=== PATIENT | female | born 1955 ===

== ENCOUNTER 2018-05-16 15:04 | Inpatient (IN) | payer OTHER ==
[2018-05-16] MEDS ORDERED: Sodium Chloride 0.9% 1,000 ML IV ONE ×2 (15:21→16:19)
[2018-05-16] MEDS ORDERED: Gadodiamide 287 mg/ml 20 ml IV ONE (15:24)
--- NOTE | 2018-05-16 15:24 | C.PDOC ---
History Of Present Illness 62 year old female presents to the ED complaining of abdominal pain since 1100 this morning. Associated symptoms include nausea, vomiting and loose stool. Patient states prior to symptoms she ate chicken soup that was left outside from last night. Last bowel movement was today. Time Seen by Provider: 05/16/18 15:12 Chief Complaint (Nursing): Abdominal Pain History Per: Patient History/Exam Limitations: no limitations Onset/Duration Of Symptoms: Hrs Current Symptoms Are (Timing): Still Present Context: Food Location Of Pain/Discomfort: Diffuse Radiation Of Pain To:: None Associated Symptoms: Nausea, Vomiting, Diarrhea Last Bowel Movement: Today Past Medical History Reviewed: Historical Data, Nursing Documentation, Vital Signs Vital Signs: Last Vital Signs Temp 98.2 F 05/16/18 15:07 Pulse 61 05/16/18 15:07 Resp 21 05/16/18 15:07 BP 152/80 H 05/16/18 15:07 Pulse Ox 96 05/16/18 16:20 - Medical History PMH: HTN, Hyperlipidemia Surgical History: No Surg Hx Family History: States: No Known Family Hx - Social History Hx Alcohol Use: No Hx Substance Use: No Review Of Systems Gastrointestinal: Positive for: Nausea, Vomiting, Abdominal Pain, Diarrhea Physical Exam - Physical Exam Appears: Non-toxic Skin: Warm, Dry, No Rash, Other (swelling around nail bed of 5th finger of right hand, no induration, no fluctuance ) Head: Atraumatic Eye(s): bilateral: Normal Inspection Nose: Normal Oral Mucosa: Moist Neck: Normal ROM Chest: Symmetrical Cardiovascular: Rhythm Regular, Murmur Respiratory: Normal Breath Sounds, No Rales, No Rhonchi, No Wheezing Gastrointestinal/Abdominal: Bowel Sounds (active ), Tenderness (Diffused tenderness ), No Guarding, No Rebound Extremity: Normal ROM Neurological/Psych: Oriented x3, Normal Speech Gait: Steady ED Course And Treatment - Laboratory Results Result Diagrams: 05/16/18 15:50 05/16/18 15:50 O2 Sat by Pulse Oximetry: 96 (RA) Pulse Ox Interpretation: Normal Medical Decision Making Medical Decision Making: Orders: - Bloodwork - Pepcid 20mg IVP - Toradol 30mg IVP - Zofran 4mg IVP - Fluids - UA Progress: 1615 Labs reviewed and has leukocytosis. Lipase is elevated >1000. Will order IV CT A/P. Patient re-evaluated at bedside and states pain has improved. She denies any pain localized to epigastric or RUQ. Abdomen remains soft, negative [place] sign. Patient reevaluated and reports pain has returned, not as severe but has pain. CT report is still pending, radiology sent report to [id number] Contact hospitalist for obs admission of pancreatitis. CT results still pending. Spoke with DR Rustam Tabares who requests adding alcohol and UDS. Also to admit to incoming hospitalist Dr Llanos Disposition - Disposition Disposition: HOSPITALIZED Disposition Time: 18:22 Condition: STABLE - POA Present On Arrival: None - Clinical Impression Clinical Impression: Pancreatitis - PA / DATA ENTRY / Resident Statement MD/DO has reviewed & agrees with the documentation as recorded. - Scribe Statement The provider has reviewed the documentation as recorded by the Scribe Cathy Mccauley All medical record entries made by the Phyllisibe were at my direction and personally dictated by me. I have reviewed the chart and agree that the record accurately reflects my personal performance of the history, physical exam, medical decision making, and the department course for this patient. I have also personally directed, reviewed, and agree with the discharge instructions and disposition. Decision To Admit - Pt Status Changed To: Hospital Disposition Of: Observation - . Bed Request Type: Regular Admitting Physician: Jeff Llanos Patient Diagnosis: Pancreatitis
[2018-05-16] MEDS ORDERED: Sodium Chloride 0.9% 1,000 ML ONE (15:43)
[2018-05-16 16:04] LABS: BASO # 0.1 K/uL (0.0-0.2); BASO % 0.3 % (0.0-2.0); EOS % 0.2 % (0.0-4.0); HEMOGLOBIN 13.2 g/dL (11.0-16.0); LYMPH # 2.5 K/uL (1.0-4.3); LYMPH % 11.6 % (20.0-40.0); MEAN CELL VOLUME 75.3 fL (81.0-99.0); MEAN CORPUSCULAR HEMOGLOBIN 26.2 pg (27.0-31.0); MEAN CORPUSCULAR HGB CONC 34.7 g/dL (33.0-37.0); MEAN PLATELET VOLUME 8.5 fL (7.2-11.7); MONO # 0.7 K/uL (0.0-0.8); MONO % 3.3 % (0.0-10.0); NEUT # 18.4 K/uL (1.8-7.0); NEUT % 84.6 % (50.0-75.0); NRBC % 0.1 % (0.0-2.0); RBC 5.06 Mil/uL (3.80-5.20); RED CELL DISTRIBUTION WIDTH 15.7 % (11.5-14.5); WHITE BLOOD COUNT 21.8 K/uL (4.8-10.8)
[2018-05-16 16:13] LABS: ALB/GLOB RATIO 1.1 (1.0-2.1); ALBUMIN 4.1 g/dL (3.5-5.0); GFR NON-AFRICAN AMERICAN > 60; LIPASE 1739 U/L (23-300)
[2018-05-16 16:15] LABS: ALT/SGPT 455 U/L (9-52); AST/SGOT 188 U/L (14-36); BLOOD UREA NITROGEN 12 mg/dL (7-17)
[2018-05-16 16:51] LABS: URINE BACTERIA RARE (<OCC); URINE BILIRUBIN NEGATIVE (NEGATIVE); URINE BLOOD NEGATIVE (NEGATIVE); URINE CLARITY Clear (Clear); URINE GLUCOSE (UA) 3+ mg/dL (Normal); URINE LEUKOCYTE ESTERASE NEG Leu/uL (Negative); URINE PROTEIN NEGATIVE (NEGATIVE)
[2018-05-16 17:03] LABS: URINE COLOR YELLOW (YELLOW)
[2018-05-16] MEDS ORDERED: Iodixanol 320 MG/ML 100 ML BOTTLE IV ONE (17:20)
--- NOTE | 2018-05-16 19:19 | CP.PCM.HP ---
<Aung Vaughan - Last Filed: 05/16/18 21:26> History of Present Illness - History of Present Illness History of Present Illness: This patient is a 62 year old female with a PMHx of HTN, and diabetes who presents to the hospital with complaints of 10/10, sharp, postprandial abdominal pain without radiation that began at 11AM today. Patient describes the pain as "crushing" and points to her her lateral abdomen b/l when describing where the pain is. Patient has had this pain before in the past after eating with spontaneous resolution. She denies any fevers, chills, headache, lightheadedness, chest pain, shortness of breath, palpitations, or urinary symptoms. Patient did complain of nausea, and about 4-5 episodes of NBNB vomiting while at home. She also complained of 1 non-bloody loose bowel movement. ROS: As stated above PMHx: HTN, Diabetes PSHx: Fibroma/Ovarian removal (Over 20 years ago) Allergies: Penicllin (Dizziness) SocialHx: Denies Tobacco, alcohol, and illicit drug use Hos: Denies Fam Hx: Mother (HTN), Dad( Asthma/Bronchitis) Meds: Per NOV. PMD: Dr. Crowell. Present on Admission - Present on Admission Any Indicators Present on Admission: No Review of Systems - Review of Systems Review of Systems: As per HPI Past Patient History - Past Social History Smoking Status: Never Smoked - CARDIAC Hx Hypertension: Yes - ENDOCRINE/METABOLIC Hx Diabetes Mellitus Type 2: Yes - PSYCHIATRIC Hx Substance Use: No Meds Allergies/Adverse Reactions: Allergies Allergy/AdvReac Type Severity Reaction Status Date / Time No Known Allergies Allergy Verified 05/16/18 15:11 Physical Exam - Constitutional Appears: Well, Non-toxic, No Acute Distress - Head Exam Head Exam: ATRAUMATIC, NORMAL INSPECTION, NORMOCEPHALIC - Eye Exam Eye Exam: EOMI, Normal appearance, PERRL. absent: Scleral icterus - ENT Exam ENT Exam: Mucous Membranes Moist - Neck Exam Neck exam: Negative for: Lymphadenopathy - Respiratory Exam Respiratory Exam: Clear to Auscultation Bilateral, NORMAL BREATHING PATTERN. absent: Accessory Muscle Use, Rales, Rhonchi, Wheezes - Cardiovascular Exam Cardiovascular Exam: RRR, +S1, +S2. absent: JVD - GI/Abdominal Exam GI & Abdominal Exam: Normal Bowel Sounds, Soft, Tenderness (RUQ, Epigastric, LLQ /RLQ(Minor) ). absent: Firm, Guarding, Hernia, Rebound, Rigid Additional comments: Lockhart's Negative - Extremities Exam Extremities exam: Positive for: normal capillary refill. Negative for: pedal edema - Neurological Exam Neurological exam: Alert, Oriented x3 - Psychiatric Exam Psychiatric exam: Normal Affect, Normal Mood - Skin Skin Exam: Dry, Intact, Normal Color, Warm Results - Vital Signs Recent Vital Signs: Last Vital Signs Temp 99.9 F H 05/16/18 18:34 Pulse 75 05/16/18 18:34 Resp 18 05/16/18 18:34 BP 126/67 05/16/18 18:34 Pulse Ox 93 L 05/16/18 18:34 - Labs Result Diagrams: 05/16/18 15:50 05/16/18 15:50 Labs: Laboratory Results - last 24 hr 05/16/18 05/16/18 05/16/18 15:50 15:50 16:45 WBC 21.8 H RBC 5.06 Hgb 13.2 Hct 38.1 MCV 75.3 L MCH 26.2 L MCHC 34.7 RDW 15.7 H Plt Count 525 H MPV 8.5 Neut % (Auto) 84.6 H Lymph % (Auto) 11.6 L [place] % (Auto) 3.3 Eos % (Auto) 0.2 Baso % (Auto) 0.3 Neut # (Auto) 18.4 H Lymph # (Auto) 2.5 [place] # (Auto) 0.7 Eos # (Auto) 0.0 Baso # (Auto) 0.1 Sodium 137 Potassium 4.7 Chloride 96 L Carbon Dioxide 30 Anion Gap 16 BUN 12 Creatinine 0.6 L Est GFR ( Amer) > 60 Est GFR (Non-Af Amer) > 60 Random Glucose 355 H Calcium 10.0 Total Bilirubin 2.3 H AST 188 H ALT 455 H Alkaline Phosphatase 364 H Total Protein 7.9 Albumin 4.1 Globulin 3.9 Albumin/Globulin Ratio 1.1 Lipase 1739 H Urine Color Yellow Urine Clarity Clear Urine pH 6.0 Ur Specific [place] 1.027 Urine Protein Negative Urine Glucose (UA) 3+ H Urine Ketones 1+ H Urine Blood Negative Urine Nitrate Negative Urine Bilirubin Negative Urine Urobilinogen 4.0 H Ur Leukocyte Esterase Neg Urine WBC (Auto) 2 Urine RBC (Auto) 1 Urine Bacteria Rare Alcohol, Quantitative 05/16/18 18:36 WBC RBC Hgb Hct MCV MCH MCHC RDW Plt Count MPV Neut % (Auto) Lymph % (Auto) [place] % (Auto) Eos % (Auto) Baso % (Auto) Neut # (Auto) Lymph # (Auto) [place] # (Auto) Eos # (Auto) Baso # (Auto) Sodium Potassium Chloride Carbon Dioxide Anion Gap BUN Creatinine Est GFR ( Amer) Est GFR (Non-Af Amer) Random Glucose Calcium Total Bilirubin AST ALT Alkaline Phosphatase Total Protein Albumin Globulin Albumin/Globulin Ratio Lipase Urine Color Urine Clarity Urine pH Ur Specific [place] Urine Protein Urine Glucose (UA) Urine Ketones Urine Blood Urine Nitrate Urine Bilirubin Urine Urobilinogen Ur Leukocyte Esterase Urine WBC (Auto) Urine RBC (Auto) Urine Bacteria Alcohol, Quantitative < 10 Assessment & Plan - Assessment and Plan (Free Text) Assessment: 62 year old female with a PMHx of HTN, and diabetes who presents to the hospital with complaints of 10/10, sharp, postprandial abdominal pain without radiation. CT Scan on admission showed dilated common bile duct. Plan: 1. Choledocholithiasis CT Abd/Pelvis (Adm): Shows stone in the CBD. ER: Bloodwork, Pepcid, Toradol 30mg IVP, Zofran 4mg IVP, NS Bolus x 2, UA WBC/T.Panda/AST/ALT/Alk Phos/Lipase - Elevated. UA/Urine Tox - Negative Aztreonam 1GM Q8H Morphine 1mg Q4PRN Zofran PRN Protonix Daily NS @ 100mls/hr Tylenol PRN NPO Diet General Surgery Consulted (Dr. Marshall) GI Consulted (Dr. López) 2. Hx of HTN Cont. Home Meds Losartan 50mg PO Daily 3. Hx of Diabetes. Home Metformin (Held) Insulin Sliding Scale (Medium) ACHS Proph SCD's Protonix NPO Patient seen and discussed with Attending (Dr. Llanos) Aung Vaughan, PGY-2 <Jeff Llanos P - Last Filed: 05/17/18 07:14> Results - Vital Signs Recent Vital Signs: Last Vital Signs Temp 99.2 F 05/17/18 00:33 Pulse 79 05/17/18 00:33 Resp 20 05/17/18 00:33 BP 126/73 05/17/18 00:33 Pulse Ox 94 L 05/17/18 00:35 - Labs Result Diagrams: 05/16/18 15:50 05/16/18 15:50 Labs: Laboratory Results - last 24 hr 05/16/18 05/16/18 05/16/18 15:50 15:50 16:45 WBC 21.8 H RBC 5.06 Hgb 13.2 Hct 38.1 MCV 75.3 L MCH 26.2 L MCHC 34.7 RDW 15.7 H Plt Count 525 H MPV 8.5 Neut % (Auto) 84.6 H Lymph % (Auto) 11.6 L [place] % (Auto) 3.3 Eos % (Auto) 0.2 Baso % (Auto) 0.3 Neut # (Auto) 18.4 H Lymph # (Auto) 2.5 [place] # (Auto) 0.7 Eos # (Auto) 0.0 Baso # (Auto) 0.1 Sodium 137 Potassium 4.7 Chloride 96 L Carbon Dioxide 30 Anion Gap 16 BUN 12 Creatinine 0.6 L Est GFR ( Amer) > 60 Est GFR (Non-Af Amer) > 60 POC Glucose (mg/dL) Random Glucose 355 H Calcium 10.0 Total Bilirubin 2.3 H AST 188 H ALT 455 H Alkaline Phosphatase 364 H Total Protein 7.9 Albumin 4.1 Globulin 3.9 Albumin/Globulin Ratio 1.1 Lipase 1739 H Urine Color Yellow Urine Clarity Clear Urine pH 6.0 Ur Specific [place] 1.027 Urine Protein Negative Urine Glucose (UA) 3+ H Urine Ketones 1+ H Urine Blood Negative Urine Nitrate Negative Urine Bilirubin Negative Urine Urobilinogen 4.0 H Ur Leukocyte Esterase Neg Urine WBC (Auto) 2 Urine RBC (Auto) 1 Urine Bacteria Rare Urine Opiates Screen Urine Methadone Screen Ur Barbiturates Screen Ur Phencyclidine Scrn Ur Amphetamines Screen U Benzodiazepines Scrn U Oth Cocaine Metabols U Cannabinoids Screen Alcohol, Quantitative 05/16/18 05/16/18 05/16/18 18:36 20:42 21:13 WBC RBC Hgb Hct MCV MCH MCHC RDW Plt Count MPV Neut % (Auto) Lymph % (Auto) [place] % (Auto) Eos % (Auto) Baso % (Auto) Neut # (Auto) Lymph # (Auto) [place] # (Auto) Eos # (Auto) Baso # (Auto) Sodium Potassium Chloride Carbon Dioxide Anion Gap BUN Creatinine Est GFR ( Amer) Est GFR (Non-Af Amer) POC Glucose (mg/dL) 323 H Random Glucose Calcium Total Bilirubin AST ALT Alkaline Phosphatase Total Protein Albumin Globulin Albumin/Globulin Ratio Lipase Urine Color Urine Clarity Urine pH Ur Specific [place] Urine Protein Urine Glucose (UA) Urine Ketones Urine Blood Urine Nitrate Urine Bilirubin Urine Urobilinogen Ur Leukocyte Esterase Urine WBC (Auto) Urine RBC (Auto) Urine Bacteria Urine Opiates Screen Negative Urine Methadone Screen Negative Ur Barbiturates Screen Negative Ur Phencyclidine Scrn Negative Ur Amphetamines Screen Negative U Benzodiazepines Scrn Negative U Oth Cocaine Metabols Negative U Cannabinoids Screen Negative Alcohol, Quantitative < 10 05/17/18 02:14 WBC RBC Hgb Hct MCV MCH MCHC RDW Plt Count MPV Neut % (Auto) Lymph % (Auto) [place] % (Auto) Eos % (Auto) Baso % (Auto) Neut # (Auto) Lymph # (Auto) [place] # (Auto) Eos # (Auto) Baso # (Auto) Sodium Potassium Chloride Carbon Dioxide Anion Gap BUN Creatinine Est GFR ( Amer) Est GFR (Non-Af Amer) POC Glucose (mg/dL) 299 H Random Glucose Calcium Total Bilirubin AST ALT Alkaline Phosphatase Total Protein Albumin Globulin Albumin/Globulin Ratio Lipase Urine Color Urine Clarity Urine pH Ur Specific [place] Urine Protein Urine Glucose (UA) Urine Ketones Urine Blood Urine Nitrate Urine Bilirubin Urine Urobilinogen Ur Leukocyte Esterase Urine WBC (Auto) Urine RBC (Auto) Urine Bacteria Urine Opiates Screen Urine Methadone Screen Ur Barbiturates Screen Ur Phencyclidine Scrn Ur Amphetamines Screen U Benzodiazepines Scrn U Oth Cocaine Metabols U Cannabinoids Screen Alcohol, Quantitative Attending/Attestation - Attestation I have personally seen and examined this patient.: Yes I have fully participated in the care of the patient.: Yes I have reviewed all pertinent clinical information: Yes Notes (Text): Assessment * Gall stone pancreatitis, symptoms for 1 day, at time of exam the symptoms improved probably passed the stone * DM * Cholelithiasis, tranaminitis from above Plan * NPO * Azactam as patient is allergic to pcn * IVF * Hold metformin, insulin sliding scale * Serial USG to follow if calculus passed, along with monitor AST/ALT, lipase * Cholecystectomy once clinically obstructive symptoms resolved * Surgery consult * GI consult, as may need for ERCP if obstructive symptoms not resolved * See orders for detail.
[2018-05-16] MEDS ORDERED: Sodium Chloride 0.9% 1,000 ML IV SCH ×5 (19:30→21:42)
[2018-05-16] MEDS ORDERED: Aztreonam 1 GM in Sodium Chloride 0.9% 100 ML IVPB ONE (20:22)
[2018-05-16 21:23] LABS: BARBITURATES, UR NEGATIVE (NEGATIVE); BENZODIAZEPINES, UR NEGATIVE (NEGATIVE); OPIATES, UR NEGATIVE (NEGATIVE); PHENCYCLIDINE, UR NEGATIVE (NEGATIVE)
[2018-05-16] MEDS: (Novolin R) Insulin Human Regular 100 units/ml vial SC SCH (21:41)
--- NOTE | 2018-05-16 21:48 | CP.PCM.CON ---
History of Present Illness - History of Present Illness History of Present Illness: Gen Sx: Dr Marshall Re: Gallstone pancreatitis Pt is a 62F with a PMHx of HTN and DM. Pt presents w/ chief complaint of 10/10 , sharp RUQ pain. Pt states the pain started after eating this morning around 11AM. Pt states she has had this pain at least 4 times over the past two years, and is always associated with eating. It is also associated with nausea and pt has had several episodes of non-billious non-bloody emesis as well. Denies any f/c, sob or chest pain. PMHx: HTN, Diabetes PSHx: open unilateral oopherectomy and possibly myomectomy (pt unclear) Allergies: Penicllin (Dizziness) CT in ED shows distended CBD with intra-ductal choledocholithiasis and resultant dilation of both intra-hepatic and extra-hepatic ducts. Review of Systems - Review of Systems All systems: reviewed and no additional remarkable complaints except (as per hpi ) Past Patient History - Past Social History Smoking Status: Never Smoked - CARDIAC Hx Hypertension: Yes - ENDOCRINE/METABOLIC Hx Diabetes Mellitus Type 2: Yes - PSYCHIATRIC Hx Substance Use: No Meds Allergies/Adverse Reactions: Allergies Allergy/AdvReac Type Severity Reaction Status Date / Time No Known Allergies Allergy Verified 05/16/18 15:11 - Medications Medications: Current Medications Acetaminophen (Tylenol 325 Mg Supp) 325 mg IA Q6 PRN PRN Reason: Fever >100.4 F Aztreonam 1 gm/ Sodium (Chloride) 100 mls @ 100 mls/hr IVPB Q8H DAVID PRN Reason: Protocol Sodium Chloride (Sodium Chloride 0.9%) 1,000 mls @ 200 mls/hr IV .Q5H [facility] Insulin Human Regular (Novolin R) 0 unit SC ACHS DAVID PRN Reason: Protocol Last Admin: 05/16/18 21:41 Dose: 2 units Losartan Potassium (Cozaar) 50 mg PO DAILY [facility] Morphine Sulfate (Morphine) 1 mg IVP Q4H PRN PRN Reason: Pain, severe (8-10) Ondansetron HCl (Zofran Inj) 4 mg IVP Q6H PRN PRN Reason: Nausea/Vomiting Pantoprazole Sodium (Protonix Inj) 40 mg IVP DAILY [facility] Pneumococcal Polyvalent Vaccine (Pneumovax 23 Vaccine) 0.5 ml IM .ONCE ONE Stop: 05/18/18 10:01 Physical Exam - Constitutional Appears: Non-toxic, No Acute Distress - Head Exam Head Exam: NORMAL INSPECTION - Eye Exam Eye Exam: Normal appearance - ENT Exam ENT Exam: Mucous Membranes Dry - Respiratory Exam Respiratory Exam: absent: Respiratory Distress - Cardiovascular Exam Cardiovascular Exam: REGULAR RHYTHM. absent: Tachycardia - GI/Abdominal Exam GI & Abdominal Exam: Soft, Tenderness (epigastric and RUQ). absent: Distended, Firm, Guarding - Extremities Exam Extremities exam: Negative for: pedal edema - Neurological Exam Neurological exam: Alert, Oriented x3 - Psychiatric Exam Psychiatric exam: Normal Affect, Normal Mood Results - Vital Signs Recent Vital Signs: Last Vital Signs Temp 99.6 F 05/16/18 20:02 Pulse 75 05/16/18 18:34 Resp 18 05/16/18 18:34 BP 126/67 05/16/18 18:34 Pulse Ox 93 L 05/16/18 18:34 - Labs Result Diagrams: 05/16/18 15:50 05/16/18 15:50 Labs: Laboratory Results - last 24 hr 05/16/18 05/16/18 05/16/18 15:50 15:50 16:45 WBC 21.8 H RBC 5.06 Hgb 13.2 Hct 38.1 MCV 75.3 L MCH 26.2 L MCHC 34.7 RDW 15.7 H Plt Count 525 H MPV 8.5 Neut % (Auto) 84.6 H Lymph % (Auto) 11.6 L [place] % (Auto) 3.3 Eos % (Auto) 0.2 Baso % (Auto) 0.3 Neut # (Auto) 18.4 H Lymph # (Auto) 2.5 [place] # (Auto) 0.7 Eos # (Auto) 0.0 Baso # (Auto) 0.1 Sodium 137 Potassium 4.7 Chloride 96 L Carbon Dioxide 30 Anion Gap 16 BUN 12 Creatinine 0.6 L Est GFR ( Amer) > 60 Est GFR (Non-Af Amer) > 60 POC Glucose (mg/dL) Random Glucose 355 H Calcium 10.0 Total Bilirubin 2.3 H AST 188 H ALT 455 H Alkaline Phosphatase 364 H Total Protein 7.9 Albumin 4.1 Globulin 3.9 Albumin/Globulin Ratio 1.1 Lipase 1739 H Urine Color Yellow Urine Clarity Clear Urine pH 6.0 Ur Specific [place] 1.027 Urine Protein Negative Urine Glucose (UA) 3+ H Urine Ketones 1+ H Urine Blood Negative Urine Nitrate Negative Urine Bilirubin Negative Urine Urobilinogen 4.0 H Ur Leukocyte Esterase Neg Urine WBC (Auto) 2 Urine RBC (Auto) 1 Urine Bacteria Rare Urine Opiates Screen Urine Methadone Screen Ur Barbiturates Screen Ur Phencyclidine Scrn Ur Amphetamines Screen U Benzodiazepines Scrn U Oth Cocaine Metabols U Cannabinoids Screen Alcohol, Quantitative 05/16/18 05/16/18 05/16/18 18:36 20:42 21:13 WBC RBC Hgb Hct MCV MCH MCHC RDW Plt Count MPV Neut % (Auto) Lymph % (Auto) [place] % (Auto) Eos % (Auto) Baso % (Auto) Neut # (Auto) Lymph # (Auto) [place] # (Auto) Eos # (Auto) Baso # (Auto) Sodium Potassium Chloride Carbon Dioxide Anion Gap BUN Creatinine Est GFR ( Amer) Est GFR (Non-Af Amer) POC Glucose (mg/dL) 323 H Random Glucose Calcium Total Bilirubin AST ALT Alkaline Phosphatase Total Protein Albumin Globulin Albumin/Globulin Ratio Lipase Urine Color Urine Clarity Urine pH Ur Specific [place] Urine Protein Urine Glucose (UA) Urine Ketones Urine Blood Urine Nitrate Urine Bilirubin Urine Urobilinogen Ur Leukocyte Esterase Urine WBC (Auto) Urine RBC (Auto) Urine Bacteria Urine Opiates Screen Negative Urine Methadone Screen Negative Ur Barbiturates Screen Negative Ur Phencyclidine Scrn Negative Ur Amphetamines Screen Negative U Benzodiazepines Scrn Negative U Oth Cocaine Metabols Negative U Cannabinoids Screen Negative Alcohol, Quantitative < 10 Assessment & Plan - Assessment and Plan (Free Text) Assessment: 62F with gallstone pancreatitis Plan: aggressive IV fluid hydration GI consult for ERCP keep NPO until pain resolves highly recommend cholecystectomy prior to discharge will schedule once pancreatitis resolves d/w Dr Rolando Barbour, PGY4
[2018-05-17 07:38] LABS: BASO # 0.1 K/uL (0.0-0.2); BASO % 0.5 % (0.0-2.0); EOS % 0.3 % (0.0-4.0); HEMOGLOBIN 11.9 g/dL (11.0-16.0); LYMPH # 1.6 K/uL (1.0-4.3); MEAN CELL VOLUME 73.9 fL (81.0-99.0); MEAN CORPUSCULAR HEMOGLOBIN 26.6 pg (27.0-31.0); MEAN PLATELET VOLUME 8.6 fL (7.2-11.7); MONO # 0.6 K/uL (0.0-0.8); MONO % 4.6 % (0.0-10.0); NEUT # 10.3 K/uL (1.8-7.0); NEUT % 81.6 % (50.0-75.0); RBC 4.49 Mil/uL (3.80-5.20); RED CELL DISTRIBUTION WIDTH 15.1 % (11.5-14.5); WHITE BLOOD COUNT 12.7 K/uL (4.8-10.8)
[2018-05-17 07:40] LABS: INR 1.1; PROTHROMBIN TIME 12.2 SECONDS (9.7-12.2)
[2018-05-17 08:21] LABS: ALB/GLOB RATIO 1.2 (1.0-2.1); ALBUMIN 3.7 g/dL (3.5-5.0); ALT/SGPT 423 U/L (9-52); AMYLASE 275 U/L (30-110); AST/SGOT 187 U/L (14-36); BLOOD UREA NITROGEN 8 mg/dL (7-17); CALCIUM 9.3 mg/dl (8.6-10.4); GFR NON-AFRICAN AMERICAN > 60; LIPASE 2392 U/L (23-300)
[2018-05-17] MEDS: (Novolin R) Insulin Human Regular 100 units/ml vial SC SCH ×4 (08:30→21:24)
[2018-05-17] MEDS: Sodium Chloride 0.9% 1,000 ML IV SCH ×3 (09:00→16:27)
--- NOTE | 2018-05-17 09:33 | CP.PCM.PN ---
<Maddie Llanes - Last Filed: 05/17/18 16:22> Subjective - Date & Time of Evaluation Date of Evaluation: 05/17/18 Time of Evaluation: 09:33 - Subjective Subjective: Patient was seen and examined with family at bedside today. She is in no acute distress. She reports that her only current discomfort is a twisting pain rated 2/10 in her epigastrium. Otherwise, she denies nausea, vomiting, chest pain, dizziness, palpitations, headache, shortness of breath, fever, or chills. She notes her last episode of nonbloody nonbilious vomiting was at 1 am and she last ate yesterday morning. She notes her blood sugars are usually just slightly above normal though she is uncertain of the values. She last took her home medications yesterday morning. She is back from her ERCP where she got a stent placed. Is for MRCP later this PM. Objective - Vital Signs/Intake and Output Vital Signs (last 24 hours): Temp Pulse Resp BP Pulse Ox 99.2 F 79 20 126/73 97 05/17/18 00:33 05/17/18 00:33 05/17/18 00:33 05/17/18 00:33 05/17/18 04:35 Intake and Output: 05/17/18 05/17/18 06:59 18:59 Intake Total 1000 Balance 1000 - Medications Medications: Current Medications Acetaminophen (Tylenol 325 Mg Supp) 325 mg SC Q6 PRN PRN Reason: Fever >100.4 F Aztreonam 1 gm/ Sodium (Chloride) 100 mls @ 100 mls/hr IVPB Q8H DAVID PRN Reason: Protocol Sodium Chloride (Sodium Chloride 0.9%) 1,000 mls @ 125 mls/hr IV .Q8H [facility] Last Admin: 05/17/18 09:00 Dose: Not Given Insulin Human Regular (Novolin R) 0 unit SC ACHS DAVID PRN Reason: Protocol Last Admin: 05/17/18 08:30 Dose: Not Given Losartan Potassium (Cozaar) 50 mg PO DAILY DAVID Morphine Sulfate (Morphine) 1 mg IVP Q4H PRN PRN Reason: Pain, severe (8-10) Ondansetron HCl (Zofran Inj) 4 mg IVP Q6H PRN PRN Reason: Nausea/Vomiting Pantoprazole Sodium (Protonix Inj) 40 mg IVP DAILY DAVID Pneumococcal Polyvalent Vaccine (Pneumovax 23 Vaccine) 0.5 ml IM .ONCE ONE Stop: 05/18/18 10:01 - Labs Labs: 05/17/18 07:26 05/17/18 07:26 PT 12.2 SECONDS (9.7-12.2) 05/17/18 07:26 INR 1.1 05/17/18 07:26 APTT 35 SECONDS (21-34) H 05/17/18 07:26 - Constitutional Appears: Non-toxic, No Acute Distress - Head Exam Head Exam: ATRAUMATIC, NORMOCEPHALIC - Eye Exam Eye Exam: EOMI, Normal appearance. absent: Conjunctival injection - ENT Exam ENT Exam: Mucous Membranes Moist - Neck Exam Neck Exam: Full ROM - Respiratory Exam Respiratory Exam: Clear to Ausculation Bilateral. absent: Rales, Rhonchi, Wheezes - Cardiovascular Exam Cardiovascular Exam: RRR, +S1, +S2. absent: Gallop, Rubs, Murmur - GI/Abdominal Exam GI & Abdominal Exam: Soft, Normal Bowel Sounds. absent: Distended, Rigid, Pulsatile Mass, Rebound Additional comments: mild LUQ tenderness to deep palpation, moderate epigastric tenderness to deep palpation, severe RUQ tenderness to shallow and deep palpation positive Lockhart's sign, negative McBurney's point - Extremities Exam Additional comments: Conteh test negative, no LE edema, peripheral pulses palpable bilaterally ( radial, DP, PT) peripheral access R arm - Back Exam Back Exam: absent: CVA tenderness (L), CVA tenderness (R) - Neurological Exam Neurological Exam: Alert, Awake, CN II-XII Intact, Oriented x3 - Psychiatric Exam Psychiatric exam: Normal Affect, Normal Mood - Skin Skin Exam: Intact, Normal Color Additional comments: mild edema and erythema proximal to the lateral nail border of the right first digit Assessment and Plan - Assessment and Plan (Free Text) Assessment: 62 year old female with a PMHx of HTN and DM admitted for choledocholithiasis and pancreatitis s/p ERCP with stent. Plan: Choledocholithiasis - CT abdomen/pelvis (05/16/2018) - Cholelithiasis with a contracted distorted gallbladder. Slightly thickened indurated gallbladder wall with some infiltration in the adjacent mesenteries suggesting acute cholecystitis. There is choledocholithiasis with dilatation of the CBD and intrahepatic biliary ductal dilatation - CXR (05/17/2018) - Poor inspiration with low lung volumes, crowded bronchovascular markings and minor bibasilar atelectasis - Abdominal Ultrasound (05/17/2018) - Mild hepatomegaly. Diffuse increased echogenicity in the liver may reflect hepatic steatosis however parenchymal infectious/inflammatory etiologies cannot be excluded. Cholelithiasis, mild diffuse dilation of the common bile duct without evidence for choledocholithiasis. - ERCP (05/17/18) - biliary stent placed. full report pending - EKG (05/17/2018): ordered - Labs reviewed: - Lipase - 1739 --> 2372 - AST - 188 --> 187 - ALT - 455 --> 423 - T Bili - 2.3 --> 3.9 - WBC - 21.8 --> 12.7 - UA/Urine Tox - Negative - Patient is NPO for MRCP later this PM - Surgery will decide on cholecystectomy w/wo intraoperative cholangiogram pending GI recs - Pain controlled with Morphine 4 mg q4h PRN - Nausea well controlled with Zofran 4 mg IVP q4h PRN, Reglan 5mg IVP q6h prn - Benadryl 25mg IVP daily prn for itching - Tylenol 650 mg rectally prn ordered for F temp > 100.4 - IV NS at 125 mls/hr - Leukocytosis treated with Aztreonam 1 gm IVPB qd and Flagyl 500 mg IVPB q8h - Surgery consult placed (Dr. Marshall) - help appreciated - GI consult placed to Dr. López (Dr. Kirk pimentel) - help appreciated - f/u AFP, CA 19-9, CEA, A1c, lipid panel, coags Pancreatitis, acute - likely secondary to cholelithiasis - lipase OA 1739 - Patient is NPO for bowel rest - Cont NS@125 - Zofran and Reglan prn - Morphine prn Hx of HTN - Home ASA 81mg po daily held d/t NPO status - Home Losartan 50 mg po daily held d/t NPO status - Monitor BP Hx of DM - Blood sugar: 355 --> 280 - Accucheck q6h - Insulin sliding scale - moderate ordered - Metformin held d/t NPO status - Atorvastatin 20 mg po daily held d/t NPO status Prophylaxis - SCDs - Protonix 40 mg IV qd - CI chemical VTE d/w Dr. Remy Llanes PGY-1 <Jennifer Alberto V - Last Filed: 05/17/18 18:32> Objective - Vital Signs/Intake and Output Vital Signs (last 24 hours): Temp Pulse Resp BP Pulse Ox 100 F H 94 H 20 147/78 94 L 05/17/18 18:06 05/17/18 13:10 05/17/18 16:01 05/17/18 13:10 05/17/18 13:10 Intake and Output: 05/17/18 05/17/18 06:59 18:59 Intake Total 1999 Balance 1999 - Medications Medications: Current Medications Acetaminophen (Tylenol 325 Mg Supp) 325 mg SC Q6 PRN PRN Reason: Fever >100.4 F Last Admin: 05/17/18 18:06 Dose: 325 mg Aztreonam 1 gm/ Sodium (Chloride) 100 mls @ 100 mls/hr IVPB Q8H [facility]ID PRN Reason: Protocol Last Admin: 05/17/18 10:19 Dose: Not Given Sodium Chloride (Sodium Chloride 0.9%) 1,000 mls @ 125 mls/hr IV .Q8H [facility] Last Admin: 05/17/18 16:27 Dose: Not Given Metronidazole (Flagyl) 500 mg in 100 mls @ 100 mls/hr IVPB Q8H [facility]VAID PRN Reason: Protocol Last Admin: 05/17/18 14:59 Dose: Not Given Insulin Human Regular (Novolin R) 0 unit SC ACHS DAVID PRN Reason: Protocol Last Admin: 05/17/18 18:13 Dose: Not Given Losartan Potassium (Cozaar) 50 mg PO DAILY [facility] Last Admin: 05/17/18 10:19 Dose: Not Given Metoclopramide HCl (Reglan) 5 mg IVP Q6H DAVID Morphine Sulfate (Morphine) 1 mg IVP Q4H PRN PRN Reason: Pain, severe (8-10) Ondansetron HCl (Zofran Inj) 4 mg IVP Q6H PRN PRN Reason: Nausea/Vomiting Pantoprazole Sodium (Protonix Inj) 40 mg IVP DAILY [facility] Last Admin: 05/17/18 10:20 Dose: Not Given Zinc Acetate/Diphenhydramine (Benadryl 1% Zinc Acetate -0.1%) 1 cre TOP DAILY PRN PRN Reason: Itching / Pruritus - Labs Labs: 05/17/18 07:26 05/17/18 07:26 PT 12.2 SECONDS (9.7-12.2) 05/17/18 07:26 INR 1.1 05/17/18 07:26 APTT 35 SECONDS (21-34) H 05/17/18 07:26 Attending/Attestation - Attestation I have personally seen and examined this patient.: Yes I have fully participated in the care of the patient.: Yes I have reviewed all pertinent clinical information, including history, physical exam and plan: Yes Notes (Text): Patient seen, examined, and case discussed with day-time resident. Please note clarification: Dr López was on called 05/16/18, I believe being covered by Dr. Turcios. Dr. Frost is covering Dr. Turcios until Thursday/ given the holidays. I have clarified this with Dr. Frost, who will speak Dr. López to avoid further confusion. Patient underwent ERCP today noted for dilated biliary tract, likely secondary to gallstones, with one stent placed. per discussion with dr. frost, unable to visualize the cystic duct and there was concern if he went further for perforation; he does recommended for surgery for cholecystectomy and intraoperative cholangiogram. patient to be evaluated by surgery team. patient ordered for MRCP which is being completed later this afternoon. I spoke with the patient this afternoon accompanied by son, daughter in law, and . Daughter in law assisting in translation in regards to gallstones causing pancreatitis and obstruction and that patient will need further evaluation by surgery team. Patient does report pruritus; I have placed for topical benadryl cream. We have also ordered for baseline EKG and portable chest xray as well for preop. Assessment/Plan 1) Choledocholithiasis Assessment/Plan * GI (Dr. Turcios covering Dr. López who was solar energy installation manager 05/16/18) and Dr. Frost ( covering Dr. Turcios given holiday) * General surgery (Dr. Marshall) on case * Patient underwent ERCP today with stent, recommended for surgery given gallstones, cbd dilation, unable to visualize cyst duct * CT abdomen/pelvis (05/16/2018) - Cholelithiasis with a contracted distorted gallbladder. Slightly thickened indurated gallbladder wall with some infiltration in the adjacent mesenteries suggesting acute cholecystitis. There is choledocholithiasis with dilatation of the CBD and intrahepatic biliary ductal dilatation * CXR (05/17/2018) - Poor inspiration with low lung volumes, crowded bronchovascular markings and minor bibasilar atelectasis * Abdominal Ultrasound (05/17/2018) - Mild hepatomegaly. Diffuse increased echogenicity in the liver may reflect hepatic steatosis however parenchymal infectious/inflammatory etiologies cannot be excluded. Cholelithiasis, mild diffuse dilation of the common bile duct without evidence for choledocholithiasis. * ERCP (05/17/18) - biliary stent placed. full report pending * EKG (05/17/2018): ordered * Elevated bilirubin, and transaminitis * Patient is NPO for MRCP later this PM * Pain PRN: Morphine 4 mg q4h PRN * Nausea PRN: well controlled with Zofran 4 mg IVP q4h PRN, Reglan 5mg IVP q6h prn * Tylenol 650 mg rectally prn ordered for F temp > 100.4 * IV NS at 125 mls/hr * IV abx:Aztreonam 1 gm IVPB qd and Flagyl 500 mg IVPB q8h 2) Pancreatitis, Gallstone Assessment/Plan * likely secondary to cholelithiasis * lipase OA 1739 * Patient is NPO for bowel rest * Cont NS@125cc/hr * GI and general surgery on board 3) Hx of HTN Assessment/Plan * Home ASA 81mg po daily held d/t NPO status * Home Losartan 50 mg po daily held d/t NPO status * Monitor BP 4) Hx of DM Assessment/Plan * check a1c, lipid panel in AM * Accucheck q6h * Insulin sliding scale - moderate ordered * Metformin held d/t NPO status * Atorvastatin 20 mg po daily held d/t NPO status * hypoglycemic protocol 5) Prophylaxis * SCDs * Protonix 40 mg IV qd * CI chemical VTE Disposition: pending evaluation by surgery team. patient underwent ERCP today. Completed MRCP post ERCP. pending baseline ekg and chest xray for preadmission testing. changed to inpatient status given acute pancreatitis and choledocholithasis. surgery and anesthesia to discuss risks and benefits for procedure prior to OR.
[2018-05-17] MEDS: Aztreonam 1 GM in Sodium Chloride 0.9% 100 ML IVPB SCH ×2 (10:19→18:26)
--- NOTE | 2018-05-17 10:24 | US ---
Date of service: 05/17/2018 HISTORY: Stone in CBD COMPARISON: CT abdomen and pelvis performed earlier the same day. TECHNIQUE: Grayscale imaging was performed. FINDINGS: LIVER: Measures 16.9 cm in length. There is diffuse increased echogenicity of the liver parenchyma. No mass. No intrahepatic bile duct dilatation. GALLBLADDER: There are multiple gallstones. No wall thickening or pericholecystic fluid. The sonographic Lockhart's sign is negative. COMMON BILE DUCT: Measures 9 mm. Mild diffuse dilatation without sonographic evidence for choledocholithiasis. PANCREAS: Normal in size and echotexture. No mass. No ductal dilatation. RIGHT KIDNEY: Measures 10.6 cm in length. Normal echogenicity. No calculus, mass, or hydronephrosis. AORTA: No aneurysmal dilatation. IVC: Unremarkable. OTHER FINDINGS: None . IMPRESSION: Mild hepatomegaly. Diffuse increased echogenicity in the liver may reflect hepatic steatosis however parenchymal infectious/ inflammatory etiologies cannot be entirely excluded. Clinical and laboratory correlation is advised. . Cholelithiasis. Mild diffuse dilatation of the common bile duct without evidence for choledocholithiasis.
--- NOTE | 2018-05-17 10:25 | RAD ---
Date of service: 05/17/2018 HISTORY: preop,sat 94 on nasal cannula COMPARISON: No prior. FINDINGS: LUNGS: Poor inspiration with low lung volumes, crowded bronchovascular markings and minor bibasilar atelectasis PLEURA: No significant pleural effusion identified, no pneumothorax apparent. CARDIOVASCULAR: Heart size upper limits of normal/ borderline enlarged OSSEOUS STRUCTURES: No significant abnormalities. VISUALIZED UPPER ABDOMEN: Normal. OTHER FINDINGS: None. IMPRESSION: Poor inspiration with low lung volumes, crowded bronchovascular markings and minor bibasilar atelectasis
[2018-05-17] MEDS ORDERED: Glucagon Recombinant 1 mg Inj ONE (11:23)
[2018-05-17] MEDS ORDERED: Lactated Ringer's 1,000 ML IV ONE ×2 (11:30)
--- NOTE | 2018-05-17 11:38 | CT ---
Date of service: 05/16/2018 PROCEDURE: CT Abdomen and Pelvis with contrast HISTORY: abd pain and vomiting COMPARISON: None. TECHNIQUE: Contrast dose: Radiation dose: Total exam DLP = mGy-cm. This CT exam was performed using one or more of the following dose reduction techniques: Automated exposure control, adjustment of the mA and/or kV according to patient size, and/or use of iterative reconstruction technique. FINDINGS: LOWER THORAX: Heart size normal. No significant pericardial effusion. Tiny hiatal hernia. Mild passive/dependent type atelectasis both posterior lower lung powers. LIVER: Liver is normal in size measuring just over 16 cm in CC dimension. Mild diffuse fatty hepatic infiltration. There is mild intrahepatic biliary ductal dilatation. . GALLBLADDER AND BILE DUCTS: Gallbladder appears distorted and contracted with intraluminal calculi. There appears to be gallbladder wall thickening and/or induration with small amount pericholecystic infiltration. Dilatation of the common bile duct with choledocholithiasis. Concomitant the cholecystitis suspected. PANCREAS: Unremarkable. No gross lesion or ductal dilatation. SPLEEN: Unremarkable. ADRENALS: Unremarkable. No mass. KIDNEYS AND URETERS: Unremarkable. No hydronephrosis. No solid mass. VASCULATURE: Unremarkable. No aortic aneurysm. BOWEL: Evaluation of the bowel is somewhat limited due to the lack of oral contrast material. The stomach is partially distended with food debris liquid and air. Visualized loops of small bowel exhibit normal contour and caliber. No evidence of acute mechanical small bowel obstruction. Moderate amount of stool seen within cecum and at ascending colon suggesting mild fecal retention/ constipation. No definitive evidence of mural wall thickening. APPENDIX: Appendix is not seen with certainty on this study and there is a small radiopaque density near the inferior aspect of the wall of the cecum. Rule out prior appendicectomy PERITONEUM: Unremarkable. No free fluid. No free air. Small fat containing umbilical hernia. LYMPH NODES: Unremarkable. No enlarged lymph nodes. BLADDER: There is a PICC line urinary bladder wall which may in part be due to incomplete distention however on correlation with the urinalysis on recommended to exclude cystitis. REPRODUCTIVE: Hysterectomy BONES: No acute fracture. OTHER FINDINGS: None. IMPRESSION: Cholelithiasis with a contracted distorted gallbladder. . Slightly thickened indurated gallbladder wall with some infiltration in the adjacent mesenteries suggesting acute cholecystitis. Clinical correlation recommended. Enhancing There is is choledocholithiasis with dilatation of the common bile duct and intrahepatic biliary ductal dilatation. Fatty hepatic infiltration.
[2018-05-17] MEDS ORDERED: Midazolam 2 MG/2 ML VIAL ONE ×2 (11:43→12:03)
[2018-05-17] MEDS ORDERED: Propofol 10 mg/ml Inj (20 ML) ONE ×3 (11:43→12:21)
--- NOTE | 2018-05-17 12:44 | CP.PCM.PN ---
Subjective - Date & Time of Evaluation Date of Evaluation: 05/17/18 Time of Evaluation: 07:15 - Subjective Subjective: PGY-1 general surgery note for Dr Marshall Patient is seen and examined at bedside. Patient says her abdominal pain is much better than yesterday. Patient denies fever, chills, nausea, vomiting. Patient has not had a bowel movement. Objective - Vital Signs/Intake and Output Vital Signs (last 24 hours): Temp Pulse Resp BP Pulse Ox 99.2 F 79 20 126/73 97 05/17/18 00:33 05/17/18 00:33 05/17/18 00:33 05/17/18 00:33 05/17/18 04:35 Intake and Output: 05/17/18 05/17/18 06:59 18:59 Intake Total 1000 Balance 1000 - Medications Medications: Current Medications Acetaminophen (Tylenol 325 Mg Supp) 325 mg MA Q6 PRN PRN Reason: Fever >100.4 F Aztreonam 1 gm/ Sodium (Chloride) 100 mls @ 100 mls/hr IVPB Q8H DAVID PRN Reason: Protocol Last Admin: 05/17/18 10:19 Dose: Not Given Sodium Chloride (Sodium Chloride 0.9%) 1,000 mls @ 125 mls/hr IV .Q8H [facility] Last Admin: 05/17/18 09:00 Dose: Not Given Insulin Human Regular (Novolin R) 0 unit SC ACHS DAVID PRN Reason: Protocol Last Admin: 05/17/18 12:05 Dose: Not Given Losartan Potassium (Cozaar) 50 mg PO DAILY [facility] Last Admin: 05/17/18 10:19 Dose: Not Given Morphine Sulfate (Morphine) 1 mg IVP Q4H PRN PRN Reason: Pain, severe (8-10) Ondansetron HCl (Zofran Inj) 4 mg IVP Q6H PRN PRN Reason: Nausea/Vomiting Pantoprazole Sodium (Protonix Inj) 40 mg IVP DAILY [facility] Last Admin: 05/17/18 10:20 Dose: Not Given Pneumococcal Polyvalent Vaccine (Pneumovax 23 Vaccine) 0.5 ml IM .ONCE ONE Stop: 05/18/18 10:01 - Labs Labs: 05/17/18 07:26 05/17/18 07:26 PT 12.2 SECONDS (9.7-12.2) 05/17/18 07:26 INR 1.1 05/17/18 07:26 APTT 35 SECONDS (21-34) H 05/17/18 07:26 - Constitutional Appears: Non-toxic, No Acute Distress - Head Exam Head Exam: ATRAUMATIC, NORMAL INSPECTION, NORMOCEPHALIC - Eye Exam Eye Exam: EOMI, Normal appearance - ENT Exam ENT Exam: Mucous Membranes Moist, Normal Exam - Neck Exam Neck Exam: Full ROM, Normal Inspection - Respiratory Exam Respiratory Exam: NORMAL BREATHING PATTERN. absent: Accessory Muscle Use, Respiratory Distress - Cardiovascular Exam Cardiovascular Exam: REGULAR RHYTHM, +S1, +S2 - GI/Abdominal Exam GI & Abdominal Exam: Soft, Tenderness. absent: Distended, Guarding, Rigid Additional comments: diffuse tenderness in abdomen - Extremities Exam Extremities Exam: Full ROM, Normal Inspection - Back Exam Back Exam: NORMAL INSPECTION - Neurological Exam Neurological Exam: Alert, Awake, Oriented x3 - Psychiatric Exam Psychiatric exam: Normal Affect, Normal Mood - Skin Skin Exam: Intact, Normal Color, Warm Assessment and Plan - Assessment and Plan (Free Text) Assessment: 62 yo Female with pmhx of htn and diabetes, with gallstone pancreatitis and choledocholithiasis Plan: - Patient to stay NPO - MRCP - dilated common bile duct measuring appox 8 mm in diameter, Tiny filling defect within the mid CBD measures approx 5 mm, possibly calculus. Mild intrahepatic biliary ductal dilatation. - request for medical clearance before surgery - plan for cholecystectomy and common bile duct exploration on thursday at 12: 30pm - Continue abx and pain management as indicated Plan discussed with Dr Rolando Mayberry, PGY-1
[2018-05-17] MEDS: metroNIDAZOLE IV 500 mg/100 ml 500 MG/100 ML BAG IVPB SCH ×2 (14:59→23:00)
[2018-05-17] MEDS ORDERED: DiphenhydrAMINE 50 mg/ml Inj IVP PRN (16:20)
--- NOTE | 2018-05-17 16:57 | MRI ---
Date of service: 05/17/18 MRI abdomen without/with IV contrast MRCP Indication: Common bile duct stones Technique: Multiplanar, multi sequence magnetic resonance images of the abdomen were obtained without and with the administration of intravenous gadolinium using a multi phase abdomen protocol. Rotating maximum intensity projection images of the biliary system were generated. A total of 1006 images submitted for review Comparison: Right upper quadrant ultrasound performed 05/17/18, CT abdomen and pelvis with IV contrast performed 05/16/18 Findings: Streak and motion artifact degrades several sequences. Patient difficulty with breath hold. Probable mild hepatic steatosis. Decompressed gallbladder containing gallstones. Mild intrahepatic biliary ductal dilatation. Dilated common bile duct measures approximately 8 mm in diameter. Question abrupt distal taper. Tiny filling defect within the mid CBD measuring approximately 5 mm, possibly calculus. The pancreatic duct appears within normal limits of caliber. The spleen, pancreas, adrenal glands, and kidneys appear unremarkable. No enlarged abdominal lymph nodes are appreciated. Limited views of the inferior thorax appear unremarkable. Impression: Limited study. The gallbladder appears compressed containing gallstones. Dilated common bile duct measuring approximately 8 mm in diameter. Question abrupt distal taper ; correlate clinically for possibility of primary or secondary stricture. Tiny filling defect within the mid CBD measures approximately 5 mm, possibly calculus. Mild intrahepatic biliary ductal dilatation. Please note limitations of the study due to patient difficulty with breath hold and motion artifact. Probable mild hepatic steatosis.
[2018-05-17] MEDS ORDERED: Diphenhydramine 1% Cream (1 oz) TOP PRN (18:18)
[2018-05-17] MEDS ORDERED: Dextrose 50% SYRINGE Inj (50 ml) IV PRN (20:12)
[2018-05-17] MEDS ORDERED: Glucagon Recombinant 1 mg Inj IM PRN (20:12)
[2018-05-17] MEDS ORDERED: Dextrose 50% SYRINGE Inj (50 ml) IVP PRN (20:12)
[2018-05-17] MEDS ORDERED: DiphenhydrAMINE 50 mg/ml Inj IVP SCH (22:00)
[2018-05-18] MEDS: Aztreonam 1 GM in Sodium Chloride 0.9% 100 ML IVPB SCH ×3 (01:48→18:03)
[2018-05-18] MEDS: (Novolin R) Insulin Human Regular 100 units/ml vial SC SCH ×4 (01:53→18:03)
[2018-05-18] MEDS: Sodium Chloride 0.9% 1,000 ML IV SCH ×5 (01:54→22:29)
[2018-05-18] MEDS ORDERED: (Novolin R) Insulin Human Regular 100 units/ml vial SC SCH (06:00)
[2018-05-18] MEDS: metroNIDAZOLE IV 500 mg/100 ml 500 MG/100 ML BAG IVPB SCH ×3 (06:07→22:26)
[2018-05-18 07:39] LABS: BASO # 0.1 K/uL (0.0-0.2); BASO % 0.5 % (0.0-2.0); EOS # 0.1 K/uL (0.0-0.7); EOS % 1.3 % (0.0-4.0); HEMOGLOBIN 11.8 g/dL (11.0-16.0); LYMPH # 2.3 K/uL (1.0-4.3); LYMPH % 21.7 % (20.0-40.0); MEAN CORPUSCULAR HEMOGLOBIN 26.2 pg (27.0-31.0); MEAN CORPUSCULAR HGB CONC 34.9 g/dL (33.0-37.0); MEAN PLATELET VOLUME 8.7 fL (7.2-11.7); MONO # 0.7 K/uL (0.0-0.8); MONO % 6.7 % (0.0-10.0); NEUT # 7.3 K/uL (1.8-7.0); NEUT % 69.8 % (50.0-75.0); NRBC % 0.1 % (0.0-2.0); RBC 4.5 Mil/uL (3.80-5.20); RED CELL DISTRIBUTION WIDTH 15.4 % (11.5-14.5); WHITE BLOOD COUNT 10.5 K/uL (4.8-10.8)
[2018-05-18 07:40] LABS: ALBUMIN 3.5 g/dL (3.5-5.0); ALT/SGPT 327 U/L (9-52); AST/SGOT 130 U/L (14-36); BLOOD UREA NITROGEN 8 mg/dL (7-17); CALCIUM 9.4 mg/dl (8.6-10.4); GFR NON-AFRICAN AMERICAN > 60; HDL CHOLESTEROL 20 mg/dL (30-70)
[2018-05-18 07:50] LABS: LDL CHOLESTEROL 92 mg/dL (0-129)
--- NOTE | 2018-05-18 07:51 | CP.PCM.PN ---
<Maddie Llanes Y - Last Filed: 05/18/18 14:48> Subjective - Date & Time of Evaluation Date of Evaluation: 05/18/18 Time of Evaluation: 07:51 - Subjective Subjective: PGY-1 Medicine Progress Note for Dr. Alberto Patient seen and examined at bedside today. Patient is in no acute distress. She notes her abdominal discomfort has markedly improved; she rates it at 2/10 only when she applies pressure to her epigastrium, but otherwise has no pain. She has been passing gas throughout the day, but notes her last soft, nonbloody bowel movement was 3 days ago. She denies fevers, chills, shortness of breath, chest pain, palpitations, headache, dizziness, nausea, vomiting, or numbness/ tingling in her extremities. Objective - Vital Signs/Intake and Output Vital Signs (last 24 hours): Temp Pulse Resp BP Pulse Ox 99.2 F 80 20 133/73 94 L 05/18/18 00:00 05/18/18 00:00 05/18/18 00:00 05/18/18 00:00 05/18/18 00:00 Intake and Output: 05/18/18 05/18/18 06:59 18:59 Intake Total 1000 Balance 1000 - Medications Medications: Current Medications Acetaminophen (Tylenol 325 Mg Supp) 325 mg OH Q6 PRN PRN Reason: Fever >100.4 F Last Admin: 05/17/18 18:06 Dose: 325 mg Dextrose (Dextrose 50% Inj) 50 ml IVP ONCE PRN PRN Reason: Hypoglycemia Dextrose (Dextrose 50% Inj) 0 ml IV STAT PRN; Protocol PRN Reason: Hypoglycemia Protocol Dextrose (Glutose 15) 0 gm PO ONCE PRN; Protocol PRN Reason: Hypoglycemia Protocol Glucagon (Glucagen Diagnostic Kit) 0 mg IM STAT PRN; Protocol PRN Reason: Hypoglycemia Protocol Aztreonam 1 gm/ Sodium (Chloride) 100 mls @ 100 mls/hr IVPB Q8H [facility] PRN Reason: Protocol Last Admin: 05/18/18 01:48 Dose: 100 mls/hr Sodium Chloride (Sodium Chloride 0.9%) 1,000 mls @ 125 mls/hr IV .Q8H [facility] Last Admin: 05/18/18 01:54 Dose: Not Given Metronidazole (Flagyl) 500 mg in 100 mls @ 100 mls/hr IVPB Q8H [facility] PRN Reason: Protocol Last Admin: 05/18/18 06:07 Dose: 100 mls/hr Dextrose (Dextrose 5% In Water 1000 Ml) 1,000 mls @ 0 mls/hr IV .Q0M PRN; Protocol; Per Protocol PRN Reason: Hypoglycemia Protocol Insulin Human Regular (Novolin R) 0 unit SC Q6H [facility] PRN Reason: Protocol Last Admin: 05/18/18 06:08 Dose: Not Given Losartan Potassium (Cozaar) 50 mg PO DAILY [facility] Last Admin: 05/17/18 10:19 Dose: Not Given Metoclopramide HCl (Reglan) 5 mg IVP Q6H [facility] Last Admin: 05/18/18 06:06 Dose: 5 mg Morphine Sulfate (Morphine) 1 mg IVP Q4H PRN PRN Reason: Pain, severe (8-10) Ondansetron HCl (Zofran Inj) 4 mg IVP Q6H PRN PRN Reason: Nausea/Vomiting Pantoprazole Sodium (Protonix Inj) 40 mg IVP DAILY [facility] Last Admin: 05/17/18 10:20 Dose: Not Given Zinc Acetate/Diphenhydramine (Benadryl 1% Zinc Acetate -0.1%) 1 cre TOP DAILY PRN PRN Reason: Itching / Pruritus - Labs Labs: 05/18/18 07:17 05/18/18 07:17 PT 12.2 SECONDS (9.7-12.2) 05/17/18 07:26 INR 1.1 05/17/18 07:26 APTT 35 SECONDS (21-34) H 05/17/18 07:26 - Constitutional Appears: Well, Non-toxic, No Acute Distress - Head Exam Head Exam: ATRAUMATIC, NORMAL INSPECTION, NORMOCEPHALIC - Eye Exam Eye Exam: EOMI. absent: Conjunctival injection, Scleral icterus - Neck Exam Neck Exam: Full ROM - Respiratory Exam Respiratory Exam: Clear to Ausculation Bilateral. absent: Rales, Rhonchi, Wheezes - Cardiovascular Exam Cardiovascular Exam: RRR, +S1, +S2. absent: Gallop, Rubs, Murmur - GI/Abdominal Exam GI & Abdominal Exam: Soft, Tenderness, Normal Bowel Sounds. absent: Distended Additional comments: normotympanic, no tenderness on palpation to LUQ, mild tenderness to deep palpation in the epigastrium and RUQ, positive Lockhart's sign, McBurney's point negative - Extremities Exam Extremities Exam: Full ROM. absent: Pedal Edema Additional comments: radial, DP, PT pulses palpable IV access in L arm - Back Exam Back Exam: absent: CVA tenderness (L), CVA tenderness (R) - Neurological Exam Neurological Exam: Alert, Awake, CN II-XII Intact, Normal Gait, Oriented x3 - Psychiatric Exam Psychiatric exam: Normal Affect, Normal Mood - Skin Skin Exam: Dry, Intact, Warm Additional comments: 1 cm x 1 cm area of edema and erythema to the right first digit lateral to the nail border Assessment and Plan - Assessment and Plan (Free Text) Assessment: 62 year old female with a PMHx of HTN and DM admitted for choledocholithiasis and pancreatitis s/p ERCP with stent and MCRP. Scheduled for CBD exploration possible cholecystectomy tomorrow, 05/19/2018. Plan: 1) Choledocholithiasis - CT abdomen/pelvis (05/16/2018) - Cholelithiasis with a contracted distorted gallbladder. Slightly thickened indurated gallbladder wall with some infiltration in the adjacent mesenteries suggesting acute cholecystitis. There is choledocholithiasis with dilatation of the CBD and intrahepatic biliary ductal dilatation - CXR (05/17/2018) - Poor inspiration with low lung volumes, crowded bronchovascular markings and minor bibasilar atelectasis - Abdominal Ultrasound (05/17/2018) - Mild hepatomegaly. Diffuse increased echogenicity in the liver may reflect hepatic steatosis however parenchymal infectious/inflammatory etiologies cannot be excluded. Cholelithiasis, mild diffuse dilation of the common bile duct without evidence for choledocholithiasis. - ERCP (05/17/18) - 1 ml omnipaque biliary stent placed - EKG (05/17/2018) - Normal Sinus Rhythm at 78, normal axis deviation, normal R wave progression, no acute ST Twave changes - MRCP (05/17/2018) - dilated common bile duct measuring approximately 8 mm in diameter. Tiny filling defect within the mid CBD measuring approximately 5 mm; possibly calculus. Mild intrahepatic biliary duct dilation. - PA and Lateral CXR (05/18/18) - no active disease - Labs reviewed: - Lipase - 1739 --> 2372 - Amylase - 275 - AST - 188 --> 187 --> 130 - ALT - 455 --> 423 --> 327 - T Bili - 2.3 --> 3.9 - WBC - 21.8 --> 12.7 --> 10.5 - Alk Phos - 364 --> 333 --> 338 - UA/Urine Tox - Negative - AFP - 3.3 (WNL), CA 19-9 - 159 (elevated), CEA - 1.8 (WNL) - PT - 12.2 --> 12.9, INR - 1.1 --> 1.1, PTT - 35 --> 36 - A1C - 8.8 (elevated) sugars have been well controlled this admission on ISS moderate - TG - 153 (elevated), Total Chol - 148 (WNL), LDL - 92 (WNL), HDL - 20 (low) - Surgery consulted (Dr. Marshall) - help appreciated - GI consult placed to Dr. López (Dr. Kirk pimentel) - help appreciated - Surgery will do a CBD exploration with possible cholecystectomy on 05/19/2018 - Patient will remain NPO for surgery tomorrow - Patient's HTN and DM is optimized; BP today 133/73; Blood sugar improved from 355 OA to 191 today - EKG and CXR reviewed: patient is medically optimized and cleared for surgery tomorrow. - Pain controlled with Morphine 4 mg q4h PRN - Nausea well controlled with Zofran 4 mg IVP q4h PRN, Reglan 5mg IVP q6h prn - Benadryl 25mg IVP daily prn for itching - Tylenol 650 mg rectally prn ordered for F temp > 100.4 - IV NS at 125 mls/hr - Leukocytosis treated with Aztreonam 1 gm IVPB qd and Flagyl 500 mg IVPB q8h 2) Pancreatitis, acute - likely secondary to cholelithiasis - lipase OA 1739 - Patient is NPO for bowel rest - Cont NS@125 - Zofran and Reglan prn - Morphine prn 3) Constipation - Dulcolax 10mg OH once ordered 4) Hx of HTN - Home ASA 81mg po daily held d/t NPO status - Home Losartan 50 mg po daily held d/t NPO status - Monitor BP 5) Hx of DM - Blood sugar: 355 --> 280 --> 191 - Accucheck q6h - Insulin sliding scale - moderate ordered - Metformin held d/t NPO status - Atorvastatin 20 mg po daily held d/t NPO status 6) Hyperlipidemia - Lipid panel - TG - 153 (elevated) - Total Chol - 148 (WNL) - LDL - 92 (WNL) - HDL - 20 (low) - ASCVD Risk - 15.8%; at time of discharge patient will be started on high dose statin d/w Dr. Remy Llanes PGY-1 <Jennifer Alberto V - Last Filed: 05/18/18 20:27> Objective - Vital Signs/Intake and Output Vital Signs (last 24 hours): Temp Pulse Resp BP Pulse Ox 100.0 F H 72 20 176/71 H 93 L 05/18/18 15:05 05/18/18 15:05 05/18/18 15:05 05/18/18 15:05 05/18/18 15:05 Intake and Output: 05/18/18 05/18/18 06:59 18:59 Intake Total 1000 Balance 1000 - Medications Medications: Current Medications Acetaminophen (Tylenol 650 Mg Supp) 650 mg OH Q6 PRN PRN Reason: Fever >100.4 F Dextrose (Dextrose 50% Inj) 50 ml IVP ONCE PRN PRN Reason: Hypoglycemia Dextrose (Dextrose 50% Inj) 0 ml IV STAT PRN; Protocol PRN Reason: Hypoglycemia Protocol Dextrose (Glutose 15) 0 gm PO ONCE PRN; Protocol PRN Reason: Hypoglycemia Protocol Glucagon (Glucagen Diagnostic Kit) 0 mg IM STAT PRN; Protocol PRN Reason: Hypoglycemia Protocol Aztreonam 1 gm/ Sodium (Chloride) 100 mls @ 100 mls/hr IVPB Q8H [facility]ID PRN Reason: Protocol Last Admin: 05/18/18 10:00 Dose: 100 mls/hr Sodium Chloride (Sodium Chloride 0.9%) 1,000 mls @ 125 mls/hr IV .Q8H DAVID Last Admin: 05/18/18 16:52 Dose: Not Given Metronidazole (Flagyl) 500 mg in 100 mls @ 100 mls/hr IVPB Q8H [facility] PRN Reason: Protocol Last Admin: 05/18/18 14:03 Dose: 100 mls/hr Dextrose (Dextrose 5% In Water 1000 Ml) 1,000 mls @ 0 mls/hr IV .Q0M PRN; Protocol; Per Protocol PRN Reason: Hypoglycemia Protocol Insulin Human Regular (Novolin R) 0 unit SC Q6H [facility] PRN Reason: Protocol Last Admin: 05/18/18 13:22 Dose: Not Given Losartan Potassium (Cozaar) 50 mg PO DAILY [facility] Last Admin: 05/17/18 10:19 Dose: Not Given Metoclopramide HCl (Reglan) 5 mg IVP Q6H [facility] Last Admin: 05/18/18 14:03 Dose: 5 mg Morphine Sulfate (Morphine) 1 mg IVP Q4H PRN PRN Reason: Pain, severe (8-10) Ondansetron HCl (Zofran Inj) 4 mg IVP Q6H PRN PRN Reason: Nausea/Vomiting Pantoprazole Sodium (Protonix Inj) 40 mg IVP DAILY [facility] Last Admin: 05/18/18 09:59 Dose: 40 mg Zinc Acetate/Diphenhydramine (Benadryl 1% Zinc Acetate -0.1%) 1 cre TOP DAILY PRN PRN Reason: Itching / Pruritus - Labs Labs: 05/18/18 07:17 05/18/18 07:17 PT 12.9 SECONDS (9.7-12.2) H 05/18/18 07:17 INR 1.2 05/18/18 07:17 APTT 36 SECONDS (21-34) H 05/18/18 07:17 Attending/Attestation - Attestation I have personally seen and examined this patient.: Yes I have fully participated in the care of the patient.: Yes I have reviewed all pertinent clinical information, including history, physical exam and plan: Yes Notes (Text): Patient seen, examined, and case discussed with day-time resident. Patient reports abdominal pain over the right upper and epigastric pain about 2- 3/10 on scale. She denies nausea, denies vomitting. She reports she and her family present at bedside and spoken with the surgery team prior to our arrival and understands the risks and benefits for procedure tomorrow. EKG: NSR, Chest xray: no active disease. Patient is medium risk individual given age, hypertension, and diabetes and medically optimized for noncardiac surgery. Surgery and anesthesia to discuss risk and benefits of procedure prior to OR. preoperative/intraoperative/ postoperative management per surgery Assessment/Plan 1) Choledocholithiasis Cholelithiasis Assessment/Plan * GI (Dr. Turcios covering Dr. López who was personnel clerks supervisor 05/16/18) and Dr. Bradley ( covering Dr. Turcios given holiday) * General surgery (Dr. Marshall) on case * going for surgery with exploration of the CBD 05/19/18 * preoperative/intraoperative/postoperative per surgery * Patient underwent ERCP with stent, recommended for surgery given gallstones, cbd dilation, unable to visualize cyst duct * CT abdomen/pelvis (05/16/2018) - Cholelithiasis with a contracted distorted gallbladder. Slightly thickened indurated gallbladder wall with some infiltration in the adjacent mesenteries suggesting acute cholecystitis. There is choledocholithiasis with dilatation of the CBD and intrahepatic biliary ductal dilatation * CXR (05/17/2018) - Poor inspiration with low lung volumes, crowded bronchovascular markings and minor bibasilar atelectasis * Abdominal Ultrasound (05/17/2018) - Mild hepatomegaly. Diffuse increased echogenicity in the liver may reflect hepatic steatosis however parenchymal infectious/inflammatory etiologies cannot be excluded. Cholelithiasis, mild diffuse dilation of the common bile duct without evidence for choledocholithiasis. * ERCP (05/17/18) - biliary stent placed. full report pending * MRCP (05/17/18): gallbladder appears compressed containing gallstones. Dilated common bile duct measuring approximately 8mm in diameter. Abrupt distal taper. tiny filling defect within the mid CBD measures ~5mm. Mild intrahepatic biliary fuctal dilatation. * EKG (05/17/2018): ordered * Elevated bilirubin, and transaminitis * Pain PRN: Morphine 4 mg q4h PRN * Nausea PRN: well controlled with Zofran 4 mg IVP q4h PRN, Reglan 5mg IVP q6h prn * Tylenol 650 mg rectally prn ordered for F temp > 100.4 * IV NS at 125 mls/hr * IV abx:Aztreonam 1 gm IVPB qd and Flagyl 500 mg IVPB q8h 2) Pancreatitis, Gallstone Assessment/Plan * likely secondary to cholelithiasis * lipase OA 1739 * Patient is NPO for bowel rest * Cont NS@125cc/hr * GI and general surgery on board 3) Hx of HTN Assessment/Plan * Home ASA 81mg po daily held d/t NPO status * Home Losartan 50 mg po daily held d/t NPO status * Monitor BP 4) Hx of DM Assessment/Plan * a1c: 8.8 * Lipid panel: T, chol: 148, LDL: 92, HDL: 20 * Accucheck q6h * Insulin sliding scale - moderate ordered * Metformin held d/t NPO status * Atorvastatin 20 mg po daily held d/t NPO status * hypoglycemic protocol 5) Transaminitis Assessment/Plan * monitor * downtrending * Going for OR for gallbladder stones and CBD stone * elevated bilirubin 6) Prophylaxis * SCDs * Protonix 40 mg IV qd * CI chemical VTE Disposition: Going to OR tomorrow with surgery. Patient is medically optimized. Surgery and anesthesia discuss risk and benefits of procedure prior to OR respectively. preoperative/intraoperative/postoperative management per surgery.
[2018-05-18 08:02] LABS: INR 1.2; PROTHROMBIN TIME 12.9 SECONDS (9.7-12.2)
--- NOTE | 2018-05-18 09:00 | CP.PCM.PN ---
Subjective - Date & Time of Evaluation Date of Evaluation: 05/18/18 Time of Evaluation: 06:40 - Subjective Subjective: PGY-1 general surgery progress note for Dr Marshall Patient is seen and examined at bedside. Patient reports no acute events overnight. Patient admits to some stomach pain. Patient denies fever, chills, nausea or vomiting. Patient is currently NPO and will be going for CBD exploration and cholecystectomy Objective - Vital Signs/Intake and Output Vital Signs (last 24 hours): Temp Pulse Resp BP Pulse Ox 98.5 F 68 20 155/75 H 96 05/18/18 08:19 05/18/18 08:19 05/18/18 08:19 05/18/18 08:19 05/18/18 08:19 Intake and Output: 05/18/18 05/18/18 06:59 18:59 Intake Total 1000 Balance 1000 - Medications Medications: Current Medications Acetaminophen (Tylenol 325 Mg Supp) 325 mg [place] Q6 PRN PRN Reason: Fever >100.4 F Last Admin: 05/17/18 18:06 Dose: 325 mg Dextrose (Dextrose 50% Inj) 50 ml IVP ONCE PRN PRN Reason: Hypoglycemia Dextrose (Dextrose 50% Inj) 0 ml IV STAT PRN; Protocol PRN Reason: Hypoglycemia Protocol Dextrose (Glutose 15) 0 gm PO ONCE PRN; Protocol PRN Reason: Hypoglycemia Protocol Glucagon (Glucagen Diagnostic Kit) 0 mg IM STAT PRN; Protocol PRN Reason: Hypoglycemia Protocol Aztreonam 1 gm/ Sodium (Chloride) 100 mls @ 100 mls/hr IVPB Q8H [facility] PRN Reason: Protocol Last Admin: 05/18/18 01:48 Dose: 100 mls/hr Sodium Chloride (Sodium Chloride 0.9%) 1,000 mls @ 125 mls/hr IV .Q8H [facility] Last Admin: 05/18/18 08:34 Dose: Not Given Metronidazole (Flagyl) 500 mg in 100 mls @ 100 mls/hr IVPB Q8H [facility] PRN Reason: Protocol Last Admin: 05/18/18 06:07 Dose: 100 mls/hr Dextrose (Dextrose 5% In Water 1000 Ml) 1,000 mls @ 0 mls/hr IV .Q0M PRN; Protocol; Per Protocol PRN Reason: Hypoglycemia Protocol Insulin Human Regular (Novolin R) 0 unit SC Q6H [facility] PRN Reason: Protocol Last Admin: 05/18/18 06:08 Dose: Not Given Losartan Potassium (Cozaar) 50 mg PO DAILY [facility] Last Admin: 05/17/18 10:19 Dose: Not Given Metoclopramide HCl (Reglan) 5 mg IVP Q6H [facility] Last Admin: 05/18/18 06:06 Dose: 5 mg Morphine Sulfate (Morphine) 1 mg IVP Q4H PRN PRN Reason: Pain, severe (8-10) Ondansetron HCl (Zofran Inj) 4 mg IVP Q6H PRN PRN Reason: Nausea/Vomiting Pantoprazole Sodium (Protonix Inj) 40 mg IVP DAILY [facility] Last Admin: 05/17/18 10:20 Dose: Not Given Zinc Acetate/Diphenhydramine (Benadryl 1% Zinc Acetate -0.1%) 1 cre TOP DAILY PRN PRN Reason: Itching / Pruritus - Labs Labs: 05/18/18 07:17 05/18/18 07:17 PT 12.9 SECONDS (9.7-12.2) H 05/18/18 07:17 INR 1.2 05/18/18 07:17 APTT 36 SECONDS (21-34) H 05/18/18 07:17 - Constitutional Appears: Non-toxic, No Acute Distress - Head Exam Head Exam: ATRAUMATIC, NORMAL INSPECTION, NORMOCEPHALIC - Eye Exam Eye Exam: EOMI, Normal appearance - ENT Exam ENT Exam: Mucous Membranes Moist, Normal Exam - Neck Exam Neck Exam: Full ROM - Respiratory Exam Respiratory Exam: NORMAL BREATHING PATTERN. absent: Accessory Muscle Use, Respiratory Distress - GI/Abdominal Exam GI & Abdominal Exam: Soft Additional comments: mild diffuse tenderness - Extremities Exam Extremities Exam: Full ROM - Back Exam Back Exam: NORMAL INSPECTION - Neurological Exam Neurological Exam: Alert, Awake, Oriented x3 - Psychiatric Exam Psychiatric exam: Normal Affect, Normal Mood - Skin Skin Exam: Normal Color, Warm Assessment and Plan - Assessment and Plan (Free Text) Assessment: 62 yo Female with pmhx of htn and diabetes, with gallstone pancreatitis and choledocholithiasis Plan: Continue NPO plan for CBD exploration and cholecystectoy tomorrow continue pain management and abx as indicated Plan discussed with Rolando Mayberry, PGY-1
--- NOTE | 2018-05-18 09:58 | RAD ---
Date of service: 05/18/2018 HISTORY: preadmission COMPARISON: Comparison chest dated 05/17/2018 FINDINGS: LUNGS: Poor inspiration with low lung volumes, crowded bronchovascular markings and mild bibasilar atelectasis. PLEURA: No significant pleural effusion identified, no pneumothorax apparent. CARDIOVASCULAR: Heart appears borderline/mildly enlarged. OSSEOUS STRUCTURES: No significant abnormalities. VISUALIZED UPPER ABDOMEN: Normal. OTHER FINDINGS: None. IMPRESSION: Poor inspiration with low lung volumes, crowded bronchovascular markings and mild bibasilar atelectasis.
[2018-05-18] MEDS ORDERED: Pneumococcal 23-Valent Vaccine IM ONE (10:00)
[2018-05-18 12:41] LABS: LIPASE 279 U/L (23-300)
--- NOTE | 2018-05-18 13:06 | RAD ---
PROCEDURE: HISTORY: As Above COMPARISON: None TECHNIQUE: Total fluoroscopic time utilized during the procedure: 191.2 seconds. Total dose 60.12 mGy FINDINGS: Submitted images from the current procedure: 8 Please refer to the physician's notes performing the procedure. IMPRESSION: Less than 1 hour fluoroscopic time utilized during performance of the procedure
--- NOTE | 2018-05-18 13:17 | RAD ---
Date of service: 05/18/2018 HISTORY: surgery clearance, epigastric pain COMPARISON: No prior. TECHNIQUE: Chest PA and lateral FINDINGS: LUNGS: No active pulmonary disease. PLEURA: No significant pleural effusion identified. No pneumothorax apparent. CARDIOVASCULAR: Normal. OSSEOUS STRUCTURES: No significant abnormalities. VISUALIZED UPPER ABDOMEN: Normal. OTHER FINDINGS: None. IMPRESSION: No active disease.
--- NOTE | 2018-05-18 15:46 | PN ---
DATE: 05/18/2018 LOCATION: 360, bed B. SUBJECTIVE: This is a 62-year-old female seen and examined in rounds without reported significant clinical changes, but less abdominal pain. No chest pain, palpitation, chills or fever. No nausea or vomiting. The entire chart is reviewed including but not limited to the most recent lab and radiology study results, current and the previous medication list, current and the previous medical events, and today's lab showed white blood cells of 10.5 with low hematocrit 33.8. Blood glucose level 185 with total bilirubin 4.9, increased with AST 130, ALT 327 with alkaline phosphatase triglyceride of 153 with elevated CA 19-9 to 159, but normal CEA and alpha fetoprotein, lipase and amylase level today, results still pending. MRCP report is seen. PHYSICAL EXAMINATION: GENERAL: A 62-year-old female. VITAL SIGNS: Afebrile with pulse of 66, respiratory rate 20 to 22, blood pressure 150/72. HEENT: Showed pale, dry oral mucous membrane. Bilateral icteric sclerae. LUNGS: Few scattered crepitation. Decreased air entry at bases. HEART: Positive S1 and S2 with increased rate. ABDOMEN: Soft with mild generalized tenderness. There is no mass or organomegaly. No rebound tenderness or guarding. EXTREMITIES: Without edema, clubbing, or cyanosis. NEUROLOGIC: No reported new neurological deficits, sensory or motor. IMPRESSION: 1. Status post endoscopic retrograde cholangiopancreatography with biliary stent insertion. 2. Jaundice, most likely obstructive due to common bile duct stones. 3. Cholelithiasis by radiology study results with abnormal liver function test. 4. Poorly-controlled diabetes mellitus. 5. Known history of hyperlipidemia and hypertension. SUGGESTIONS: 1. Continue current management. 2. The patient is for OR tomorrow as scheduled for potential cholelithiasis and common bile duct exploration. We will follow up closely with you. Melvin Ferris MD
[2018-05-19] MEDS: Sodium Chloride 0.9% 1,000 ML IV SCH ×4 (00:20→22:51)
[2018-05-19] MEDS: (Novolin R) Insulin Human Regular 100 units/ml vial SC SCH ×4 (00:58→17:50)
[2018-05-19] MEDS: Aztreonam 1 GM in Sodium Chloride 0.9% 100 ML IVPB SCH ×3 (02:18→18:55)
[2018-05-19] MEDS: metroNIDAZOLE IV 500 mg/100 ml 500 MG/100 ML BAG IVPB SCH ×3 (06:12→22:45)
[2018-05-19 07:01] LABS: BASO # 0.1 K/uL (0.0-0.2); BASO % 0.5 % (0.0-2.0); EOS # 0.1 K/uL (0.0-0.7); EOS % 1.2 % (0.0-4.0); MEAN CELL VOLUME 74.8 fL (81.0-99.0); MEAN CORPUSCULAR HEMOGLOBIN 26.2 pg (27.0-31.0); MEAN PLATELET VOLUME 8.4 fL (7.2-11.7); MONO # 0.9 K/uL (0.0-0.8); MONO % 7.4 % (0.0-10.0); NEUT # 8.7 K/uL (1.8-7.0); NEUT % 73.9 % (50.0-75.0); NRBC % 0.1 % (0.0-2.0); RBC 4.58 Mil/uL (3.80-5.20); RED CELL DISTRIBUTION WIDTH 15.5 % (11.5-14.5); WHITE BLOOD COUNT 11.8 K/uL (4.8-10.8)
--- NOTE | 2018-05-19 07:18 | CP.PCM.PN ---
<LlanesPaulinaMaddie Y - Last Filed: 05/19/18 16:26> Subjective - Date & Time of Evaluation Date of Evaluation: 05/19/18 Time of Evaluation: 07:00 - Subjective Subjective: PGY-1 Medicine Progress Note for Dr. Alberto Patient seen and examined at bedside today. Patient is in no acute distress. She denies abdominal pain unless she applies significant pressure to the right upper and epigastric regions of her abdomen, at which point she rates that pain at 2/10. She states she did have a small normal bowel movement yesterday for the first time in 3 days, after being given Dulcolax. She denies fevers, chills , chest pain, palpitations, headache, dizziness, nausea, vomiting, changes in vision or ringing in her ears, urinary frequency or urgency, dysuria or diarrhea. She has not taken anything by mouth in 4 days. Objective - Vital Signs/Intake and Output Vital Signs (last 24 hours): Temp Pulse Resp BP Pulse Ox 99.1 F 75 20 161/77 H 94 L 05/19/18 00:00 05/19/18 00:00 05/19/18 00:00 05/19/18 00:00 05/19/18 00:00 Intake and Output: 05/19/18 05/19/18 06:59 18:59 Intake Total 950 1000 Balance 950 1000 - Medications Medications: Current Medications Acetaminophen (Tylenol 650 Mg Supp) 650 mg ID Q6 PRN PRN Reason: Fever >100.4 F Dextrose (Dextrose 50% Inj) 50 ml IVP ONCE PRN PRN Reason: Hypoglycemia Dextrose (Dextrose 50% Inj) 0 ml IV STAT PRN; Protocol PRN Reason: Hypoglycemia Protocol Dextrose (Glutose 15) 0 gm PO ONCE PRN; Protocol PRN Reason: Hypoglycemia Protocol Glucagon (Glucagen Diagnostic Kit) 0 mg IM STAT PRN; Protocol PRN Reason: Hypoglycemia Protocol Aztreonam 1 gm/ Sodium (Chloride) 100 mls @ 100 mls/hr IVPB Q8H [facility] PRN Reason: Protocol Last Admin: 05/19/18 02:18 Dose: 100 mls/hr Sodium Chloride (Sodium Chloride 0.9%) 1,000 mls @ 125 mls/hr IV .Q8H [facility] Last Admin: 05/19/18 00:20 Dose: 125 mls/hr Metronidazole (Flagyl) 500 mg in 100 mls @ 100 mls/hr IVPB Q8H [facility] PRN Reason: Protocol Last Admin: 05/19/18 06:12 Dose: 100 mls/hr Dextrose (Dextrose 5% In Water 1000 Ml) 1,000 mls @ 0 mls/hr IV .Q0M PRN; Protocol; Per Protocol PRN Reason: Hypoglycemia Protocol Insulin Human Regular (Novolin R) 0 unit SC Q6H [facility] PRN Reason: Protocol Last Admin: 05/19/18 00:58 Dose: Not Given Losartan Potassium (Cozaar) 50 mg PO DAILY [facility] Last Admin: 05/17/18 10:19 Dose: Not Given Metoclopramide HCl (Reglan) 5 mg IVP Q6H [facility] Last Admin: 05/19/18 06:14 Dose: 5 mg Morphine Sulfate (Morphine) 1 mg IVP Q4H PRN PRN Reason: Pain, severe (8-10) Ondansetron HCl (Zofran Inj) 4 mg IVP Q6H PRN PRN Reason: Nausea/Vomiting Pantoprazole Sodium (Protonix Inj) 40 mg IVP DAILY [facility] Last Admin: 05/18/18 09:59 Dose: 40 mg Zinc Acetate/Diphenhydramine (Benadryl 1% Zinc Acetate -0.1%) 1 cre TOP DAILY PRN PRN Reason: Itching / Pruritus - Labs Labs: 05/19/18 06:55 05/18/18 07:17 PT 12.9 SECONDS (9.7-12.2) H 05/18/18 07:17 INR 1.2 05/18/18 07:17 APTT 36 SECONDS (21-34) H 05/18/18 07:17 - Constitutional Appears: Well, Non-toxic, No Acute Distress - Head Exam Head Exam: ATRAUMATIC, NORMAL INSPECTION, NORMOCEPHALIC - Eye Exam Eye Exam: EOMI, Normal appearance. absent: Conjunctival injection - ENT Exam ENT Exam: Mucous Membranes Moist, Normal Exam - Neck Exam Neck Exam: Full ROM, Normal Inspection - Respiratory Exam Respiratory Exam: Clear to Ausculation Bilateral, NORMAL BREATHING PATTERN. absent: Rales, Rhonchi, Wheezes - Cardiovascular Exam Cardiovascular Exam: RRR, +S1, +S2. absent: Gallop, JVD, Rubs, Murmur - GI/Abdominal Exam GI & Abdominal Exam: Soft, Normal Bowel Sounds. absent: Distended, Guarding, Pulsatile Mass Additional comments: Mild RUQ and epigastric tenderness to deep palpation, Positive Lockhart's sign, Negative McBurney's point, no LUQ tenderness - Extremities Exam Extremities Exam: Full ROM, Normal Capillary Refill, Normal Inspection Additional comments: DP and PT, radial, pulses palpable bilaterally - Back Exam Back Exam: absent: CVA tenderness (L), CVA tenderness (R) - Neurological Exam Neurological Exam: Alert, Awake, Oriented x3 - Psychiatric Exam Psychiatric exam: Normal Affect, Normal Mood - Skin Skin Exam: Dry, Intact, Normal Color, Warm Additional comments: 1 cm x 1 cm area of edema and erythema to the right first digit lateral to the nail border Assessment and Plan - Assessment and Plan (Free Text) Assessment: 62 year old female with a PMHx of HTN and DM admitted for choledocholithiasis and pancreatitis s/p ERCP with stent. Scheduled for surgery today, 05/19/2018, for CBD exploration possible cholecystectomy. Plan: 1) Choledocholithiasis - CT abdomen/pelvis (05/16/2018) - Cholelithiasis with a contracted distorted gallbladder. Slightly thickened indurated gallbladder wall with some infiltration in the adjacent mesenteries suggesting acute cholecystitis. There is choledocholithiasis with dilatation of the CBD and intrahepatic biliary ductal dilatation - CXR (05/17/2018) - Poor inspiration with low lung volumes, crowded bronchovascular markings and minor bibasilar atelectasis - Abdominal Ultrasound (05/17/2018) - Mild hepatomegaly. Diffuse increased echogenicity in the liver may reflect hepatic steatosis however parenchymal infectious/inflammatory etiologies cannot be excluded. Cholelithiasis, mild diffuse dilation of the common bile duct without evidence for choledocholithiasis. - ERCP (05/17/18) - 1 ml omnipaque biliary stent placed - EKG (05/17/2018) - Normal Sinus Rhythm at 78, normal axis deviation, normal R wave progression, no acute ST Twave changes - MRCP (05/17/2018) - dilated common bile duct measuring approximately 8 mm in diameter. Tiny filling defect within the mid CBD measuring approximately 5 mm; possibly calculus. Mild intrahepatic biliary duct dilation. - PA and Lateral CXR (05/18/18) - no active disease - Labs reviewed: - Lipase - 1739 (OA) --> 2372 - Amylase - 275 (OA) - AST - 188 --> 187 --> 130 --> 74 - ALT - 455 --> 423 --> 327 --> 241 - T Bili - 2.3 --> 3.9 --> 2.5 - WBC - 21.8 --> 12.7 --> 10.5 --> 11.8 - Alk Phos - 364 --> 333 --> 338 --> 350 - UA/Urine Tox - Negative - AFP - 3.3 (WNL), CA 19-9 - 159 (elevated), CEA - 1.8 (WNL) - PT - 12.2 --> 12.9, INR - 1.1 --> 1.1, PTT - 35 --> 36 - A1C - 8.8 (elevated) sugars have been well controlled this admission on ISS moderate - TG - 153 (elevated), Total Chol - 148 (WNL), LDL - 92 (WNL), HDL - 20 (low) - Surgery consulted (Dr. Marshall) - help appreciated - GI consult placed to Dr. López (Dr. Kirk pimentel) - help appreciated - Surgery will do a CBD exploration with possible cholecystectomy on 05/19/2018 - Patient NPO for surgery - Patient's HTN and DM is optimized - EKG and CXR reviewed: patient is medically optimized and cleared for surgery - Pain controlled with Morphine 4 mg q4h PRN - Nausea well controlled with Zofran 4 mg IVP q4h PRN, Reglan 5mg IVP q6h prn - Benadryl 25mg IVP daily prn for itching - Tylenol 650 mg rectally prn ordered for F temp > 100.4 - IV NS at 125 mls/hr - Leukocytosis treated with Aztreonam 1 gm IVPB qd and Flagyl 500 mg IVPB q8h 2) Pancreatitis, acute - likely secondary to cholelithiasis - lipase OA 1739 - Patient is NPO for bowel rest - Cont NS@125 - Zofran and Reglan prn - Morphine prn 3) Constipation - Dulcolax 10mg ID once ordered 4) Hx of HTN - Home ASA 81mg po daily held d/t NPO status - Home Losartan 50 mg po daily held d/t NPO status - Monitor BP 5) Hx of DM - Blood sugar: 355 --> 280 --> 191 --> 159 - Accucheck q6h - Insulin sliding scale - moderate ordered - Metformin held d/t NPO status - Atorvastatin 20 mg po daily held d/t NPO status 6) Hyperlipidemia - Lipid panel - TG - 153 (elevated) - Total Chol - 148 (WNL) - LDL - 92 (WNL) - HDL - 20 (low) - ASCVD Risk - 15.8%; at time of discharge patient will be started on high dose statin 7) Prophylaxis * SCDs * Protonix 40 mg IV qd * CI chemical VTE d/w Dr. Remy Llanes PGY-1 <Jennifer Alberto V - Last Filed: 05/20/18 07:13> Objective - Vital Signs/Intake and Output Vital Signs (last 24 hours): Temp Pulse Resp BP Pulse Ox 98.9 F 86 20 151/75 H 94 L 05/20/18 00:00 05/20/18 00:00 05/20/18 00:00 05/20/18 00:00 05/20/18 00:00 Intake and Output: 05/20/18 05/20/18 06:59 18:59 Intake Total 650 Output Total 100 Balance 550 - Medications Medications: Current Medications Acetaminophen (Tylenol 650 Mg Supp) 650 mg ID Q6 PRN PRN Reason: Fever >100.4 F Dextrose (Dextrose 50% Inj) 50 ml IVP ONCE PRN PRN Reason: Hypoglycemia Dextrose (Dextrose 50% Inj) 0 ml IV STAT PRN; Protocol PRN Reason: Hypoglycemia Protocol Dextrose (Glutose 15) 0 gm PO ONCE PRN; Protocol PRN Reason: Hypoglycemia Protocol Enoxaparin Sodium (Lovenox) 40 mg SC DAILY [facility]ID Glucagon (Glucagen Diagnostic Kit) 0 mg IM STAT PRN; Protocol PRN Reason: Hypoglycemia Protocol Hydromorphone HCl (Dilaudid) 0.5 mg IVP Q3H PRN PRN Reason: Pain, moderate (4-7) Aztreonam 1 gm/ Sodium (Chloride) 100 mls @ 100 mls/hr IVPB Q8H [facility] PRN Reason: Protocol Last Admin: 05/20/18 01:58 Dose: 100 mls/hr Metronidazole (Flagyl) 500 mg in 100 mls @ 100 mls/hr IVPB Q8H [facility] PRN Reason: Protocol Last Admin: 05/20/18 07:06 Dose: 100 mls/hr Dextrose (Dextrose 5% In Water 1000 Ml) 1,000 mls @ 0 mls/hr IV .Q0M PRN; Protocol; Per Protocol PRN Reason: Hypoglycemia Protocol Sodium Chloride (Sodium Chloride 0.9%) 1,000 mls @ 150 mls/hr IV .Q6H40M [facility] Last Admin: 05/20/18 05:28 Dose: Not Given Insulin Human Regular (Novolin R) 0 unit SC Q6H [facility] PRN Reason: Protocol Last Admin: 05/20/18 06:40 Dose: 4 units Losartan Potassium (Cozaar) 50 mg PO DAILY [facility] Last Admin: 05/17/18 10:19 Dose: Not Given Ondansetron HCl (Zofran Inj) 4 mg IVP Q6H PRN PRN Reason: Nausea/Vomiting Zinc Acetate/Diphenhydramine (Benadryl 1% Zinc Acetate -0.1%) 1 cre TOP DAILY PRN PRN Reason: Itching / Pruritus - Labs Labs: 05/19/18 19:23 05/19/18 19:23 PT 12.9 SECONDS (9.7-12.2) H 05/18/18 07:17 INR 1.2 05/18/18 07:17 APTT 36 SECONDS (21-34) H 05/18/18 07:17 Attending/Attestation - Attestation I have personally seen and examined this patient.: Yes I have fully participated in the care of the patient.: Yes I have reviewed all pertinent clinical information, including history, physical exam and plan: Yes Notes (Text): This is a late computer entry for 05/19/2018. Patient seen, examined, case discussed with medical device sales representative. Patient seen in the morning with family present at bedside. Patient reports abdominal pain is improved. Patient to undergo a cholecystectomy with intraoperative CBD exploration. In surgical course will determine how many further days within the hospital. Discussed with surgical scrub technician Km after procedure to monitor for pancreatitis post procedure. We will continue to monitor. EKG: NSR, Chest xray: no active disease. Patient is medium risk individual given age, hypertension, and diabetes and medically optimized for noncardiac surgery. Surgery and anesthesia to discuss risk and benefits of procedure prior to OR. preoperative/intraoperative/ postoperative management per surgery. Please note as clarification to avoid confusion. Dr. Turcios assumed GI on case has DR. Bradley was covering. Assessment/Plan 1) Choledocholithiasis Cholelithiasis Assessment/Plan * GI (Dr. Turcios covering Dr. López who was fabrication inspector 05/16/18) and Dr. Bradley ( covering Dr. Turcios given holiday) * General surgery (Dr. Marshall) on case * going for surgery with exploration of the CBD 05/19/18 * preoperative/intraoperative/postoperative per surgery * Patient underwent ERCP with stent, recommended for surgery given gallstones, cbd dilation, unable to visualize cyst duct * CT abdomen/pelvis (05/16/2018) - Cholelithiasis with a contracted distorted gallbladder. Slightly thickened indurated gallbladder wall with some infiltration in the adjacent mesenteries suggesting acute cholecystitis. There is choledocholithiasis with dilatation of the CBD and intrahepatic biliary ductal dilatation * CXR (05/17/2018) - Poor inspiration with low lung volumes, crowded bronchovascular markings and minor bibasilar atelectasis * Abdominal Ultrasound (05/17/2018) - Mild hepatomegaly. Diffuse increased echogenicity in the liver may reflect hepatic steatosis however parenchymal infectious/inflammatory etiologies cannot be excluded. Cholelithiasis, mild diffuse dilation of the common bile duct without evidence for choledocholithiasis. * ERCP (05/17/18) - biliary stent placed. full report pending * MRCP (05/17/18): gallbladder appears compressed containing gallstones. Dilated common bile duct measuring approximately 8mm in diameter. Abrupt distal taper. tiny filling defect within the mid CBD measures ~5mm. Mild intrahepatic biliary fuctal dilatation. * EKG (05/17/2018): ordered * Elevated bilirubin, and transaminitis * Pain PRN: Morphine 4 mg q4h PRN * Nausea PRN: well controlled with Zofran 4 mg IVP q4h PRN, Reglan 5mg IVP q6h prn * Tylenol 650 mg rectally prn ordered for F temp > 100.4 * IV NS at 125 mls/hr * IV abx:Aztreonam 1 gm IVPB qd and Flagyl 500 mg IVPB q8h 2) Pancreatitis, Gallstone Assessment/Plan * likely secondary to cholelithiasis * lipase OA 1739 * Patient is NPO for bowel rest * Cont NS@125cc/hr * GI and general surgery on board 3) Hx of HTN Assessment/Plan * Home ASA 81mg po daily held d/t NPO status * Home Losartan 50 mg po daily held d/t NPO status * Monitor BP 4) Hx of DM Assessment/Plan * a1c: 8.8 * Lipid panel: T, chol: 148, LDL: 92, HDL: 20 * Accucheck q6h * Insulin sliding scale - moderate ordered * Metformin held d/t NPO status * Atorvastatin 20 mg po daily held d/t NPO status * hypoglycemic protocol 5) Transaminitis Assessment/Plan * monitor * downtrending * Going for OR for gallbladder stones and CBD stone * elevated bilirubin 6) Prophylaxis * SCDs * Protonix 40 mg IV qd * CI chemical VTE Disposition: Going to OR today with surgery. Patient is medically optimized. Surgery and anesthesia discuss risk and benefits of procedure prior to OR respectively. preoperative/intraoperative/postoperative management per surgery.
[2018-05-19 07:34] LABS: ALB/GLOB RATIO 1.1 (1.0-2.1); ALBUMIN 3.6 g/dL (3.5-5.0)
[2018-05-19 07:46] LABS: ALT/SGPT 241 U/L (9-52); AST/SGOT 74 U/L (14-36); BLOOD UREA NITROGEN 8 mg/dL (7-17); CALCIUM 9.6 mg/dl (8.6-10.4); GFR NON-AFRICAN AMERICAN > 60
--- NOTE | 2018-05-19 11:43 | CP.PCM.PN ---
Subjective - Date & Time of Evaluation Date of Evaluation: 05/19/18 Time of Evaluation: 11:41 - Subjective Subjective: Dr Bradley's coverage appreciated f/u gallstone pancreatitis with CBD stone, stented by Dr Bradley Denies pain For Marcos today Objective - Vital Signs/Intake and Output Vital Signs (last 24 hours): Temp Pulse Resp BP Pulse Ox 98.8 F 73 20 160/78 H 96 05/19/18 08:31 05/19/18 08:31 05/19/18 08:31 05/19/18 08:31 05/19/18 08:31 Intake and Output: 05/19/18 05/19/18 06:59 18:59 Intake Total 950 1000 Balance 950 1000 - Medications Medications: Current Medications Acetaminophen (Tylenol 650 Mg Supp) 650 mg [place] Q6 PRN PRN Reason: Fever >100.4 F Dextrose (Dextrose 50% Inj) 50 ml IVP ONCE PRN PRN Reason: Hypoglycemia Dextrose (Dextrose 50% Inj) 0 ml IV STAT PRN; Protocol PRN Reason: Hypoglycemia Protocol Dextrose (Glutose 15) 0 gm PO ONCE PRN; Protocol PRN Reason: Hypoglycemia Protocol Glucagon (Glucagen Diagnostic Kit) 0 mg IM STAT PRN; Protocol PRN Reason: Hypoglycemia Protocol Aztreonam 1 gm/ Sodium (Chloride) 100 mls @ 100 mls/hr IVPB Q8H [facility] PRN Reason: Protocol Last Admin: 05/19/18 09:44 Dose: 100 mls/hr Sodium Chloride (Sodium Chloride 0.9%) 1,000 mls @ 125 mls/hr IV .Q8H [facility] Last Admin: 05/19/18 08:21 Dose: Not Given Metronidazole (Flagyl) 500 mg in 100 mls @ 100 mls/hr IVPB Q8H [facility] PRN Reason: Protocol Last Admin: 05/19/18 06:12 Dose: 100 mls/hr Dextrose (Dextrose 5% In Water 1000 Ml) 1,000 mls @ 0 mls/hr IV .Q0M PRN; Protocol; Per Protocol PRN Reason: Hypoglycemia Protocol Insulin Human Regular (Novolin R) 0 unit SC Q6H [facility]ID PRN Reason: Protocol Last Admin: 05/19/18 07:37 Dose: Not Given Losartan Potassium (Cozaar) 50 mg PO DAILY [facility] Last Admin: 09/10/18 10:19 Dose: Not Given Metoclopramide HCl (Reglan) 5 mg IVP Q6H [facility] Last Admin: 05/19/18 06:14 Dose: 5 mg Morphine Sulfate (Morphine) 1 mg IVP Q4H PRN PRN Reason: Pain, severe (8-10) Ondansetron HCl (Zofran Inj) 4 mg IVP Q6H PRN PRN Reason: Nausea/Vomiting Pantoprazole Sodium (Protonix Inj) 40 mg IVP DAILY [facility] Last Admin: 05/19/18 09:35 Dose: 40 mg Zinc Acetate/Diphenhydramine (Benadryl 1% Zinc Acetate -0.1%) 1 cre TOP DAILY PRN PRN Reason: Itching / Pruritus - Labs Labs: 05/19/18 06:55 05/19/18 06:55 PT 12.9 SECONDS (9.7-12.2) H 05/18/18 07:17 INR 1.2 05/18/18 07:17 APTT 36 SECONDS (21-34) H 05/18/18 07:17 - Constitutional Appears: Well, No Acute Distress - Head Exam Head Exam: NORMOCEPHALIC - Eye Exam Eye Exam: absent: Scleral icterus - Respiratory Exam Respiratory Exam: NORMAL BREATHING PATTERN - Cardiovascular Exam Cardiovascular Exam: REGULAR RHYTHM - GI/Abdominal Exam GI & Abdominal Exam: Soft. absent: Distended, Tenderness Assessment and Plan (1) Pancreatitis Assessment & Plan: gallstone pancreatitis with CBD stone, stented via ERCP. Clinically improving Agree with plans for Lap Marcos Status: Acute
[2018-05-19] MEDS ORDERED: Iohexol 240 (50 ml) ONE ×2 (12:55→15:17)
[2018-05-19] MEDS ORDERED: Propofol 10 mg/ml Inj (20 ML) ONE (13:01)
[2018-05-19] MEDS ORDERED: Midazolam 2 MG/2 ML VIAL ONE (14:06)
[2018-05-19] MEDS ORDERED: Glucagon Recombinant 1 mg Inj ONE (14:39)
--- NOTE | 2018-05-19 16:06 | PCM.SURG1 ---
Surgeon's Initial Post Op Note - Surgeon's Notes Surgeon: Dr Marshall Pulp And Paper Tester: Km PGY4, Rafal PGY3, Javier MS3 Type of Anesthesia: General Endo Pre-Operative Diagnosis: choledocholithiasis, gallstone pancreatitis Operative Findings: chronically inflammed gallbladder. 2 large impacted stones in distal CBD Post-Operative Diagnosis: as above Operation Performed: Lysis of adhesions. cholecystectomy. intra-operative cholangiogram. exploration of common bile duct Specimen/Specimens Removed: gallbladder, stones Estimated Blood Loss: EBL {In ML}: 200 Blood Products Given: N/A Drains Used: Florentin (19F) Post-Op Condition: Good Date of Surgery/Procedure: 05/19/18 Time of Surgery/Procedure: 16:06
[2018-05-19] MEDS ORDERED: Lactated Ringer's 1,000 ML IV SCH (16:30)
[2018-05-19] MEDS ORDERED: HYDROmorphone 0.5 mg/0.5 ml ISec ONE (16:37)
[2018-05-19] MEDS: HYDROmorphone 0.5 mg/0.5 ml ISec IVP PRN ×3 (16:37→17:19)
--- NOTE | 2018-05-19 17:00 | RAD ---
Date of service: 05/19/2018 PROCEDURE: Fluoroscopy up to 1 hr. HISTORY: CBD STONES COMPARISON: None TECHNIQUE: Standard protocol for this study/examination. FINDINGS: Total fluoroscopic time (continuous mode) utilized during the procedure 63.8 (seconds). Dose report: DLP 1724 (mGy/ m2): IMPRESSION: Less than 1 hr fluoroscopic assistance provided during performance of the procedure.
[2018-05-19 19:28] LABS: HEMOGLOBIN 11.8 g/dL (11.0-16.0); MEAN CELL VOLUME 74.9 fL (81.0-99.0); MEAN CORPUSCULAR HGB CONC 34.7 g/dL (33.0-37.0); RBC 4.52 Mil/uL (3.80-5.20); RED CELL DISTRIBUTION WIDTH 15.6 % (11.5-14.5); WHITE BLOOD COUNT 18.2 K/uL (4.8-10.8)
[2018-05-19 19:47] LABS: ALB/GLOB RATIO 1.1 (1.0-2.1); ALBUMIN 3.4 g/dL (3.5-5.0); ALT/SGPT 242 U/L (9-52); AMYLASE 138 U/L (30-110); AST/SGOT 132 U/L (14-36); BLOOD UREA NITROGEN 8 mg/dL (7-17); CALCIUM 8.9 mg/dl (8.6-10.4); GFR NON-AFRICAN AMERICAN > 60; LIPASE 718 U/L (23-300)
[2018-05-20 01:36] VITALS: RESP 20
[2018-05-20] MEDS: Aztreonam 1 GM in Sodium Chloride 0.9% 100 ML IVPB SCH ×3 (01:58→18:36)
[2018-05-20] MEDS: Sodium Chloride 0.9% 1,000 ML IV SCH ×4 (05:28→18:18)
[2018-05-20] MEDS: (Novolin R) Insulin Human Regular 100 units/ml vial SC SCH ×4 (06:40→18:36)
[2018-05-20] MEDS: metroNIDAZOLE IV 500 mg/100 ml 500 MG/100 ML BAG IVPB SCH ×3 (07:06→22:23)
[2018-05-20] MEDS ORDERED: HYDROmorphone 0.5 mg/0.5 ml ISec IVP PRN (07:06)
[2018-05-20 07:16] LABS: BASO % 0.1 % (0.0-2.0); LYMPH # 1.2 K/uL (1.0-4.3); LYMPH % 7.2 % (20.0-40.0); MEAN CELL VOLUME 76.1 fL (81.0-99.0); MEAN CORPUSCULAR HEMOGLOBIN 25.7 pg (27.0-31.0); MEAN CORPUSCULAR HGB CONC 33.8 g/dL (33.0-37.0); MEAN PLATELET VOLUME 8.5 fL (7.2-11.7); MONO # 0.9 K/uL (0.0-0.8); MONO % 5.7 % (0.0-10.0); NEUT # 13.9 K/uL (1.8-7.0); PLATELET COUNT 661 K/uL (130-400); RBC 4.67 Mil/uL (3.80-5.20); RED CELL DISTRIBUTION WIDTH 15.8 % (11.5-14.5)
[2018-05-20 07:54] LABS: ALBUMIN 3.2 g/dL (3.5-5.0); ALT/SGPT 196 U/L (9-52); AST/SGOT 74 U/L (14-36); BLOOD UREA NITROGEN 6 mg/dL (7-17); CALCIUM 8.9 mg/dl (8.6-10.4); GFR NON-AFRICAN AMERICAN > 60
--- NOTE | 2018-05-20 07:57 | CP.PCM.PN ---
<Robin Casey - Last Filed: 05/20/18 13:45> Subjective - Date & Time of Evaluation Date of Evaluation: 05/20/18 Time of Evaluation: 07:30 - Subjective Subjective: PGY-1 Medicine Progress Note for Dr. Alberto Patient seen and examined at bedside today with family present. Patient notes that she has no pain in her abdomen, but rather a discomfort in her RUQ, over the surgical site, that is exacerbated with sitting up. She notes she has been getting up to urinate throughout the night and has been passing gas, but has not had a BM since her procedure yesterday afternoon. She denies fevers, chills , chest pain, palpitations, dizziness, headaches, back pain, or shortness of breath. She does note mild discomfort over her surgical site with deep inspiration, but despite this, she has been using her incentive spirometer. Objective - Vital Signs/Intake and Output Vital Signs (last 24 hours): Temp Pulse Resp BP Pulse Ox 98.9 F 86 20 151/75 H 94 L 05/20/18 00:00 05/20/18 00:00 05/20/18 00:00 05/20/18 00:00 05/20/18 00:00 Intake and Output: 05/20/18 05/20/18 06:59 18:59 Intake Total 1850 Output Total 260 Balance 1590 - Medications Medications: Current Medications Acetaminophen (Tylenol 650 Mg Supp) 650 mg MD Q6 PRN PRN Reason: Fever >100.4 F Dextrose (Dextrose 50% Inj) 50 ml IVP ONCE PRN PRN Reason: Hypoglycemia Dextrose (Dextrose 50% Inj) 0 ml IV STAT PRN; Protocol PRN Reason: Hypoglycemia Protocol Dextrose (Glutose 15) 0 gm PO ONCE PRN; Protocol PRN Reason: Hypoglycemia Protocol Enoxaparin Sodium (Lovenox) 40 mg SC DAILY [facility] Glucagon (Glucagen Diagnostic Kit) 0 mg IM STAT PRN; Protocol PRN Reason: Hypoglycemia Protocol Hydromorphone HCl (Dilaudid) 0.5 mg IVP Q3H PRN PRN Reason: Pain, moderate (4-7) Aztreonam 1 gm/ Sodium (Chloride) 100 mls @ 100 mls/hr IVPB Q8H [facility] PRN Reason: Protocol Last Admin: 05/20/18 01:58 Dose: 100 mls/hr Metronidazole (Flagyl) 500 mg in 100 mls @ 100 mls/hr IVPB Q8H [facility] PRN Reason: Protocol Last Admin: 05/20/18 07:06 Dose: 100 mls/hr Dextrose (Dextrose 5% In Water 1000 Ml) 1,000 mls @ 0 mls/hr IV .Q0M PRN; Protocol; Per Protocol PRN Reason: Hypoglycemia Protocol Sodium Chloride (Sodium Chloride 0.9%) 1,000 mls @ 150 mls/hr IV .Q6H40M [facility] Last Admin: 05/20/18 05:28 Dose: Not Given Insulin Human Regular (Novolin R) 0 unit SC Q6H [facility] PRN Reason: Protocol Last Admin: 05/20/18 06:40 Dose: 4 units Losartan Potassium (Cozaar) 50 mg PO DAILY [facility] Last Admin: 05/17/18 10:19 Dose: Not Given Ondansetron HCl (Zofran Inj) 4 mg IVP Q6H PRN PRN Reason: Nausea/Vomiting Zinc Acetate/Diphenhydramine (Benadryl 1% Zinc Acetate -0.1%) 1 cre TOP DAILY PRN PRN Reason: Itching / Pruritus - Labs Labs: 05/20/18 06:43 05/20/18 06:43 PT 12.9 SECONDS (9.7-12.2) H 05/18/18 07:17 INR 1.2 05/18/18 07:17 APTT 36 SECONDS (21-34) H 05/18/18 07:17 - Constitutional Appears: Non-toxic, No Acute Distress - Head Exam Head Exam: ATRAUMATIC, NORMAL INSPECTION, NORMOCEPHALIC - Eye Exam Eye Exam: EOMI, Normal appearance - ENT Exam ENT Exam: Mucous Membranes Moist - Respiratory Exam Respiratory Exam: Clear to Ausculation Bilateral, NORMAL BREATHING PATTERN. absent: Rales, Rhonchi, Wheezes - GI/Abdominal Exam GI & Abdominal Exam: Soft, Normal Bowel Sounds. absent: Firm, Guarding, Rigid Additional comments: RUQ dressing CDI with drain in place, draining clear dark red/brown fluid, Mild tenderness to RUQ, epigastrium and LUQ, no rigidity, no guarding, normoactive bowel sounds - Extremities Exam Extremities Exam: Full ROM, Normal Inspection. absent: Calf Tenderness, Pedal Edema, Tenderness - Neurological Exam Neurological Exam: Alert, Awake, Oriented x3 - Psychiatric Exam Psychiatric exam: Normal Affect, Normal Mood - Skin Skin Exam: Dry, Intact, Normal Color, Warm Additional comments: 1x1 cm area of erythema to the right first digit lateral to the nail border - chronic Assessment and Plan - Assessment and Plan (Free Text) Assessment: Assessment and Plan: 62 year old female with PMHx of HTN and DM admitted for choledocholithiasis and and pancreatitis, who is POD #1 s/p cholecystectomy 1) Choledocholithiasis Imaging: - CT abdomen/pelvis (05/16/2018) - Cholelithiasis with a contracted distorted gallbladder. Slightly thickened indurated gallbladder wall with some infiltration in the adjacent mesenteries suggesting acute cholecystitis. There is choledocholithiasis with dilatation of the CBD and intrahepatic biliary ductal dilatation - CXR (05/17/2018) - Poor inspiration with low lung volumes, crowded bronchovascular markings and minor bibasilar atelectasis - Abdominal Ultrasound (05/17/2018) - Mild hepatomegaly. Diffuse increased echogenicity in the liver may reflect hepatic steatosis however parenchymal infectious/inflammatory etiologies cannot be excluded. Cholelithiasis, mild diffuse dilation of the common bile duct without evidence for choledocholithiasis. - ERCP (05/17/18) - 1 ml omnipaque biliary stent placed - EKG (05/17/2018) - Normal Sinus Rhythm at 78, normal axis deviation, normal R wave progression, no acute STT changes - MRCP (05/17/2018) - dilated common bile duct measuring approximately 8 mm in diameter. Tiny filling defect within the mid CBD measuring approximately 5 mm; possibly calculus. Mild intrahepatic biliary duct dilation. - PA and Lateral CXR (05/18/2018) - No active disease Labs: - Labs reviewed: - Lipase - 1739 (OA) --> 2372 --> 279 --> 718 - Amylase - 275 (OA) --> 138 - AST - 188 --> 187 --> 130 --> 74 --> 74 - ALT - 455 --> 423 --> 327 --> 241 --> 196 - T Bili - 2.3 --> 3.9 --> 2.5 --> 2.3 - WBC - 21.8 --> 12.7 --> 10.5 --> 11.8 --> 16 - Alk Phos - 364 --> 333 --> 338 --> 350 --> 273 - UA/Urine Tox - Negative - AFP - 3.3 (WNL), CA 19-9 - 159 (elevated), CEA - 1.8 (WNL) - PT - 12.2 --> 12.9, INR - 1.1 --> 1.1, PTT - 35 --> 36 - A1c - 8.1 (elevated) - sugars have been well controlled this admission on ISS moderate - TG - 153 (elevated), Total Chol - 148 (WNL), LDL - 92 (WNL), HDL - 20 (low) Consults: - Surgery consulted (Dr. Marshall) - help appreciated - GI consult placed to Dr. López (Dr. Kirk pimentel) - help appreciated - Patient is NPO for CBD exploration, and possible cholecystectomy on 05/19/2018 - Surgery performed cholecystectomy on 05/19/2018 with lysis of adhesions, intraoperative cholangiogram and drain placement - Patient should remain NPO - has drained 300 ccs of fluid since surgery - Encourage use of incentive spirometer - Encourage OOB ambulation Meds: - Pain controlled with Dilaudid 0.5 mg IVP q3h PRN - Nausea well controlled with Zofran 4 mg IVP q4h PRN - Benadryl 25mg IVP daily prn for itching - Tylenol 650 mg rectally PRN ordered for F temp > 100.4 - IV NS at 150 mls/hr q6h - Leukocytosis treated with Aztreonam 1 gm IVPB qd and Flagyl 500 mg IVPB q8h 2) Pancreatitis, acute - likely secondary to choledocholithiasis - lipase OA 1739 --> 2372 --> 279 --> 718 - Patient is NPO for bowel rest - Continue NS at 150 ml/hr - Zofran 4 mg IVP q4h PRN - Dilaudid 0.5 mg Q3 prn 3) Transaminitis - Likely 2/2 Choledocholithiasis - AST - 188 --> 187 --> 130 --> 74 --> 74 - ALT - 455 --> 423 --> 327 --> 241 --> 196 - T Bili - 2.3 --> 3.9 --> 2.5 --> 2.3 - Currently downtrending, will continue to monitor 3) Hyperlipidemia - Lipid panel - TG - 153 (elevated) - Total Chol - 148 (WNL) - LDL - 92 (WNL) - HDL - 20 (low) - ASCVD Risk - 15.8%; will consider high dose statin on discharge pending LFT trend 4) Hx of HTN - Home ASA 81mg po daily held d/t NPO status/surgery, will continue 48hrs post procedure, pending NPO status - Home Losartan 50 mg po daily held d/t NPO status - Monitor BP 5) Hx of DM - Blood sugar: 355 --> 280 --> 191 --> 159 --> 285 - Accucheck q6h - Insulin sliding scale - moderate ordered - Metformin held d/t NPO status/ elevated LFTs - Atorvastatin 20 mg po daily held d/t NPO status/ elevated LFTs 6) Constipation - Resolved - Dulcolax 10mg once 7) Prophylaxis - SCDs and Lovenox 40 mg sc daily - Protonix 40 mg IV qd d/w Dr. Remy Casey PGY-1 <Jennifer Alberto V - Last Filed: 05/23/18 15:28> Objective - Vital Signs/Intake and Output Vital Signs (last 24 hours): Temp Pulse Resp BP Pulse Ox 98.8 F 78 20 155/79 H 96 05/23/18 00:00 05/23/18 00:00 05/23/18 00:00 05/23/18 00:00 05/23/18 00:00 Intake and Output: 05/23/18 05/23/18 06:59 18:59 Intake Total 1250 1080 Output Total 0 0 Balance 1250 1080 - Medications Medications: Current Medications Acetaminophen (Tylenol 650 Mg Supp) 650 mg MD Q6 PRN PRN Reason: Fever >100.4 F Dextrose (Dextrose 50% Inj) 50 ml IVP ONCE PRN PRN Reason: Hypoglycemia Dextrose (Dextrose 50% Inj) 0 ml IV STAT PRN; Protocol PRN Reason: Hypoglycemia Protocol Dextrose (Glutose 15) 0 gm PO ONCE PRN; Protocol PRN Reason: Hypoglycemia Protocol Enoxaparin Sodium (Lovenox) 40 mg SC DAILY [facility] Last Admin: 09/16/18 09:37 Dose: 40 mg Glucagon (Glucagen Diagnostic Kit) 0 mg IM STAT PRN; Protocol PRN Reason: Hypoglycemia Protocol Metronidazole (Flagyl) 500 mg in 100 mls @ 100 mls/hr IVPB Q8H [facility] PRN Reason: Protocol Last Admin: 05/23/18 14:12 Dose: 100 mls/hr Dextrose (Dextrose 5% In Water 1000 Ml) 1,000 mls @ 0 mls/hr IV .Q0M PRN; Protocol; Per Protocol PRN Reason: Hypoglycemia Protocol Aztreonam 2 gm/ Sodium (Chloride) 100 mls @ 200 mls/hr IVPB Q8H [facility] PRN Reason: Protocol Last Admin: 05/23/18 11:38 Dose: 200 mls/hr Vancomycin/Sodium Chloride (Vancomycin 1 Gm/Ns 200 Ml) 1 gm in 200 mls @ 133 mls/hr IVPB Q12H [facility] PRN Reason: Protocol Stop: 05/26/18 20:01 Last Admin: 05/23/18 11:14 Dose: 133 mls/hr Sodium Chloride (Sodium Chloride 0.9%) 1,000 mls @ 60 mls/hr IV .[id number] [facility] Last Admin: 05/23/18 11:39 Dose: 60 mls/hr Insulin Aspart (Novolog) 3 unit SC AC [facility] Last Admin: 05/23/18 11:45 Dose: 3 unit Insulin Aspart (Novolog) 0 unit SC ACHS [facility] PRN Reason: Protocol Last Admin: 05/23/18 11:46 Dose: 6 unit Insulin Glargine (Lantus) 5 unit SC HS [facility] Losartan Potassium (Cozaar) 50 mg PO DAILY [facility] Last Admin: 05/23/18 09:36 Dose: 50 mg Ondansetron HCl (Zofran Inj) 4 mg IVP Q6H PRN PRN Reason: Nausea/Vomiting Oxycodone/Acetaminophen (Percocet 5/325 Mg Tab) 1 tab PO Q4H PRN PRN Reason: Pain, moderate (4-7) Stop: 05/26/18 09:54 Pantoprazole Sodium (Protonix Inj) 40 mg IVP DAILY [facility] Last Admin: 05/23/18 09:36 Dose: 40 mg Saccharomyces Boulardii (Florastor) 250 mg PO Q12 [facility] Last Admin: 09/16/18 09:36 Dose: 250 mg Senna/Docusate Sodium (Senokot S 50 Mg-8.6 Mg) 1 tab PO BID [facility] Last Admin: 05/23/18 11:57 Dose: 1 tab Zinc Acetate/Diphenhydramine (Benadryl 1% Zinc Acetate -0.1%) 1 cre TOP DAILY PRN PRN Reason: Itching / Pruritus - Labs Labs: 05/23/18 09:02 05/23/18 09:02 PT 12.9 SECONDS (9.7-12.2) H 05/18/18 07:17 INR 1.2 05/18/18 07:17 APTT 36 SECONDS (21-34) H 05/18/18 07:17 Attending/Attestation - Attestation I have personally seen and examined this patient.: Yes I have fully participated in the care of the patient.: Yes I have reviewed all pertinent clinical information, including history, physical exam and plan: Yes Notes (Text): This is a late computer entry for 05/20/2018. Patient seen, examined, case discussed with medical manager. Patient seen in the morning with family present at bedside. Patient is postoperative day 1 of lysis of adhesions, cholecystectomy, intraoperative cholangiogram explosion of common bile duct. Patient is currently nothing by mouth. Patient does have an elevated white count we'll continue to monitor since she just had surgery yesterday. We have emphasized with patient to use her incentive spirometry postoperative. Patient is still IV antibiotic to cover. We will continue to monitor. Assessment/Plan 1) Choledocholithiasis Cholelithiasis Assessment/Plan * GI (Dr. Turcios covering Dr. 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 Bradley ( covering Dr. Turcios given holiday) * General surgery (Dr. Marshall) on case * going for surgery with exploration of the CBD 05/19/18 * preoperative/intraoperative/postoperative per surgery * 05/19/18: lysis of adhesions, cholecystectomy, intraoperative cholangiogram explosion of common bile duct * Patient underwent ERCP with stent, recommended for surgery given gallstones, cbd dilation, unable to visualize cyst duct * CT abdomen/pelvis (05/16/2018) - Cholelithiasis with a contracted distorted gallbladder. Slightly thickened indurated gallbladder wall with some infiltration in the adjacent mesenteries suggesting acute cholecystitis. There is choledocholithiasis with dilatation of the CBD and intrahepatic biliary ductal dilatation * CXR (05/17/2018) - Poor inspiration with low lung volumes, crowded bronchovascular markings and minor bibasilar atelectasis * Abdominal Ultrasound (05/17/2018) - Mild hepatomegaly. Diffuse increased echogenicity in the liver may reflect hepatic steatosis however parenchymal infectious/inflammatory etiologies cannot be excluded. Cholelithiasis, mild diffuse dilation of the common bile duct without evidence for choledocholithiasis. * ERCP (05/17/18) - biliary stent placed. full report pending * MRCP (05/17/18): gallbladder appears compressed containing gallstones. Dilated common bile duct measuring approximately 8mm in diameter. Abrupt distal taper. tiny filling defect within the mid CBD measures ~5mm. Mild intrahepatic biliary fuctal dilatation. * EKG (05/17/2018): NSR * Elevated bilirubin, and transaminitis * Pain PRN: Morphine 4 mg q4h PRN * Nausea PRN: well controlled with Zofran 4 mg IVP q4h PRN, Reglan 5mg IVP q6h prn * Tylenol 650 mg rectally prn ordered for F temp > 100.4 * IV NS at 125 mls/hr * IV abx:Aztreonam 1 gm IVPB qd and Flagyl 500 mg IVPB q8h 2) Pancreatitis, Gallstone Assessment/Plan * likely secondary to cholelithiasis * lipase OA 1739 * Patient is NPO for bowel rest * GI and general surgery on board * patient is on IV fluid 3) Hx of HTN Assessment/Plan * Home ASA 81mg po daily held d/t NPO status * Home Losartan 50 mg po daily held d/t NPO status * Monitor BP 4) Hx of DM Assessment/Plan * a1c: 8.8 * Lipid panel: T, chol: 148, LDL: 92, HDL: 20 * Accucheck q6h * Insulin sliding scale - moderate ordered * Metformin held d/t NPO status * Atorvastatin 20 mg po daily held d/t NPO status * hypoglycemic protocol 5) Transaminitis Assessment/Plan * monitor * downtrending * Going for OR for gallbladder stones and CBD stone * elevated bilirubin 6) Prophylaxis * SCDs * Protonix 40 mg IV qd * CI chemical VTE Disposition: Patient is postoperative day 1 of lysis of adhesions, cholecystectomy, intraoperative cholangiogram explosion of common bile duct. postoperative management per surgery. He will continue to monito LFTs, bilirubin.
--- NOTE | 2018-05-20 08:54 | CP.PCM.PN ---
Subjective - Date & Time of Evaluation Date of Evaluation: 05/20/18 Time of Evaluation: 06:00 - Subjective Subjective: Patient seen and examined this morning. No acute events over night. Patient denies nausea/vomiting. Pain well controlled with analgesic regimen. 300cc of bilious output into CECY drain since surgery. Objective - Vital Signs/Intake and Output Vital Signs (last 24 hours): Temp Pulse Resp BP Pulse Ox 98.6 F 93 H 20 145/74 94 L 05/20/18 08:19 05/20/18 08:19 05/20/18 08:19 05/20/18 08:19 05/20/18 08:19 Intake and Output: 05/20/18 05/20/18 06:59 18:59 Intake Total 1850 Output Total 260 Balance 1590 - Medications Medications: Current Medications Acetaminophen (Tylenol 650 Mg Supp) 650 mg SC Q6 PRN PRN Reason: Fever >100.4 F Dextrose (Dextrose 50% Inj) 50 ml IVP ONCE PRN PRN Reason: Hypoglycemia Dextrose (Dextrose 50% Inj) 0 ml IV STAT PRN; Protocol PRN Reason: Hypoglycemia Protocol Dextrose (Glutose 15) 0 gm PO ONCE PRN; Protocol PRN Reason: Hypoglycemia Protocol Enoxaparin Sodium (Lovenox) 40 mg SC DAILY [facility] Glucagon (Glucagen Diagnostic Kit) 0 mg IM STAT PRN; Protocol PRN Reason: Hypoglycemia Protocol Hydromorphone HCl (Dilaudid) 0.5 mg IVP Q3H PRN PRN Reason: Pain, moderate (4-7) Aztreonam 1 gm/ Sodium (Chloride) 100 mls @ 100 mls/hr IVPB Q8H [facility] PRN Reason: Protocol Last Admin: 05/20/18 01:58 Dose: 100 mls/hr Metronidazole (Flagyl) 500 mg in 100 mls @ 100 mls/hr IVPB Q8H [facility] PRN Reason: Protocol Last Admin: 05/20/18 07:06 Dose: 100 mls/hr Dextrose (Dextrose 5% In Water 1000 Ml) 1,000 mls @ 0 mls/hr IV .Q0M PRN; Protocol; Per Protocol PRN Reason: Hypoglycemia Protocol Sodium Chloride (Sodium Chloride 0.9%) 1,000 mls @ 150 mls/hr IV .Q6H40M [facility] Last Admin: 05/20/18 05:28 Dose: Not Given Insulin Human Regular (Novolin R) 0 unit SC Q6H [facility] PRN Reason: Protocol Last Admin: 05/20/18 06:40 Dose: 4 units Losartan Potassium (Cozaar) 50 mg PO DAILY [facility] Last Admin: 05/17/18 10:19 Dose: Not Given Ondansetron HCl (Zofran Inj) 4 mg IVP Q6H PRN PRN Reason: Nausea/Vomiting Zinc Acetate/Diphenhydramine (Benadryl 1% Zinc Acetate -0.1%) 1 cre TOP DAILY PRN PRN Reason: Itching / Pruritus - Labs Labs: 05/20/18 06:43 05/20/18 06:43 PT 12.9 SECONDS (9.7-12.2) H 05/18/18 07:17 INR 1.2 05/18/18 07:17 APTT 36 SECONDS (21-34) H 05/18/18 07:17 - Constitutional Appears: No Acute Distress - Head Exam Head Exam: NORMOCEPHALIC - Respiratory Exam Respiratory Exam: NORMAL BREATHING PATTERN - Cardiovascular Exam Cardiovascular Exam: +S1, +S2 - GI/Abdominal Exam GI & Abdominal Exam: Soft, Tenderness. absent: Distended, Firm, Guarding, Rebound - Neurological Exam Neurological Exam: Alert, Awake, Oriented x3 - Psychiatric Exam Psychiatric exam: Normal Mood - Skin Skin Exam: Dry, Intact, Warm Assessment and Plan - Assessment and Plan (Free Text) Assessment: 62F with choledocholithiasis and gallstone pancreatitis s/p CBD exploration POD1 Plan: Remain NPO Strict I&O's IVF C/w ABx C/w analgesics C/w anti-emetics Trend LFT's Encourage incentive spirometer use OOB to chair Encourage Ambulation PT DVT ppx D/w Dr. Rolando Cruz PGY3
[2018-05-20] MEDS ORDERED: Pantoprazole 40 mg EC Tab PO SCH (10:00)
[2018-05-20 10:36] LABS: BANDS 7 % (0-2); LYMPHOCYTE 10 % (20-40); MONOCYTE 7 % (0-10); NEUTROPHIL 75 % (50-75); PLATELET ESTIMATE INCREASED (NORMAL); REACTIVE LYMPHOCYTES 1 % (0-0); TOTAL CELLS COUNTED 100
[2018-05-20 10:37] LABS: ANISOCYTOSIS SLIGHT; TARGET CELLS SLIGHT
[2018-05-20] MEDS: Enoxaparin 40 mg Syringe SC SCH (11:19)
--- NOTE | 2018-05-20 13:59 | CP.PCM.PN ---
Subjective - Date & Time of Evaluation Date of Evaluation: 05/20/18 Time of Evaluation: 13:57 - Subjective Subjective: f/u pancreattiis s/p ERCP and AMMY Family is present HAs sl abdom pain Denies RB, fever, dimas;suresh, CP, soB, SZ, cough, hematuria, hemoptysis Objective - Vital Signs/Intake and Output Vital Signs (last 24 hours): Temp Pulse Resp BP Pulse Ox 98.6 F 93 H 20 145/74 94 L 05/20/18 08:19 05/20/18 08:19 05/20/18 08:19 05/20/18 08:19 05/20/18 08:19 Intake and Output: 05/20/18 05/20/18 06:59 18:59 Intake Total 1850 Output Total 260 Balance 1590 - Medications Medications: Current Medications Acetaminophen (Tylenol 650 Mg Supp) 650 mg [place] Q6 PRN PRN Reason: Fever >100.4 F Dextrose (Dextrose 50% Inj) 50 ml IVP ONCE PRN PRN Reason: Hypoglycemia Dextrose (Dextrose 50% Inj) 0 ml IV STAT PRN; Protocol PRN Reason: Hypoglycemia Protocol Dextrose (Glutose 15) 0 gm PO ONCE PRN; Protocol PRN Reason: Hypoglycemia Protocol Enoxaparin Sodium (Lovenox) 40 mg SC DAILY [facility] Last Admin: 05/20/18 11:19 Dose: 40 mg Glucagon (Glucagen Diagnostic Kit) 0 mg IM STAT PRN; Protocol PRN Reason: Hypoglycemia Protocol Hydromorphone HCl (Dilaudid) 0.5 mg IVP Q3H PRN PRN Reason: Pain, moderate (4-7) Aztreonam 1 gm/ Sodium (Chloride) 100 mls @ 100 mls/hr IVPB Q8H [facility] PRN Reason: Protocol Last Admin: 05/20/18 11:18 Dose: 100 mls/hr Metronidazole (Flagyl) 500 mg in 100 mls @ 100 mls/hr IVPB Q8H [facility] PRN Reason: Protocol Last Admin: 05/20/18 07:06 Dose: 100 mls/hr Dextrose (Dextrose 5% In Water 1000 Ml) 1,000 mls @ 0 mls/hr IV .Q0M PRN; Protocol; Per Protocol PRN Reason: Hypoglycemia Protocol Sodium Chloride (Sodium Chloride 0.9%) 1,000 mls @ 150 mls/hr IV .Q6H40M [facility] Last Admin: 05/20/18 09:06 Dose: 150 mls/hr Insulin Human Regular (Novolin R) 0 unit SC Q6H [facility] PRN Reason: Protocol Last Admin: 05/20/18 11:55 Dose: Not Given Losartan Potassium (Cozaar) 50 mg PO DAILY [facility] Last Admin: 05/20/18 11:15 Dose: Not Given Ondansetron HCl (Zofran Inj) 4 mg IVP Q6H PRN PRN Reason: Nausea/Vomiting Pantoprazole Sodium (Protonix Inj) 40 mg IVP DAILY [facility] Last Admin: 05/20/18 11:55 Dose: 40 mg Saccharomyces Boulardii (Florastor) 250 mg PO Q12 [facility] Zinc Acetate/Diphenhydramine (Benadryl 1% Zinc Acetate -0.1%) 1 cre TOP DAILY PRN PRN Reason: Itching / Pruritus - Labs Labs: 05/20/18 06:43 05/20/18 06:43 PT 12.9 SECONDS (9.7-12.2) H 05/18/18 07:17 INR 1.2 05/18/18 07:17 APTT 36 SECONDS (21-34) H 05/18/18 07:17 - Constitutional Appears: Non-toxic - Respiratory Exam Respiratory Exam: Clear to Ausculation Bilateral - Cardiovascular Exam Cardiovascular Exam: RRR - GI/Abdominal Exam GI & Abdominal Exam: Soft, Tenderness, Normal Bowel Sounds. absent: Guarding, Rigid - Extremities Exam Extremities Exam: absent: Calf Tenderness - Neurological Exam Neurological Exam: Alert, Awake Assessment and Plan (1) Pancreatitis Assessment & Plan: s/p ERCP and AMMY. LFTs are improving. WBC- 16 Rec- check labs. Status: Acute
[2018-05-20] MEDS: Saccharomyces Boulardi 250 mg Cap PO SCH (21:38)
[2018-05-21] MEDS: (Novolin R) Insulin Human Regular 100 units/ml vial SC SCH ×4 (00:24→18:21)
[2018-05-21] MEDS: Sodium Chloride 0.9% 1,000 ML IV SCH ×3 (01:28→10:06)
[2018-05-21] MEDS: Aztreonam 1 GM in Sodium Chloride 0.9% 100 ML IVPB SCH ×3 (02:03→18:20)
[2018-05-21] MEDS: metroNIDAZOLE IV 500 mg/100 ml 500 MG/100 ML BAG IVPB SCH ×3 (06:52→22:13)
--- NOTE | 2018-05-21 07:26 | CP.PCM.PN ---
<Maddie Llanes - Last Filed: 05/21/18 19:01> Subjective - Date & Time of Evaluation Date of Evaluation: 05/21/18 Time of Evaluation: 07:10 - Subjective Subjective: PGY-1 Medicine Progress Note for Dr. Alberto Patient seen and examined at bedside today with family present in no acute distress. Patient is s/p cholecystectomy POD #2. She notes her abdominal pain in the RUQ over her surgical site is present only with application of pressure. She also states that overnight she had onset of a cough productive of clear phlegm, noted onset of subjective fever and diaphoresis, and has been feeling dizzy, specifically with movement of her head. She has been able to walk with assistance from her family and has been urinating comfortably. She has been passing gas but has not had a BM since the procedure. Otherwise, she denies chest pain, palpitations, nausea, vomiting, diarrhea, constipation, shortness of breath, pain with deep inspiration, or hearing/vision changes. Objective - Vital Signs/Intake and Output Vital Signs (last 24 hours): Temp Pulse Resp BP Pulse Ox 99.2 F 95 H 20 150/75 96 05/21/18 00:00 05/21/18 00:00 05/21/18 00:00 05/21/18 00:00 05/21/18 00:00 Intake and Output: 05/21/18 05/21/18 06:59 18:59 Intake Total 2400 Output Total 270 Balance 2130 - Medications Medications: Current Medications Acetaminophen (Tylenol 650 Mg Supp) [address] Q6 PRN PRN Reason: Fever >100.4 F Dextrose (Dextrose 50% Inj) 50 ml IVP ONCE PRN PRN Reason: Hypoglycemia Dextrose (Dextrose 50% Inj) 0 ml IV STAT PRN; Protocol PRN Reason: Hypoglycemia Protocol Dextrose (Glutose 15) 0 gm PO ONCE PRN; Protocol PRN Reason: Hypoglycemia Protocol Enoxaparin Sodium (Lovenox) 40 mg SC DAILY [facility] Last Admin: 05/20/18 11:19 Dose: 40 mg Glucagon (Glucagen Diagnostic Kit) 0 mg IM STAT PRN; Protocol PRN Reason: Hypoglycemia Protocol Hydromorphone HCl (Dilaudid) 0.5 mg IVP Q3H PRN PRN Reason: Pain, moderate (4-7) Last Admin: 05/20/18 18:35 Dose: 0.5 mg Aztreonam 1 gm/ Sodium (Chloride) 100 mls @ 100 mls/hr IVPB Q8H [facility] PRN Reason: Protocol Last Admin: 05/21/18 02:03 Dose: 100 mls/hr Metronidazole (Flagyl) 500 mg in 100 mls @ 100 mls/hr IVPB Q8H [facility] PRN Reason: Protocol Last Admin: 05/21/18 06:52 Dose: 100 mls/hr Dextrose (Dextrose 5% In Water 1000 Ml) 1,000 mls @ 0 mls/hr IV .Q0M PRN; Protocol; Per Protocol PRN Reason: Hypoglycemia Protocol Sodium Chloride (Sodium Chloride 0.9%) 1,000 mls @ 150 mls/hr IV .Q6H40M [facility] Last Admin: 05/21/18 06:46 Dose: 150 mls/hr Insulin Human Regular (Novolin R) 0 unit SC Q6H [facility] PRN Reason: Protocol Last Admin: 05/21/18 06:03 Dose: Not Given Losartan Potassium (Cozaar) 50 mg PO DAILY [facility] Last Admin: 05/20/18 11:15 Dose: Not Given Ondansetron HCl (Zofran Inj) 4 mg IVP Q6H PRN PRN Reason: Nausea/Vomiting Pantoprazole Sodium (Protonix Inj) 40 mg IVP DAILY [facility] Last Admin: 05/20/18 11:55 Dose: 40 mg Saccharomyces Boulardii (Florastor) 250 mg PO Q12 [facility] Last Admin: 05/20/18 21:38 Dose: 250 mg Zinc Acetate/Diphenhydramine (Benadryl 1% Zinc Acetate -0.1%) 1 cre TOP DAILY PRN PRN Reason: Itching / Pruritus - Labs Labs: 05/20/18 06:43 05/20/18 06:43 PT 12.9 SECONDS (9.7-12.2) H 05/18/18 07:17 INR 1.2 05/18/18 07:17 APTT 36 SECONDS (21-34) H 05/18/18 07:17 - Constitutional Appears: Non-toxic, No Acute Distress - Head Exam Head Exam: ATRAUMATIC, NORMAL INSPECTION, NORMOCEPHALIC - Eye Exam Eye Exam: EOMI, Normal appearance, PERRL. absent: Conjunctival injection, Scleral icterus Pupil Exam: NORMAL ACCOMODATION, PERRL - ENT Exam ENT Exam: Mucous Membranes Dry, Normal External Ear Exam Additional comments: Jaundice noted to the posterior pharynx and inferior to the tongue - Neck Exam Neck Exam: Full ROM, Normal Inspection. absent: Tenderness - Respiratory Exam Respiratory Exam: Clear to Ausculation Bilateral, NORMAL BREATHING PATTERN. absent: Chest Wall Tenderness, Rales, Rhonchi, Wheezes, Respiratory Distress - Cardiovascular Exam Cardiovascular Exam: REGULAR RHYTHM, +S1, +S2. absent: Gallop, Murmur - GI/Abdominal Exam GI & Abdominal Exam: Soft, Normal Bowel Sounds. absent: Distended, Firm, Guarding Additional comments: Mild tenderness to the RUQ and epigastrium, No tenderness over the LUQ, surgical dressings CDI overlying RUQ surgical site, Florentin drain in place draining dark nonturbulent bilious fluid - Extremities Exam Extremities Exam: Full ROM, Normal Capillary Refill, Normal Inspection. absent : Pedal Edema, Tenderness Additional comments: IV flushing well - Back Exam Back Exam: NORMAL INSPECTION. absent: CVA tenderness (L), CVA tenderness (R) - Neurological Exam Neurological Exam: Alert, Awake, Oriented x3 - Skin Skin Exam: Diaphoretic, Intact, Warm Additional comments: 1x1cm healing area of erythema to the right first digit proximal to the lateral nail border Assessment and Plan - Assessment and Plan (Free Text) Assessment: 62 year old female with PMHx of HTN and DM admitted for choledocholithiasis and and pancreatitis, who is POD #2 s/p cholecystectomy Plan: 1) Choledocholithiasis Imaging: - CT abdomen/pelvis (05/16/2018) - Cholelithiasis with a contracted distorted gallbladder. Slightly thickened indurated gallbladder wall with some infiltration in the adjacent mesenteries suggesting acute cholecystitis. There is choledocholithiasis with dilatation of the CBD and intrahepatic biliary ductal dilatation - CXR (05/17/2018) - Poor inspiration with low lung volumes, crowded bronchovascular markings and minor bibasilar atelectasis - Abdominal Ultrasound (05/17/2018) - Mild hepatomegaly. Diffuse increased echogenicity in the liver may reflect hepatic steatosis however parenchymal infectious/inflammatory etiologies cannot be excluded. Cholelithiasis, mild diffuse dilation of the common bile duct without evidence for choledocholithiasis. - ERCP (05/17/18) - 1 ml omnipaque biliary stent placed - EKG (05/17/2018) - Normal Sinus Rhythm at 78, normal axis deviation, normal R wave progression, no acute STT changes - MRCP (05/17/2018) - dilated common bile duct measuring approximately 8 mm in diameter. Tiny filling defect within the mid CBD measuring approximately 5 mm; possibly calculus. Mild intrahepatic biliary duct dilation. - PA and Lateral CXR (05/18/2018) - No active disease Labs: - Labs reviewed: - Lipase - 1739 (OA) --> 2372 --> 279 --> 718 --> 98 - Amylase - 275 (OA) --> 138 - AST - 188 --> 187 --> 130 --> 74 --> 74 --> 25 - ALT - 455 --> 423 --> 327 --> 241 --> 196 --> 119 - T Bili - 2.3 --> 3.9 --> 2.5 --> 2.3 --> 1.9 - WBC - 21.8 --> 12.7 --> 10.5 --> 11.8 --> 16 --> 19 - Alk Phos - 364 --> 333 --> 338 --> 350 --> 273 --> 219 - UA/Urine Tox - Negative - AFP - 3.3 (WNL), CA 19-9 - 159 (elevated), CEA - 1.8 (WNL) - PT - 12.2 --> 12.9, INR - 1.1 --> 1.1, PTT - 35 --> 36 - A1c - 8.1 (elevated) - sugars have been well controlled this admission on ISS moderate - TG - 153 (elevated), Total Chol - 148 (WNL), LDL - 92 (WNL), HDL - 20 (low) Consults: - Surgery consulted (Dr. Marshall) - help appreciated - GI consult placed to Dr. López (Dr. Kirk pimentel) - help appreciated - Surgery performed cholecystectomy on 05/19/2018 with lysis of adhesions, intraoperative cholangiogram and drain placement - Patient should remain NPO - has drained >175 in the last 24 hrs - Encourage use of incentive spirometer - Encourage OOB ambulation - ID consulted (Dr. Rios) - help appreciated - vancomycin added - f/u vanc trough ordered 05/23 Meds: - Pain controlled with Dilaudid 0.5 mg IVP q3h PRN - Nausea well controlled with Zofran 4 mg IVP q4h PRN - Benadryl 25mg IVP daily prn for itching - Tylenol 650 mg rectally PRN ordered for F temp > 100.4 - IV NS at 150 mls/hr q6h - Leukocytosis treated with Aztreonam 1 gm IVPB qd and Flagyl 500 mg IVPB q8h 2) Pancreatitis, acute - likely secondary to choledocholithiasis - lipase OA 1739 --> 2372 --> 279 --> 718 --> 98 - Patient is NPO for bowel rest - Continue NS at 150 ml/hr - Zofran 4 mg IVP q4h PRN - Dilaudid 0.5 mg Q3 prn 3) Transaminitis - Likely 2/2 Choledocholithiasis - AST - 188 --> 187 --> 130 --> 74 --> 74 --> 25 - ALT - 455 --> 423 --> 327 --> 241 --> 196 --> 119 - T Bili - 2.3 --> 3.9 --> 2.5 --> 2.3 --> 1.9 - Currently downtrending, will continue to monitor 4) Leukocytosis - WBC - 21.8 --> 12.7 --> 10.5 --> 11.8 --> 16 --> 19 - Currently treated with Aztreonam 1 gm IVPB qd and Flagyl 500 mg IVPB q8h - Consult placed to Dr. Rios - UA, Urine cultures and blood cultures ordered 5) Electrolyte Imbalance - Hypokalemia and Hypophosphatemia - Phos - 2.1; K - 3.5 - Mg - 1.7 WNL - Repleted with Potassium Phosphate 20 mmol IVPB - Continue to monitor 6) Hyperlipidemia - Lipid panel - TG - 153 (elevated) - Total Chol - 148 (WNL) - LDL - 92 (WNL) - HDL - 20 (low) - ASCVD Risk - 15.8%; will consider high dose statin on discharge pending LFT trend 7) Hx of HTN - Home ASA 81mg po daily held d/t NPO status/surgery, will continue 48hrs post procedure, pending NPO status - Home Losartan 50 mg po daily held d/t NPO status - Monitor BP 8) Hx of DM - Blood sugar: 355 --> 280 --> 191 --> 159 --> 285 --> 232 - Accucheck q6h - Insulin sliding scale - moderate ordered - Metformin held d/t NPO status/ elevated LFTs - Atorvastatin 20 mg po daily held d/t NPO status/ elevated LFTs 9) Constipation - Resolved - Dulcolax 10mg once 10) Prophylaxis - SCDs and Lovenox 40 mg sc daily - Protonix 40 mg IV qd d/w Dr. Remy Llanes PGY-1 <Jennifer Alberto V - Last Filed: 05/23/18 15:40> Objective - Vital Signs/Intake and Output Vital Signs (last 24 hours): Temp Pulse Resp BP Pulse Ox 98.8 F 78 20 155/79 H 96 05/23/18 00:00 05/23/18 00:00 05/23/18 00:00 05/23/18 00:00 05/23/18 00:00 Intake and Output: 05/23/18 05/23/18 06:59 18:59 Intake Total 1250 1080 Output Total 0 0 Balance 1250 1080 - Medications Medications: Current Medications Acetaminophen (Tylenol 650 Mg Supp) [address] Q6 PRN PRN Reason: Fever >100.4 F Dextrose (Dextrose 50% Inj) 50 ml IVP ONCE PRN PRN Reason: Hypoglycemia Dextrose (Dextrose 50% Inj) 0 ml IV STAT PRN; Protocol PRN Reason: Hypoglycemia Protocol Dextrose (Glutose 15) 0 gm PO ONCE PRN; Protocol PRN Reason: Hypoglycemia Protocol Enoxaparin Sodium (Lovenox) 40 mg SC DAILY [facility]ID Last Admin: 05/23/18 09:37 Dose: 40 mg Glucagon (Glucagen Diagnostic Kit) 0 mg IM STAT PRN; Protocol PRN Reason: Hypoglycemia Protocol Metronidazole (Flagyl) 500 mg in 100 mls @ 100 mls/hr IVPB Q8H [facility] PRN Reason: Protocol Last Admin: 05/23/18 14:12 Dose: 100 mls/hr Dextrose (Dextrose 5% In Water 1000 Ml) 1,000 mls @ 0 mls/hr IV .Q0M PRN; Protocol; Per Protocol PRN Reason: Hypoglycemia Protocol Aztreonam 2 gm/ Sodium (Chloride) 100 mls @ 200 mls/hr IVPB Q8H [facility] PRN Reason: Protocol Last Admin: 05/23/18 11:38 Dose: 200 mls/hr Vancomycin/Sodium Chloride (Vancomycin 1 Gm/Ns 200 Ml) 1 gm in 200 mls @ 133 mls/hr IVPB Q12H [facility] PRN Reason: Protocol Stop: 05/26/18 20:01 Last Admin: 05/23/18 11:14 Dose: 133 mls/hr Sodium Chloride (Sodium Chloride 0.9%) 1,000 mls @ 60 mls/hr IV .[id number] [facility] Last Admin: 05/23/18 11:39 Dose: 60 mls/hr Insulin Aspart (Novolog) 3 unit SC AC [facility] Last Admin: 05/23/18 11:45 Dose: 3 unit Insulin Aspart (Novolog) 0 unit SC ACHS [facility] PRN Reason: Protocol Last Admin: 05/23/18 11:46 Dose: 6 unit Insulin Glargine (Lantus) 5 unit SC HS [facility] Losartan Potassium (Cozaar) 50 mg PO DAILY [facility] Last Admin: 05/23/18 09:36 Dose: 50 mg Ondansetron HCl (Zofran Inj) 4 mg IVP Q6H PRN PRN Reason: Nausea/Vomiting Oxycodone/Acetaminophen (Percocet 5/325 Mg Tab) 1 tab PO Q4H PRN PRN Reason: Pain, moderate (4-7) Stop: 05/26/18 09:54 Pantoprazole Sodium (Protonix Inj) 40 mg IVP DAILY [facility] Last Admin: 05/23/18 09:36 Dose: 40 mg Saccharomyces Boulardii (Florastor) 250 mg PO Q12 [facility] Last Admin: 05/23/18 09:36 Dose: 250 mg Senna/Docusate Sodium (Senokot S 50 Mg-8.6 Mg) 1 tab PO BID [facility] Last Admin: 05/23/18 11:57 Dose: 1 tab Zinc Acetate/Diphenhydramine (Benadryl 1% Zinc Acetate -0.1%) 1 cre TOP DAILY PRN PRN Reason: Itching / Pruritus - Labs Labs: 05/23/18 09:02 09/16/18 09:02 PT 12.9 SECONDS (9.7-12.2) H 05/18/18 07:17 INR 1.2 05/18/18 07:17 APTT 36 SECONDS (21-34) H 05/18/18 07:17 Attending/Attestation - Attestation I have personally seen and examined this patient.: Yes I have fully participated in the care of the patient.: Yes I have reviewed all pertinent clinical information, including history, physical exam and plan: Yes Notes (Text): This is a late computer entry for 05/21/2018. Patient seen, examined, case discussed with veterinary medical officer. Patient reports improvement in abdominal pain except for at the incision site and noted CECY has some bilious fluid, which is less compared to yesterday. However patient's white count continues to uptrend. I have recultured patient including blood cultures, UA and urine culture and consult ID. Patient has been on Aztreonam and Flagyl since before surgery. She is also pending allergic which limits options. Patient to remain nothing by mouth per surgery we'll continue to follow. Assessment/Plan 1) Leukocytosis Assessment/Plan * patient is postoperative day 2: lysis of adhesions, cholecystectomy, intraoperative cholangiogram explosion of common bile duct * order for blood cultures, UA, urine culture * Infectious disease consult * Patient is currently on IV antibiotic * Patient has been encourage incentive spirometer 2) Choledocholithiasis Cholelithiasis Assessment/Plan * GI (Dr. Turcios covering Dr. López who was psychologist personnel 05/16/18) and Dr. Bradley ( covering Dr. Turcios given holiday) * General surgery (Dr. Marshall) on case * going for surgery with exploration of the CBD 05/19/18 * preoperative/intraoperative/postoperative per surgery * 05/19/18: lysis of adhesions, cholecystectomy, intraoperative cholangiogram explosion of common bile duct * Patient underwent ERCP with stent, recommended for surgery given gallstones, cbd dilation, unable to visualize cyst duct * CT abdomen/pelvis (05/16/2018) - Cholelithiasis with a contracted distorted gallbladder. Slightly thickened indurated gallbladder wall with some infiltration in the adjacent mesenteries suggesting acute cholecystitis. There is choledocholithiasis with dilatation of the CBD and intrahepatic biliary ductal dilatation * CXR (05/17/2018) - Poor inspiration with low lung volumes, crowded bronchovascular markings and minor bibasilar atelectasis * Abdominal Ultrasound (05/17/2018) - Mild hepatomegaly. Diffuse increased echogenicity in the liver may reflect hepatic steatosis however parenchymal infectious/inflammatory etiologies cannot be excluded. Cholelithiasis, mild diffuse dilation of the common bile duct without evidence for choledocholithiasis. * ERCP (05/17/18) - biliary stent placed. full report pending * MRCP (05/17/18): gallbladder appears compressed containing gallstones. Dilated common bile duct measuring approximately 8mm in diameter. Abrupt distal taper. tiny filling defect within the mid CBD measures ~5mm. Mild intrahepatic biliary fuctal dilatation. * EKG (05/17/2018): NSR * Elevated bilirubin, and transaminitis * Pain PRN: Morphine 4 mg q4h PRN * Nausea PRN: well controlled with Zofran 4 mg IVP q4h PRN, Reglan 5mg IVP q6h prn * Tylenol 650 mg rectally prn ordered for F temp > 100.4 * IV abx:Aztreonam 1 gm IVPB q8H and Flagyl 500 mg IVPB q8h 3) Pancreatitis, Gallstone Assessment/Plan * likely secondary to cholelithiasis * lipase OA 1739 * Patient is NPO for bowel rest * GI and general surgery on board * patient is on IV fluid 4) Hx of HTN Assessment/Plan * Home ASA 81mg po daily held d/t NPO status * Home Losartan 50 mg po daily held d/t NPO status * Monitor BP 5) Hx of DM Assessment/Plan * a1c: 8.8 * Lipid panel: T, chol: 148, LDL: 92, HDL: 20 * Accucheck q6h * Insulin sliding scale - moderate ordered * Metformin held d/t NPO status * Atorvastatin 20 mg po daily held d/t NPO status * hypoglycemic protocol 6) Transaminitis Assessment/Plan * monitor 7) Prophylaxis * SCDs * Protonix 40 mg IV qd * surgery has resumed chemical anticoagulation post surgery * On IV fluids Disposition: Patient is postoperative day 2 of lysis of adhesions, cholecystectomy, intraoperative cholangiogram explosion of common bile duct. postoperative management per surgery. He will continue to monitor LFTs, bilirubin. patient had a rise in white count. Recultured and obtain ID consult.
--- NOTE | 2018-05-21 08:16 | CP.PCM.PN ---
Subjective - Date & Time of Evaluation Date of Evaluation: 05/21/18 Time of Evaluation: 08:05 - Subjective Subjective: F/u abdom pain. Sl cough Family present Denies fever, chills, SZ, CP, RB, melena, MCKEON Objective - Vital Signs/Intake and Output Vital Signs (last 24 hours): Temp Pulse Resp BP Pulse Ox 99.2 F 95 H 20 150/75 96 05/21/18 00:00 05/21/18 00:00 05/21/18 00:00 05/21/18 00:00 05/21/18 00:00 Intake and Output: 05/21/18 05/21/18 06:59 18:59 Intake Total 2400 Output Total 270 Balance 2130 - Medications Medications: Current Medications Acetaminophen (Tylenol 650 Mg Supp) 650 mg [place] Q6 PRN PRN Reason: Fever >100.4 F Dextrose (Dextrose 50% Inj) 50 ml IVP ONCE PRN PRN Reason: Hypoglycemia Dextrose (Dextrose 50% Inj) 0 ml IV STAT PRN; Protocol PRN Reason: Hypoglycemia Protocol Dextrose (Glutose 15) 0 gm PO ONCE PRN; Protocol PRN Reason: Hypoglycemia Protocol Enoxaparin Sodium (Lovenox) 40 mg SC DAILY [facility] Last Admin: 05/20/18 11:19 Dose: 40 mg Glucagon (Glucagen Diagnostic Kit) 0 mg IM STAT PRN; Protocol PRN Reason: Hypoglycemia Protocol Hydromorphone HCl (Dilaudid) 0.5 mg IVP Q3H PRN PRN Reason: Pain, moderate (4-7) Last Admin: 05/20/18 18:35 Dose: 0.5 mg Aztreonam 1 gm/ Sodium (Chloride) 100 mls @ 100 mls/hr IVPB Q8H [facility] PRN Reason: Protocol Last Admin: 05/21/18 02:03 Dose: 100 mls/hr Metronidazole (Flagyl) 500 mg in 100 mls @ 100 mls/hr IVPB Q8H [facility] PRN Reason: Protocol Last Admin: 05/21/18 06:52 Dose: 100 mls/hr Dextrose (Dextrose 5% In Water 1000 Ml) 1,000 mls @ 0 mls/hr IV .Q0M PRN; Protocol; Per Protocol PRN Reason: Hypoglycemia Protocol Sodium Chloride (Sodium Chloride 0.9%) 1,000 mls @ 150 mls/hr IV .Q6H40M [facility] Last Admin: 05/21/18 06:46 Dose: 150 mls/hr Insulin Human Regular (Novolin R) 0 unit SC Q6H [facility] PRN Reason: Protocol Last Admin: 05/21/18 06:03 Dose: Not Given Losartan Potassium (Cozaar) 50 mg PO DAILY [facility] Last Admin: 05/20/18 11:15 Dose: Not Given Ondansetron HCl (Zofran Inj) 4 mg IVP Q6H PRN PRN Reason: Nausea/Vomiting Pantoprazole Sodium (Protonix Inj) 40 mg IVP DAILY [facility] Last Admin: 05/20/18 11:55 Dose: 40 mg Saccharomyces Boulardii (Florastor) 250 mg PO Q12 [facility] Last Admin: 05/20/18 21:38 Dose: 250 mg Zinc Acetate/Diphenhydramine (Benadryl 1% Zinc Acetate -0.1%) 1 cre TOP DAILY PRN PRN Reason: Itching / Pruritus - Labs Labs: 05/20/18 06:43 05/20/18 06:43 PT 12.9 SECONDS (9.7-12.2) H 05/18/18 07:17 INR 1.2 05/18/18 07:17 APTT 36 SECONDS (21-34) H 05/18/18 07:17 - Constitutional Appears: Well - Respiratory Exam Respiratory Exam: Clear to Ausculation Bilateral - Cardiovascular Exam Cardiovascular Exam: RRR - GI/Abdominal Exam GI & Abdominal Exam: Soft, Tenderness, Normal Bowel Sounds. absent: Guarding, Mass, Rebound - Neurological Exam Neurological Exam: Alert, Oriented x3 Assessment and Plan (1) Pancreatitis Assessment & Plan: s/p ERCP and stent s/p GB surgery/exploration. REc- f/u CBC, LFTs Status: Acute
[2018-05-21 08:43] LABS: BASO # 0.1 K/uL (0.0-0.2); BASO % 0.6 % (0.0-2.0); EOS # 0.1 K/uL (0.0-0.7); EOS % 0.3 % (0.0-4.0); LYMPH # 1.6 K/uL (1.0-4.3); LYMPH % 8.6 % (20.0-40.0); MEAN CELL VOLUME 74.6 fL (81.0-99.0); MEAN CORPUSCULAR HEMOGLOBIN 25.7 pg (27.0-31.0); MEAN CORPUSCULAR HGB CONC 34.4 g/dL (33.0-37.0); MEAN PLATELET VOLUME 8.5 fL (7.2-11.7); MONO # 1.1 K/uL (0.0-0.8); MONO % 5.7 % (0.0-10.0); NEUT # 16.2 K/uL (1.8-7.0); NEUT % 84.8 % (50.0-75.0); NRBC % 0.1 % (0.0-2.0); PLATELET COUNT 625 K/uL (130-400); RED CELL DISTRIBUTION WIDTH 15.6 % (11.5-14.5); WHITE BLOOD COUNT 19.1 K/uL (4.8-10.8)
[2018-05-21 09:24] LABS: ALBUMIN 3.2 g/dL (3.5-5.0); ALT/SGPT 119 U/L (9-52); AST/SGOT 25 U/L (14-36); BLOOD UREA NITROGEN 5 mg/dL (7-17); CALCIUM 9.2 mg/dl (8.6-10.4); GFR NON-AFRICAN AMERICAN > 60; LIPASE 98 U/L (23-300)
--- NOTE | 2018-05-21 09:27 | CP.PCM.PN ---
Subjective - Date & Time of Evaluation Date of Evaluation: 05/21/18 Time of Evaluation: 09:24 - Subjective Subjective: Surgery Pt seen and examined. No acute events. Denies fever, nausea, vomiting. Pain controlled. Drain in place. Objective - Vital Signs/Intake and Output Vital Signs (last 24 hours): Temp Pulse Resp BP Pulse Ox 99.1 F 95 H 20 154/67 H 97 05/21/18 08:54 05/21/18 08:54 05/21/18 08:54 05/21/18 08:54 05/21/18 08:54 Intake and Output: 05/21/18 05/21/18 06:59 18:59 Intake Total 2400 Output Total 270 Balance 2130 - Medications Medications: Current Medications Acetaminophen (Tylenol 650 Mg Supp) 650 mg [place] Q6 PRN PRN Reason: Fever >100.4 F Dextrose (Dextrose 50% Inj) 50 ml IVP ONCE PRN PRN Reason: Hypoglycemia Dextrose (Dextrose 50% Inj) 0 ml IV STAT PRN; Protocol PRN Reason: Hypoglycemia Protocol Dextrose (Glutose 15) 0 gm PO ONCE PRN; Protocol PRN Reason: Hypoglycemia Protocol Enoxaparin Sodium (Lovenox) 40 mg SC DAILY [facility] Last Admin: 05/20/18 11:19 Dose: 40 mg Glucagon (Glucagen Diagnostic Kit) 0 mg IM STAT PRN; Protocol PRN Reason: Hypoglycemia Protocol Hydromorphone HCl (Dilaudid) 0.5 mg IVP Q3H PRN PRN Reason: Pain, moderate (4-7) Last Admin: 05/20/18 18:35 Dose: 0.5 mg Aztreonam 1 gm/ Sodium (Chloride) 100 mls @ 100 mls/hr IVPB Q8H [facility] PRN Reason: Protocol Last Admin: 05/21/18 02:03 Dose: 100 mls/hr Metronidazole (Flagyl) 500 mg in 100 mls @ 100 mls/hr IVPB Q8H [facility] PRN Reason: Protocol Last Admin: 05/21/18 06:52 Dose: 100 mls/hr Dextrose (Dextrose 5% In Water 1000 Ml) 1,000 mls @ 0 mls/hr IV .Q0M PRN; Protocol; Per Protocol PRN Reason: Hypoglycemia Protocol Dextrose/Sodium Chloride (Dextrose 5%/0.45% Ns 1000 Ml) 1,000 mls @ 150 mls/hr IV .Q6H40M [facility] Insulin Human Regular (Novolin R) 0 unit SC Q6H [facility] PRN Reason: Protocol Last Admin: 05/21/18 06:03 Dose: Not Given Losartan Potassium (Cozaar) 50 mg PO DAILY [facility] Last Admin: 05/20/18 11:15 Dose: Not Given Ondansetron HCl (Zofran Inj) 4 mg IVP Q6H PRN PRN Reason: Nausea/Vomiting Pantoprazole Sodium (Protonix Inj) 40 mg IVP DAILY [facility] Last Admin: 05/20/18 11:55 Dose: 40 mg Saccharomyces Boulardii (Florastor) 250 mg PO Q12 [facility] Last Admin: 05/20/18 21:38 Dose: 250 mg Zinc Acetate/Diphenhydramine (Benadryl 1% Zinc Acetate -0.1%) 1 cre TOP DAILY PRN PRN Reason: Itching / Pruritus - Labs Labs: 05/21/18 08:34 05/20/18 06:43 PT 12.9 SECONDS (9.7-12.2) H 05/18/18 07:17 INR 1.2 05/18/18 07:17 APTT 36 SECONDS (21-34) H 05/18/18 07:17 - Constitutional Appears: No Acute Distress - Head Exam Head Exam: ATRAUMATIC, NORMAL INSPECTION, NORMOCEPHALIC - Eye Exam Eye Exam: EOMI, Normal appearance, PERRL. absent: Scleral icterus Pupil Exam: NORMAL ACCOMODATION, PERRL - ENT Exam ENT Exam: Mucous Membranes Moist - Neck Exam Neck Exam: Full ROM, Normal Inspection. absent: Lymphadenopathy - Respiratory Exam Respiratory Exam: NORMAL BREATHING PATTERN - Cardiovascular Exam Cardiovascular Exam: REGULAR RHYTHM, +S1, +S2. absent: Murmur - GI/Abdominal Exam GI & Abdominal Exam: Soft, Tenderness. absent: Distended, Firm, Rigid Additional comments: Dressing C/D/I. drain biliuos output 270/24hrs. - Extremities Exam Extremities Exam: Full ROM, Normal Capillary Refill, Normal Inspection. absent : Joint Swelling, Pedal Edema - Back Exam Back Exam: NORMAL INSPECTION - Neurological Exam Neurological Exam: Alert, Awake, CN II-XII Intact, Normal Gait, Oriented x3 - Psychiatric Exam Psychiatric exam: Normal Affect, Normal Mood - Skin Skin Exam: Dry, Intact, Normal Color, Warm Assessment and Plan - Assessment and Plan (Free Text) Assessment: 62F with choledocholithiasis and gallstone pancreatitis s/p CBD exploration POD2 Drain 270cc/24hrs bilious Plan: Remain NPO Strict I&O's IVF C/w ABx C/w analgesics C/w anti-emetics Trend LFT's Encourage incentive spirometer use OOB to chair Encourage Ambulation PT DVT ppx D/w Dr. Marshall
[2018-05-21 09:31] LABS: ANISOCYTOSIS SLIGHT; BANDS 1 % (0-2); EOSINOPHIL 2 % (0-4); HYPOCHROMIC SLIGHT; LYMPHOCYTE 12 % (20-40); MONOCYTE 2 % (0-10); NEUTROPHIL 83 % (50-75); PLATELET ESTIMATE INCREASED (NORMAL); POIKILOCYTOSIS SLIGHT; TOTAL CELLS COUNTED 100
[2018-05-21 09:32] LABS: LARGE PLATELETS PRESENT; TARGET CELLS SLIGHT
[2018-05-21] MEDS: Enoxaparin 40 mg Syringe SC SCH (09:55)
[2018-05-21] MEDS: Dextrose 5%/0.45% NS 1,000 ML IV SCH ×3 (09:56→22:49)
[2018-05-21] MEDS: Saccharomyces Boulardi 250 mg Cap PO SCH ×2 (10:05→22:14)
[2018-05-21] MEDS ORDERED: Potassium Phosphate 30 MMOLE in Sodium Chloride 0.9% 250 ML IVPB ONE (10:30)
[2018-05-21] MEDS ORDERED: Aztreonam 2 GM in Sodium Chloride 0.9% 100 ML IVPB SCH (18:45)
--- NOTE | 2018-05-21 18:46 | CP.PCM.CON ---
History of Present Illness - History of Present Illness History of Present Illness: 62F presented w/ chief complaint of sharp RUQ pain. CT showed distended CBD with intra-ductal choledocholithiasis and resultant dilation of both intra- hepatic and extra-hepatic ducts. Underwent cholecystectomy Post op having leukocytosis On azactam and flagyl ? allergy to Penicillin PMHx: HTN, Diabetes PSHx: open unilateral oopherectomy and possibly myomectomy (pt unclear) Allergies: Penicllin (Dizziness) Review of Systems - Review of Systems All systems: reviewed and no additional remarkable complaints except - Constitutional Constitutional: As Per HPI - EENT Eyes: absent: As Per HPI, Blind Spots, Blurred Vision, Change in Vision, Decreased Night Vision, Diplopia, Discharge, Dry Eye, Exophthalmos, Floaters, Irritation, Itchy Eyes, Loss of Peripheral Vision, Pain, Photophobia, Requires Corrective Lenses, Sees Flashes, Spots in Vision, Tunnel Vision, Other Visual Disturbances, Loss of Vision, Other Ears: absent: As Per HPI, Decreased Hearing, Ear Discharge, Ear Pain, Tinnitus, Abnormal Hearing, Disequilibrium, Dizziness, Other Nose/Mouth/Throat: absent: As Per HPI, Epistaxis, Nasal Congestion, Nasal Discharge, Nasal Obstruction, Nasal Trauma, Nose Pain, Post Nasal Drip, Sinus Pain, Sinus Pressure, Bleeding Gums, Change in Voice, Dental Pain, Dry Mouth, Dysphagia, Halitosis, Hoarsness, Lip Swelling, Mouth Lesions, Mouth Pain, Odynophagia, Sore Throat, Throat Swelling, Tongue Swelling, Facial Pain, Neck Pain, Neck Mass, Other - Cardiovascular Cardiovascular: absent: As Per HPI, Acrocyanosis, Chest Pain, Chest Pain at Rest , Chest Pain with Activity, Claudication, Diaphoresis, Dyspnea, Dyspnea on Exertion, Edema, Irregular Heart Rhythm, Pain Radiating to Arm/Neck/Jaw, Leg Edema, Leg Ulcers, Lightheadedness, Orthopnea, Palpitations, Paroxysmal Nocturnal Dyspnea, Pedal Edema, Radiating Pain, Rapid Heart Rate, Slow Heart Rate, Syncope, Other - Respiratory Respiratory: absent: As Per HPI, Cough, Dyspnea, Hemoptysis, Dyspnea on Exertion , Wheezing, Snoring, Stridor, Pain on Inspiration, Chest Congestion, Excessive Mucous Production, Change in Mucous Color, Pain with Coughing, Other - Gastrointestinal Gastrointestinal: As Per HPI Past Patient History - Past Medical History & Family History Past Medical History?: Yes - Past Social History Smoking Status: Never Smoked - CARDIAC Hx Hypertension: Yes - ENDOCRINE/METABOLIC Hx Diabetes Mellitus Type 2: Yes - MUSCULOSKELETAL/RHEUMATOLOGICAL Hx Falls: No - PSYCHIATRIC Hx Substance Use: No Meds Allergies/Adverse Reactions: Allergies Allergy/AdvReac Type Severity Reaction Status Date / Time No Known Allergies Allergy Verified 05/16/18 15:11 - Medications Medications: Current Medications Acetaminophen (Tylenol 650 Mg Supp) 650 mg [place] Q6 PRN PRN Reason: Fever >100.4 F Dextrose (Dextrose 50% Inj) 50 ml IVP ONCE PRN PRN Reason: Hypoglycemia Dextrose (Dextrose 50% Inj) 0 ml IV STAT PRN; Protocol PRN Reason: Hypoglycemia Protocol Dextrose (Glutose 15) 0 gm PO ONCE PRN; Protocol PRN Reason: Hypoglycemia Protocol Enoxaparin Sodium (Lovenox) 40 mg SC DAILY PENDING SALE TO [facility] Last Admin: 05/21/18 09:55 Dose: 40 mg Glucagon (Glucagen Diagnostic Kit) 0 mg IM STAT PRN; Protocol PRN Reason: Hypoglycemia Protocol Hydromorphone HCl (Dilaudid) 0.5 mg IVP Q3H PRN PRN Reason: Pain, moderate (4-7) Last Admin: 05/20/18 18:35 Dose: 0.5 mg Metronidazole (Flagyl) 500 mg in 100 mls @ 100 mls/hr IVPB Q8H PENDING SALE TO [facility] PRN Reason: Protocol Last Admin: 05/21/18 14:18 Dose: 100 mls/hr Dextrose (Dextrose 5% In Water 1000 Ml) 1,000 mls @ 0 mls/hr IV .Q0M PRN; Protocol; Per Protocol PRN Reason: Hypoglycemia Protocol Dextrose/Sodium Chloride (Dextrose 5%/0.45% Ns 1000 Ml) 1,000 mls @ 150 mls/hr IV .Q6H40M PENDING SALE TO [facility] Last Admin: 05/21/18 17:03 Dose: Not Given Aztreonam 2 gm/ Sodium (Chloride) 100 mls @ 200 mls/hr IVPB Q8H PENDING SALE TO [facility] PRN Reason: Protocol Insulin Human Regular (Novolin R) 0 unit SC Q6H DAVID PRN Reason: Protocol Last Admin: 05/21/18 18:21 Dose: 6 units Losartan Potassium (Cozaar) 50 mg PO DAILY PENDING SALE TO [facility] Last Admin: 05/21/18 10:05 Dose: Not Given Ondansetron HCl (Zofran Inj) 4 mg IVP Q6H PRN PRN Reason: Nausea/Vomiting Pantoprazole Sodium (Protonix Inj) 40 mg IVP DAILY PENDING SALE TO [facility] Last Admin: 05/21/18 09:55 Dose: 40 mg Saccharomyces Boulardii (Florastor) 250 mg PO Q12 PENDING SALE TO [facility] Last Admin: 05/21/18 10:05 Dose: Not Given Zinc Acetate/Diphenhydramine (Benadryl 1% Zinc Acetate -0.1%) 1 cre TOP DAILY PRN PRN Reason: Itching / Pruritus Physical Exam - Constitutional Appears: No Acute Distress - Head Exam Head Exam: ATRAUMATIC - Eye Exam Eye Exam: absent: Scleral icterus - ENT Exam ENT Exam: Mucous Membranes Dry - Neck Exam Neck exam: Negative for: Lymphadenopathy - Respiratory Exam Respiratory Exam: Decreased Breath Sounds, Clear to Auscultation Bilateral - Cardiovascular Exam Cardiovascular Exam: REGULAR RHYTHM, +S1, +S2 - GI/Abdominal Exam GI & Abdominal Exam: Diminished Bowel Sounds, Distended, Guarding, Soft, Tenderness. absent: Rebound, Rigid Additional comments: ruq drain in place - Rectal Exam Rectal Exam: Deferred - Exam Exam: NORMAL INSPECTION - Extremities Exam Extremities exam: Positive for: pedal pulses present. Negative for: calf tenderness, pedal edema, tenderness - Back Exam Back exam: absent: CVA tenderness (L), CVA tenderness (R), paraspinal tenderness - Neurological Exam Neurological exam: Alert, CN II-XII Intact, Oriented x3, Reflexes Normal - Psychiatric Exam Psychiatric exam: Normal Mood - Skin Skin Exam: Dry Results - Vital Signs Recent Vital Signs: Last Vital Signs Temp 99.2 F 05/21/18 15:00 Pulse 88 05/21/18 15:00 Resp 20 05/21/18 15:00 BP 152/78 H 05/21/18 15:00 Pulse Ox 97 05/21/18 15:00 - Labs Result Diagrams: 05/21/18 08:34 05/21/18 08:34 Labs: Laboratory Results - last 24 hr 05/21/18 05/21/18 05/21/18 00:20 05:54 08:34 WBC 19.1 H RBC 4.30 Hgb 11.0 Hct 32.1 L MCV 74.6 L MCH 25.7 L MCHC 34.4 RDW 15.6 H Plt Count 625 H MPV 8.5 Neut % (Auto) 84.8 H Lymph % (Auto) 8.6 L [place] % (Auto) 5.7 Eos % (Auto) 0.3 Baso % (Auto) 0.6 Neut # (Auto) 16.2 H Lymph # (Auto) 1.6 [place] # (Auto) 1.1 H Eos # (Auto) 0.1 Baso # (Auto) 0.1 Neutrophils % (Manual) 83 H Band Neutrophils % 1 Lymphocytes % (Manual) 12 L Monocytes % (Manual) 2 Eosinophils % (Manual) 2 Platelet Estimate Increased H Large Platelets Present Hypochromasia (manual) Slight Poikilocytosis (manual Slight Anisocytosis (manual) Slight Target Cells Slight Sodium Potassium Chloride Carbon Dioxide Anion Gap BUN Creatinine Est GFR ( Amer) Est GFR (Non-Af Amer) POC Glucose (mg/dL) 251 H 228 H Random Glucose Calcium Phosphorus Magnesium Total Bilirubin AST ALT Alkaline Phosphatase Total Protein Albumin Globulin Albumin/Globulin Ratio Lipase 05/21/18 05/21/18 05/21/18 08:34 11:50 17:56 WBC RBC Hgb Hct MCV MCH MCHC RDW Plt Count MPV Neut % (Auto) Lymph % (Auto) [place] % (Auto) Eos % (Auto) Baso % (Auto) Neut # (Auto) Lymph # (Auto) [place] # (Auto) Eos # (Auto) Baso # (Auto) Neutrophils % (Manual) Band Neutrophils % Lymphocytes % (Manual) Monocytes % (Manual) Eosinophils % (Manual) Platelet Estimate Large Platelets Hypochromasia (manual) Poikilocytosis (manual Anisocytosis (manual) Target Cells Sodium 139 Potassium 3.5 L Chloride 102 Carbon Dioxide 25 Anion Gap 15 BUN 5 L Creatinine 0.5 L Est GFR ( Amer) > 60 Est GFR (Non-Af Amer) > 60 POC Glucose (mg/dL) 260 H 305 H Random Glucose 232 H Calcium 9.2 Phosphorus 2.1 L Magnesium 1.7 Total Bilirubin 1.9 H AST 25 ALT 119 H D Alkaline Phosphatase 219 H Total Protein 6.3 Albumin 3.2 L Globulin 3.1 Albumin/Globulin Ratio 1.0 Lipase 98 Assessment & Plan - Assessment and Plan (Free Text) Assessment: s/po cholecystectomy for cholecystitis, gallstone pancreatitis ? allergy to PCN On flagyl / azactam add Vanco for Gram + coverage
[2018-05-21] MEDS: Vancomycin 1 gm/NS 200 ml 1 GM/200 ML BAG IVPB SCH (20:00)
[2018-05-21 21:21] LABS: SQUAMOUS EPITHIAL 2 /hpf (0-5); URINE BACTERIA RARE (<OCC); URINE BILIRUBIN NEGATIVE (NEGATIVE); URINE BLOOD NEGATIVE (NEGATIVE); URINE CLARITY Clear (Clear); URINE COLOR Amber (YELLOW); URINE GLUCOSE (UA) 3+ mg/dL (Normal); URINE LEUKOCYTE ESTERASE NEG Leu/uL (Negative); URINE PROTEIN NEGATIVE (NEGATIVE); URINE UROBILINOGEN NORMAL mg/dL (0.2-1.0)
[2018-05-22] MEDS: (Novolin R) Insulin Human Regular 100 units/ml vial SC SCH ×5 (00:32→22:19)
[2018-05-22] MEDS: Aztreonam 2 GM in Sodium Chloride 0.9% 100 ML IVPB SCH ×3 (01:46→19:12)
--- NOTE | 2018-05-22 03:41 | CP.PCM.PN ---
Addendum entered and electronically signed by Guillaume Oh DO 05/22/18 14: 40: PGY1 Addendum to Progress Note 05/22: CMP revealed POC glucose of 321 at 11:19 this morning. Patient was started on HIGH dose insulin sliding scale SC ACHS. Blood cultures and urine cultures pending. Original Note: <Jose Castillo - Last Filed: 05/22/18 06:52> Subjective - Date & Time of Evaluation Date of Evaluation: 05/22/18 Time of Evaluation: 03:39 - Subjective Subjective: PGY-[address] Alberto Patient seen and examined at bedside today with family present in no acute distress. Patient is s/p cholecystectomy POD #3. She notes her abdominal pain in the RUQ over her surgical site is present only with application of pressure. She does state that she has been having a productive cough with clear sputum, as well as some subjective fevers. She has been able to walk with assistance from her family and has been urinating comfortably. She has been passing gas but has not had a BM since the procedure. Otherwise, she denies chest pain, palpitations, nausea, vomiting, diarrhea, constipation, shortness of breath, pain with deep inspiration, or hearing/vision changes. Objective - Vital Signs/Intake and Output Vital Signs (last 24 hours): Temp Pulse Resp BP Pulse Ox 98.6 F 86 20 150/83 97 05/22/18 00:00 05/22/18 00:00 05/22/18 00:00 05/22/18 00:00 05/22/18 00:00 Intake and Output: 05/21/18 05/22/18 18:59 06:59 Intake Total 22 1200 Output Total 20 Balance 22 1180 - Medications Medications: Current Medications Acetaminophen (Tylenol 650 Mg Supp) 650 mg SC Q6 PRN PRN Reason: Fever >100.4 F Dextrose (Dextrose 50% Inj) 50 ml IVP ONCE PRN PRN Reason: Hypoglycemia Dextrose (Dextrose 50% Inj) 0 ml IV STAT PRN; Protocol PRN Reason: Hypoglycemia Protocol Dextrose (Glutose 15) 0 gm PO ONCE PRN; Protocol PRN Reason: Hypoglycemia Protocol Enoxaparin Sodium (Lovenox) 40 mg SC DAILY [facility]ID Last Admin: 05/21/18 09:55 Dose: 40 mg Glucagon (Glucagen Diagnostic Kit) 0 mg IM STAT PRN; Protocol PRN Reason: Hypoglycemia Protocol Hydromorphone HCl (Dilaudid) 0.5 mg IVP Q3H PRN PRN Reason: Pain, moderate (4-7) Last Admin: 05/20/18 18:35 Dose: 0.5 mg Metronidazole (Flagyl) 500 mg in 100 mls @ 100 mls/hr IVPB Q8H [facility]ID PRN Reason: Protocol Last Admin: 05/21/18 22:13 Dose: 100 mls/hr Dextrose (Dextrose 5% In Water 1000 Ml) 1,000 mls @ 0 mls/hr IV .Q0M PRN; Protocol; Per Protocol PRN Reason: Hypoglycemia Protocol Dextrose/Sodium Chloride (Dextrose 5%/0.45% Ns 1000 Ml) 1,000 mls @ 150 mls/hr IV .Q6H40M [facility] Last Admin: 05/21/18 22:49 Dose: Not Given Aztreonam 2 gm/ Sodium (Chloride) 100 mls @ 200 mls/hr IVPB Q8H DAVID PRN Reason: Protocol Last Admin: 05/22/18 01:46 Dose: 200 mls/hr Vancomycin/Sodium Chloride (Vancomycin 1 Gm/Ns 200 Ml) 1 gm in 200 mls @ 133 mls/hr IVPB Q12H [facility]ID PRN Reason: Protocol Stop: 05/26/18 20:01 Last Admin: 05/21/18 20:00 Dose: 133 mls/hr Insulin Human Regular (Novolin R) 0 unit SC Q6H [facility]ID PRN Reason: Protocol Last Admin: 05/22/18 00:32 Dose: Not Given Losartan Potassium (Cozaar) 50 mg PO DAILY [facility] Last Admin: 05/21/18 10:05 Dose: Not Given Ondansetron HCl (Zofran Inj) 4 mg IVP Q6H PRN PRN Reason: Nausea/Vomiting Pantoprazole Sodium (Protonix Inj) 40 mg IVP DAILY [facility] Last Admin: 05/21/18 09:55 Dose: 40 mg Saccharomyces Boulardii (Florastor) 250 mg PO Q12 [facility] Last Admin: 05/21/18 22:14 Dose: 250 mg Zinc Acetate/Diphenhydramine (Benadryl 1% Zinc Acetate -0.1%) 1 cre TOP DAILY PRN PRN Reason: Itching / Pruritus - Labs Labs: 05/21/18 08:34 05/21/18 08:34 PT 12.9 SECONDS (9.7-12.2) H 05/18/18 07:17 INR 1.2 05/18/18 07:17 APTT 36 SECONDS (21-34) H 05/18/18 07:17 - Head Exam Head Exam: ATRAUMATIC, NORMAL INSPECTION, NORMOCEPHALIC - Eye Exam Eye Exam: EOMI, Normal appearance, PERRL. absent: Scleral icterus - ENT Exam ENT Exam: Mucous Membranes Moist, Normal External Ear Exam Additional comments: Jaundice noted to the posterior pharynx and inferior to the tongue - Neck Exam Neck Exam: Full ROM. absent: Tenderness - Respiratory Exam Respiratory Exam: Clear to Ausculation Bilateral, NORMAL BREATHING PATTERN. absent: Rales, Rhonchi, Wheezes - Cardiovascular Exam Cardiovascular Exam: +S1, +S2. absent: Gallop, Murmur - GI/Abdominal Exam GI & Abdominal Exam: Soft, Normal Bowel Sounds. absent: Distended, Firm, Guarding Additional comments: Mild tenderness to the RUQ and epigastrium, No tenderness over the LUQ, surgical dressings CDI overlying RUQ surgical site, Florentin drain in place draining dark nonturbulent bilious fluid - Extremities Exam Extremities Exam: Full ROM, Normal Inspection. absent: Pedal Edema, Tenderness - Neurological Exam Neurological Exam: Alert, Awake, Oriented x3 - Skin Skin Exam: Intact, Warm Additional comments: 1x1cm healing area of erythema to the right first digit proximal to the lateral n Assessment and Plan - Assessment and Plan (Free Text) Assessment: Assessment: 62 year old female with PMHx of HTN and DM admitted for choledocholithiasis and and pancreatitis, who is POD #3 s/p cholecystectomy Plan: 1) Choledocholithiasis Imaging: - CT abdomen/pelvis (05/16/2018) - Cholelithiasis with a contracted distorted gallbladder. Slightly thickened indurated gallbladder wall with some infiltration in the adjacent mesenteries suggesting acute cholecystitis. There is choledocholithiasis with dilatation of the CBD and intrahepatic biliary ductal dilatation - CXR (05/17/2018) - Poor inspiration with low lung volumes, crowded bronchovascular markings and minor bibasilar atelectasis - Abdominal Ultrasound (05/17/2018) - Mild hepatomegaly. Diffuse increased echogenicity in the liver may reflect hepatic steatosis however parenchymal infectious/inflammatory etiologies cannot be excluded. Cholelithiasis, mild diffuse dilation of the common bile duct without evidence for choledocholithiasis. - ERCP (05/17/18) - 1 ml omnipaque biliary stent placed - EKG (05/17/2018) - Normal Sinus Rhythm at 78, normal axis deviation, normal R wave progression, no acute STT changes - MRCP (05/17/2018) - dilated common bile duct measuring approximately 8 mm in diameter. Tiny filling defect within the mid CBD measuring approximately 5 mm; possibly calculus. Mild intrahepatic biliary duct dilation. - PA and Lateral CXR (05/18/2018) - No active disease Labs: - Labs reviewed: - Lipase - 1739 (OA) --> 2372 --> 279 --> 718 --> 98 - Amylase - 275 (OA) --> 138 - AST - 188 --> 187 --> 130 --> 74 --> 74 --> 25 - ALT - 455 --> 423 --> 327 --> 241 --> 196 --> 119 - T Bili - 2.3 --> 3.9 --> 2.5 --> 2.3 --> 1.9 - WBC - 21.8 --> 12.7 --> 10.5 --> 11.8 --> 16 --> 19 - Alk Phos - 364 --> 333 --> 338 --> 350 --> 273 --> 219 - UA/Urine Tox - Negative - AFP - 3.3 (WNL), CA 19-9 - 159 (elevated), CEA - 1.8 (WNL) - PT - 12.2 --> 12.9, INR - 1.1 --> 1.1, PTT - 35 --> 36 - A1c - 8.1 (elevated) - sugars have been well controlled this admission on ISS moderate - TG - 153 (elevated), Total Chol - 148 (WNL), LDL - 92 (WNL), HDL - 20 (low) Consults: - Surgery consulted (Dr. Marshall) - help appreciated - GI consult placed to Dr. López (Dr. Kirk pimentel) - help appreciated - Surgery performed cholecystectomy on 05/19/2018 with lysis of adhesions, intraoperative cholangiogram and drain placement - Patient should remain NPO - has drained >175 in the last 24 hrs - Encourage use of incentive spirometer - Encourage OOB ambulation - ID consulted (Dr. Rios) - help appreciated - vancomycin added - f/u vanc trough ordered 05/23 Meds: - Pain controlled with Dilaudid 0.5 mg IVP q3h PRN - Nausea well controlled with Zofran 4 mg IVP q4h PRN - Benadryl 25mg IVP daily prn for itching - Tylenol 650 mg rectally PRN ordered for F temp > 100.4 - IV NS at 150 mls/hr q6h - Leukocytosis treated with Aztreonam 1 gm IVPB qd and Flagyl 500 mg IVPB q8h 2) Pancreatitis, acute - likely secondary to choledocholithiasis - lipase OA 1739 --> 2372 --> 279 --> 718 --> 98 - Patient is NPO for bowel rest - Continue NS at 150 ml/hr - Zofran 4 mg IVP q4h PRN - Dilaudid 0.5 mg Q3 prn 3) Transaminitis - Likely 2/2 Choledocholithiasis - AST - 188 --> 187 --> 130 --> 74 --> 74 --> 25 - ALT - 455 --> 423 --> 327 --> 241 --> 196 --> 119 - T Bili - 2.3 --> 3.9 --> 2.5 --> 2.3 --> 1.9 - Currently downtrending, will continue to monitor 4) Leukocytosis - WBC - 21.8 --> 12.7 --> 10.5 --> 11.8 --> 16 --> 19 - Currently treated with Aztreonam 1 gm IVPB qd and Flagyl 500 mg IVPB q8h - Consult placed to Dr. Rios - UA, Urine cultures and blood cultures ordered 5) Electrolyte Imbalance - Hypokalemia and Hypophosphatemia - Phos - 2.1; K - 3.5 - Mg - 1.7 WNL - Repleted with Potassium Phosphate 20 mmol IVPB - Continue to monitor 6) Hyperlipidemia - Lipid panel - TG - 153 (elevated) - Total Chol - 148 (WNL) - LDL - 92 (WNL) - HDL - 20 (low) - ASCVD Risk - 15.8%; will consider high dose statin on discharge pending LFT trend 7) Hx of HTN - Home ASA 81mg po daily held d/t NPO status/surgery, will continue 48hrs post procedure, pending NPO status - Home Losartan 50 mg po daily held d/t NPO status - Monitor BP 8) Hx of DM - Blood sugar: 355 --> 280 --> 191 --> 159 --> 285 --> 232 - Accucheck q6h - Insulin sliding scale - moderate ordered - Metformin held d/t NPO status/ elevated LFTs - Atorvastatin 20 mg po daily held d/t NPO status/ elevated LFTs 9) Constipation - Resolved - Dulcolax 10mg once 10) Prophylaxis - SCDs and Lovenox 40 mg sc daily - Protonix 40 mg IV qd Assessment/Plan Discussed with Dr. Remy Castillo PGY-1 <Jennifer Alberto V - Last Filed: 05/23/18 16:38> Objective - Vital Signs/Intake and Output Vital Signs (last 24 hours): Temp Pulse Resp BP Pulse Ox 98.8 F 78 20 155/79 H 96 05/23/18 00:00 05/23/18 00:00 05/23/18 00:00 05/23/18 00:00 05/23/18 00:00 Intake and Output: 05/23/18 05/23/18 06:59 18:59 Intake Total 1250 1080 Output Total 0 0 Balance 1250 1080 - Medications Medications: Current Medications Acetaminophen (Tylenol 650 Mg Supp) 650 mg SC Q6 PRN PRN Reason: Fever >100.4 F Dextrose (Dextrose 50% Inj) 50 ml IVP ONCE PRN PRN Reason: Hypoglycemia Dextrose (Dextrose 50% Inj) 0 ml IV STAT PRN; Protocol PRN Reason: Hypoglycemia Protocol Dextrose (Glutose 15) 0 gm PO ONCE PRN; Protocol PRN Reason: Hypoglycemia Protocol Enoxaparin Sodium (Lovenox) 40 mg SC DAILY [facility] Last Admin: 05/23/18 09:37 Dose: 40 mg Glucagon (Glucagen Diagnostic Kit) 0 mg IM STAT PRN; Protocol PRN Reason: Hypoglycemia Protocol Metronidazole (Flagyl) 500 mg in 100 mls @ 100 mls/hr IVPB Q8H [facility] PRN Reason: Protocol Last Admin: 05/23/18 14:12 Dose: 100 mls/hr Dextrose (Dextrose 5% In Water 1000 Ml) 1,000 mls @ 0 mls/hr IV .Q0M PRN; Protocol; Per Protocol PRN Reason: Hypoglycemia Protocol Aztreonam 2 gm/ Sodium (Chloride) 100 mls @ 200 mls/hr IVPB Q8H DAIVD PRN Reason: Protocol Last Admin: 05/23/18 11:38 Dose: 200 mls/hr Vancomycin/Sodium Chloride (Vancomycin 1 Gm/Ns 200 Ml) 1 gm in 200 mls @ 133 mls/hr IVPB Q12H [facility] PRN Reason: Protocol Stop: 05/26/18 20:01 Last Admin: 05/23/18 11:14 Dose: 133 mls/hr Sodium Chloride (Sodium Chloride 0.9%) 1,000 mls @ 60 mls/hr IV .[id number] [facility] Last Admin: 05/23/18 11:39 Dose: 60 mls/hr Insulin Aspart (Novolog) 3 unit SC AC [facility] Last Admin: 05/23/18 11:45 Dose: 3 unit Insulin Aspart (Novolog) 0 unit SC ACHS [facility] PRN Reason: Protocol Last Admin: 05/23/18 11:46 Dose: 6 unit Insulin Glargine (Lantus) 5 unit SC HS [facility] Losartan Potassium (Cozaar) 50 mg PO DAILY [facility] Last Admin: 05/23/18 09:36 Dose: 50 mg Ondansetron HCl (Zofran Inj) 4 mg IVP Q6H PRN PRN Reason: Nausea/Vomiting Oxycodone/Acetaminophen (Percocet 5/325 Mg Tab) 1 tab PO Q4H PRN PRN Reason: Pain, moderate (4-7) Stop: 05/26/18 09:54 Pantoprazole Sodium (Protonix Inj) 40 mg IVP DAILY [facility] Last Admin: 05/23/18 09:36 Dose: 40 mg Saccharomyces Boulardii (Florastor) 250 mg PO Q12 [facility] Last Admin: 05/23/18 09:36 Dose: 250 mg Senna/Docusate Sodium (Senokot S 50 Mg-8.6 Mg) 1 tab PO BID [facility] Last Admin: 05/23/18 11:57 Dose: 1 tab Zinc Acetate/Diphenhydramine (Benadryl 1% Zinc Acetate -0.1%) 1 cre TOP DAILY PRN PRN Reason: Itching / Pruritus - Labs Labs: 05/23/18 09:02 05/23/18 09:02 PT 12.9 SECONDS (9.7-12.2) H 05/18/18 07:17 INR 1.2 05/18/18 07:17 APTT 36 SECONDS (21-34) H 05/18/18 07:17 Attending/Attestation - Attestation I have personally seen and examined this patient.: Yes I have fully participated in the care of the patient.: Yes I have reviewed all pertinent clinical information, including history, physical exam and plan: Yes Notes (Text): this is a late computer entry for 05/22/2018. Patient seen, examined, case Discussed with medical insurance biller. Patient's sugar elevated likely secondary to IV fluid containing dextrose. Patient's insulin sliding to high. Surgery has just advance diet to clears. White count is improving infectious disease has added vancomycin. We are awaiting cultures obtained on May 21 to see if any infection is there. Accuchecks adjusted to QAC and HS. Assessment/Plan 1) Leukocytosis Assessment/Plan * patient is postoperative day 3: lysis of adhesions, cholecystectomy, intraoperative cholangiogram explosion of common bile duct * order for blood cultures, UA, urine culture * Infectious disease consult * Patient is currently on IV antibiotic * Patient has been encourage incentive spirometer * Vancomycin 1 gram IV Q12H (active since 05/21/18) * Aztreonam 2gm IV Q8H (active since 05/21/18) * Previously on Aztreonam 1 gram IV Q8H (since 05/18/18) * Flagyl 500mg IV Q8H (active since 05/18/18) 2) Choledocholithiasis Cholelithiasis Assessment/Plan * GI (Dr. Turcios covering Dr. López who was hotel reservationist 05/16/18) and Dr. Bradley ( covering Dr. Turcios given holiday) * General surgery (Dr. Marshall) on case * going for surgery with exploration of the CBD 05/19/18 * preoperative/intraoperative/postoperative per surgery * 05/19/18: lysis of adhesions, cholecystectomy, intraoperative cholangiogram explosion of common bile duct * Patient underwent ERCP with stent, recommended for surgery given gallstones, cbd dilation, unable to visualize cyst duct * CT abdomen/pelvis (05/16/2018) - Cholelithiasis with a contracted distorted gallbladder. Slightly thickened indurated gallbladder wall with some infiltration in the adjacent mesenteries suggesting acute cholecystitis. There is choledocholithiasis with dilatation of the CBD and intrahepatic biliary ductal dilatation * CXR (05/17/2018) - Poor inspiration with low lung volumes, crowded bronchovascular markings and minor bibasilar atelectasis * Abdominal Ultrasound (05/17/2018) - Mild hepatomegaly. Diffuse increased echogenicity in the liver may reflect hepatic steatosis however parenchymal infectious/inflammatory etiologies cannot be excluded. Cholelithiasis, mild diffuse dilation of the common bile duct without evidence for choledocholithiasis. * ERCP (05/17/18) - biliary stent placed. full report pending * MRCP (05/17/18): gallbladder appears compressed containing gallstones. Dilated common bile duct measuring approximately 8mm in diameter. Abrupt distal taper. tiny filling defect within the mid CBD measures ~5mm. Mild intrahepatic biliary fuctal dilatation. * EKG (05/17/2018): NSR * Elevated bilirubin, and transaminitis * Pain PRN: Morphine 4 mg q4h PRN * Nausea PRN: well controlled with Zofran 4 mg IVP q4h PRN, Reglan 5mg IVP q6h prn * Tylenol 650 mg rectally prn ordered for F temp > 100.4 * IV abx:Aztreonam 1 gm IVPB q8H and Flagyl 500 mg IVPB q8h 3) Pancreatitis, Gallstone Assessment/Plan * likely secondary to cholelithiasis * lipase OA 1739 * Patient is NPO for bowel rest * GI and general surgery on board * patient is on IV fluid 4) Hx of HTN Assessment/Plan * Home ASA 81mg po daily held d/t NPO status * Home Losartan 50 mg po daily held d/t NPO status * Monitor BP 5) Hx of DM Assessment/Plan * a1c: 8.8 * Lipid panel: T, chol: 148, LDL: 92, HDL: 20 * Accucheck qacHS * Insulin sliding scale - high * Metformin held d/t NPO status * Atorvastatin 20 mg po daily held d/t NPO status * hypoglycemic protocol 6) Transaminitis Assessment/Plan * monitor 7) Prophylaxis * SCDs * Protonix 40 mg IV qd * On IV fluids * lovenox 40mg subqdaily Disposition: Patient is postoperative day 3 of lysis of adhesions, cholecystectomy, intraoperative cholangiogram explosion of common bile duct. postoperative management per surgery. He will continue to monitor LFTs, bilirubin. patient had a rise in white count on the . f/u may 21 cultures. elevated procalcitonin.
[2018-05-22] MEDS: metroNIDAZOLE IV 500 mg/100 ml 500 MG/100 ML BAG IVPB SCH ×3 (06:07→23:28)
[2018-05-22] MEDS: Dextrose 5%/0.45% NS 1,000 ML IV SCH ×4 (06:09→18:50)
[2018-05-22] MEDS: Vancomycin 1 gm/NS 200 ml 1 GM/200 ML BAG IVPB SCH ×2 (07:37→21:51)
[2018-05-22 07:38] LABS: BASO # 0.1 K/uL (0.0-0.2); BASO % 0.4 % (0.0-2.0); EOS # 0.3 K/uL (0.0-0.7); HEMOGLOBIN 9.9 g/dL (11.0-16.0); LYMPH # 1.8 K/uL (1.0-4.3); LYMPH % 11.8 % (20.0-40.0); MEAN CELL VOLUME 74.6 fL (81.0-99.0); MEAN CORPUSCULAR HEMOGLOBIN 26.6 pg (27.0-31.0); MEAN CORPUSCULAR HGB CONC 35.6 g/dL (33.0-37.0); MEAN PLATELET VOLUME 8.2 fL (7.2-11.7); MONO # 0.8 K/uL (0.0-0.8); MONO % 5.4 % (0.0-10.0); NEUT # 12.6 K/uL (1.8-7.0); NEUT % 80.4 % (50.0-75.0); NRBC % 0.1 % (0.0-2.0); RBC 3.71 Mil/uL (3.80-5.20); RED CELL DISTRIBUTION WIDTH 15.7 % (11.5-14.5); WHITE BLOOD COUNT 15.6 K/uL (4.8-10.8)
[2018-05-22 07:57] LABS: ALBUMIN 2.9 g/dL (3.5-5.0); ALT/SGPT 84 U/L (9-52); AST/SGOT 19 U/L (14-36); BLOOD UREA NITROGEN 6 mg/dL (7-17); CALCIUM 8.9 mg/dl (8.6-10.4); GFR NON-AFRICAN AMERICAN > 60; LIPASE 126 U/L (23-300)
--- NOTE | 2018-05-22 08:57 | CP.PCM.PN ---
Subjective - Date & Time of Evaluation Date of Evaluation: 05/22/18 Time of Evaluation: 08:20 - Subjective Subjective: f/u CBD stones s/p ERCP, AMMY and CBD exploration and stent + cough. Family is present Denies fever, Constip, diarrhea, MCKEON, SZ, RB, melena, hemoptysis Objective - Vital Signs/Intake and Output Vital Signs (last 24 hours): Temp Pulse Resp BP Pulse Ox 98.5 F 82 20 159/84 H 97 05/22/18 08:06 05/22/18 08:06 05/22/18 08:06 05/22/18 08:06 05/22/18 08:06 Intake and Output: 05/22/18 05/22/18 06:59 18:59 Intake Total 1200 Output Total 20 Balance 1180 - Medications Medications: Current Medications Acetaminophen (Tylenol 650 Mg Supp) 650 mg NV Q6 PRN PRN Reason: Fever >100.4 F Dextrose (Dextrose 50% Inj) 50 ml IVP ONCE PRN PRN Reason: Hypoglycemia Dextrose (Dextrose 50% Inj) 0 ml IV STAT PRN; Protocol PRN Reason: Hypoglycemia Protocol Dextrose (Glutose 15) 0 gm PO ONCE PRN; Protocol PRN Reason: Hypoglycemia Protocol Enoxaparin Sodium (Lovenox) 40 mg SC DAILY [facility] Last Admin: 05/21/18 09:55 Dose: 40 mg Glucagon (Glucagen Diagnostic Kit) 0 mg IM STAT PRN; Protocol PRN Reason: Hypoglycemia Protocol Hydromorphone HCl (Dilaudid) 0.5 mg IVP Q3H PRN PRN Reason: Pain, moderate (4-7) Last Admin: 05/20/18 18:35 Dose: 0.5 mg Metronidazole (Flagyl) 500 mg in 100 mls @ 100 mls/hr IVPB Q8H [facility] PRN Reason: Protocol Last Admin: 05/22/18 06:07 Dose: 100 mls/hr Dextrose (Dextrose 5% In Water 1000 Ml) 1,000 mls @ 0 mls/hr IV .Q0M PRN; Protocol; Per Protocol PRN Reason: Hypoglycemia Protocol Dextrose/Sodium Chloride (Dextrose 5%/0.45% Ns 1000 Ml) 1,000 mls @ 150 mls/hr IV .Q6H40M [facility] Last Admin: 05/22/18 06:09 Dose: 150 mls/hr Aztreonam 2 gm/ Sodium (Chloride) 100 mls @ 200 mls/hr IVPB Q8H [facility] PRN Reason: Protocol Last Admin: 05/22/18 01:46 Dose: 200 mls/hr Vancomycin/Sodium Chloride (Vancomycin 1 Gm/Ns 200 Ml) 1 gm in 200 mls @ 133 mls/hr IVPB Q12H [facility] PRN Reason: Protocol Stop: 05/26/18 20:01 Last Admin: 05/22/18 07:37 Dose: 133 mls/hr Insulin Human Regular (Novolin R) 0 unit SC Q6H [facility] PRN Reason: Protocol Last Admin: 05/22/18 06:46 Dose: Not Given Losartan Potassium (Cozaar) 50 mg PO DAILY [facility] Last Admin: 05/21/18 10:05 Dose: Not Given Ondansetron HCl (Zofran Inj) 4 mg IVP Q6H PRN PRN Reason: Nausea/Vomiting Pantoprazole Sodium (Protonix Inj) 40 mg IVP DAILY [facility] Last Admin: 05/21/18 09:55 Dose: 40 mg Saccharomyces Boulardii (Florastor) 250 mg PO Q12 [facility] Last Admin: 05/21/18 22:14 Dose: 250 mg Zinc Acetate/Diphenhydramine (Benadryl 1% Zinc Acetate -0.1%) 1 cre TOP DAILY PRN PRN Reason: Itching / Pruritus - Labs Labs: 05/22/18 07:16 05/22/18 07:16 PT 12.9 SECONDS (9.7-12.2) H 05/18/18 07:17 INR 1.2 05/18/18 07:17 APTT 36 SECONDS (21-34) H 05/18/18 07:17 - Constitutional Appears: Well - Respiratory Exam Respiratory Exam: Clear to Ausculation Bilateral - Cardiovascular Exam Cardiovascular Exam: RRR - GI/Abdominal Exam GI & Abdominal Exam: Soft, Tenderness, Normal Bowel Sounds. absent: Guarding, Mass - Extremities Exam Extremities Exam: absent: Calf Tenderness - Neurological Exam Neurological Exam: Alert, Oriented x3 Assessment and Plan (1) Pancreatitis Status: Acute (2) Choledocholithiasis Assessment & Plan: s/p ERCp, AMMY and bile duct exploration and stent. LFTs are improving Status: Acute (3) Cough Status: Acute (4) Leukocytosis Assessment & Plan: Seen by ID. Added antibiotics. Status: Acute (5) Abnormal LFTs Assessment & Plan: Improving. s/p CBD stones Status: Acute
--- NOTE | 2018-05-22 09:04 | CP.PCM.PN ---
Subjective - Date & Time of Evaluation Date of Evaluation: 05/22/18 Time of Evaluation: 06:05 - Subjective Subjective: Patient seen and examined. Denies passing flatus or having BM. Denies abdominal pain. Reports some tenderness along RUQ incision. Some sanguinous drainage from lateral edge of brannon incision. 20cc of bilious drainage into CECY. Objective - Vital Signs/Intake and Output Vital Signs (last 24 hours): Temp Pulse Resp BP Pulse Ox 98.5 F 82 20 159/84 H 97 05/22/18 08:06 05/22/18 08:06 05/22/18 08:06 05/22/18 08:06 05/22/18 08:06 Intake and Output: 05/22/18 05/22/18 06:59 18:59 Intake Total 1200 Output Total 20 Balance 1180 - Medications Medications: Current Medications Acetaminophen (Tylenol 650 Mg Supp) 650 mg NV Q6 PRN PRN Reason: Fever >100.4 F Dextrose (Dextrose 50% Inj) 50 ml IVP ONCE PRN PRN Reason: Hypoglycemia Dextrose (Dextrose 50% Inj) 0 ml IV STAT PRN; Protocol PRN Reason: Hypoglycemia Protocol Dextrose (Glutose 15) 0 gm PO ONCE PRN; Protocol PRN Reason: Hypoglycemia Protocol Enoxaparin Sodium (Lovenox) 40 mg SC DAILY [facility] Last Admin: 05/21/18 09:55 Dose: 40 mg Glucagon (Glucagen Diagnostic Kit) 0 mg IM STAT PRN; Protocol PRN Reason: Hypoglycemia Protocol Hydromorphone HCl (Dilaudid) 0.5 mg IVP Q3H PRN PRN Reason: Pain, moderate (4-7) Last Admin: 05/20/18 18:35 Dose: 0.5 mg Metronidazole (Flagyl) 500 mg in 100 mls @ 100 mls/hr IVPB Q8H DAVID PRN Reason: Protocol Last Admin: 05/22/18 06:07 Dose: 100 mls/hr Dextrose (Dextrose 5% In Water 1000 Ml) 1,000 mls @ 0 mls/hr IV .Q0M PRN; Protocol; Per Protocol PRN Reason: Hypoglycemia Protocol Dextrose/Sodium Chloride (Dextrose 5%/0.45% Ns 1000 Ml) 1,000 mls @ 150 mls/hr IV .Q6H40M [facility] Last Admin: 05/22/18 06:09 Dose: 150 mls/hr Aztreonam 2 gm/ Sodium (Chloride) 100 mls @ 200 mls/hr IVPB Q8H DAVID PRN Reason: Protocol Last Admin: 05/22/18 01:46 Dose: 200 mls/hr Vancomycin/Sodium Chloride (Vancomycin 1 Gm/Ns 200 Ml) 1 gm in 200 mls @ 133 mls/hr IVPB Q12H DAVID PRN Reason: Protocol Stop: 05/26/18 20:01 Last Admin: 05/22/18 07:37 Dose: 133 mls/hr Insulin Human Regular (Novolin R) 0 unit SC Q6H DAVID PRN Reason: Protocol Last Admin: 05/22/18 06:46 Dose: Not Given Losartan Potassium (Cozaar) 50 mg PO DAILY [facility] Last Admin: 05/21/18 10:05 Dose: Not Given Ondansetron HCl (Zofran Inj) 4 mg IVP Q6H PRN PRN Reason: Nausea/Vomiting Pantoprazole Sodium (Protonix Inj) 40 mg IVP DAILY [facility] Last Admin: 05/21/18 09:55 Dose: 40 mg Saccharomyces Boulardii (Florastor) 250 mg PO Q12 [facility]ID Last Admin: 05/21/18 22:14 Dose: 250 mg Zinc Acetate/Diphenhydramine (Benadryl 1% Zinc Acetate -0.1%) 1 cre TOP DAILY PRN PRN Reason: Itching / Pruritus - Labs Labs: 05/22/18 07:16 05/22/18 07:16 PT 12.9 SECONDS (9.7-12.2) H 05/18/18 07:17 INR 1.2 05/18/18 07:17 APTT 36 SECONDS (21-34) H 05/18/18 07:17 - Constitutional Appears: No Acute Distress - Head Exam Head Exam: NORMOCEPHALIC - Eye Exam Eye Exam: Normal appearance - Cardiovascular Exam Cardiovascular Exam: +S1, +S2 - GI/Abdominal Exam GI & Abdominal Exam: Soft, Tenderness - Neurological Exam Neurological Exam: Alert, Awake, Oriented x3 - Skin Skin Exam: Dry, Intact, Warm Assessment and Plan - Assessment and Plan (Free Text) Assessment: 62F with choledocholithiasis and gallstone pancreatitis s/p CBD exploration POD3 Drain 20cc/24hrs bilious Plan: Clear liquid diet IVF C/w ABx F/u ID recs C/w analgesics C/w anti-emetics Trend LFT's- downtrending Encourage incentive spirometer use OOB to chair Encourage Ambulation PT DVT ppx D/w Dr. Rolando Cruz PGY3
[2018-05-22] MEDS: Saccharomyces Boulardi 250 mg Cap PO SCH ×2 (09:30→21:50)
[2018-05-22] MEDS: Enoxaparin 40 mg Syringe SC SCH (09:31)
[2018-05-22] MEDS ORDERED: Potassium Chloride 20 mEq ER Tab PO ONE (10:15)
[2018-05-22 17:37] LABS: ALT/SGPT 81 U/L (9-52); AST/SGOT 16 U/L (14-36); BLOOD UREA NITROGEN 5 mg/dL (7-17); CALCIUM 8.8 mg/dl (8.6-10.4); GFR NON-AFRICAN AMERICAN > 60
--- NOTE | 2018-05-23 00:41 | CP.PCM.PN ---
<Jose Castillo - Last Filed: 05/23/18 00:39> Subjective - Date & Time of Evaluation Date of Evaluation: 05/23/18 Time of Evaluation: 00:39 - Subjective Subjective: PGY-[address] Alberto Patient seen and examined at bedside today with family present in no acute distress. Patient is s/p cholecystectomy POD #3. She notes her abdominal pain in the RUQ over her surgical site is present only with application of pressure. She does state that she has been having a productive cough with clear sputum, as well as some subjective fevers. She has been able to walk with assistance from her family and has been urinating comfortably. She has been passing gas but has not had a BM since the procedure. Otherwise, she denies chest pain, palpitations, nausea, vomiting, diarrhea, constipation, shortness of breath, pain with deep inspiration, or hearing/vision changes. Objective - Vital Signs/Intake and Output Vital Signs (last 24 hours): Temp Pulse Resp BP Pulse Ox 98.5 F 79 20 160/88 H 98 05/22/18 17:20 05/22/18 17:20 05/22/18 17:20 05/22/18 17:20 05/22/18 17:20 Intake and Output: 05/22/18 05/23/18 18:59 06:59 Intake Total 1450 1250 Output Total 10 0 Balance 1440 1250 - Medications Medications: Current Medications Acetaminophen (Tylenol 650 Mg Supp) 650 mg DC Q6 PRN PRN Reason: Fever >100.4 F Dextrose (Dextrose 50% Inj) 50 ml IVP ONCE PRN PRN Reason: Hypoglycemia Dextrose (Dextrose 50% Inj) 0 ml IV STAT PRN; Protocol PRN Reason: Hypoglycemia Protocol Dextrose (Glutose 15) 0 gm PO ONCE PRN; Protocol PRN Reason: Hypoglycemia Protocol Enoxaparin Sodium (Lovenox) 40 mg SC DAILY [facility] Last Admin: 05/22/18 09:31 Dose: 40 mg Glucagon (Glucagen Diagnostic Kit) 0 mg IM STAT PRN; Protocol PRN Reason: Hypoglycemia Protocol Hydromorphone HCl (Dilaudid) 0.5 mg IVP Q3H PRN PRN Reason: Pain, moderate (4-7) Last Admin: 05/20/18 18:35 Dose: 0.5 mg Metronidazole (Flagyl) 500 mg in 100 mls @ 100 mls/hr IVPB Q8H DAVID PRN Reason: Protocol Last Admin: 05/22/18 23:28 Dose: 100 mls/hr Dextrose (Dextrose 5% In Water 1000 Ml) 1,000 mls @ 0 mls/hr IV .Q0M PRN; Protocol; Per Protocol PRN Reason: Hypoglycemia Protocol Dextrose/Sodium Chloride (Dextrose 5%/0.45% Ns 1000 Ml) 1,000 mls @ 150 mls/hr IV .Q6H40M [facility] Last Admin: 05/22/18 18:50 Dose: Not Given Aztreonam 2 gm/ Sodium (Chloride) 100 mls @ 200 mls/hr IVPB Q8H DAVID PRN Reason: Protocol Last Admin: 05/22/18 19:12 Dose: 200 mls/hr Vancomycin/Sodium Chloride (Vancomycin 1 Gm/Ns 200 Ml) 1 gm in 200 mls @ 133 mls/hr IVPB Q12H DAVID PRN Reason: Protocol Stop: 05/26/18 20:01 Last Admin: 05/22/18 21:51 Dose: 133 mls/hr Insulin Human Regular (Novolin R) 0 unit SC ACHS DAVID PRN Reason: Protocol Last Admin: 05/22/18 22:19 Dose: 2 units Losartan Potassium (Cozaar) 50 mg PO DAILY [facility] Last Admin: 05/22/18 09:31 Dose: 50 mg Ondansetron HCl (Zofran Inj) 4 mg IVP Q6H PRN PRN Reason: Nausea/Vomiting Pantoprazole Sodium (Protonix Inj) 40 mg IVP DAILY [facility] Last Admin: 05/22/18 09:30 Dose: 40 mg Saccharomyces Boulardii (Florastor) 250 mg PO Q12 [facility] Last Admin: 05/22/18 21:50 Dose: 250 mg Zinc Acetate/Diphenhydramine (Benadryl 1% Zinc Acetate -0.1%) 1 cre TOP DAILY PRN PRN Reason: Itching / Pruritus - Labs Labs: 05/22/18 07:16 05/22/18 16:30 PT 12.9 SECONDS (9.7-12.2) H 05/18/18 07:17 INR 1.2 05/18/18 07:17 APTT 36 SECONDS (21-34) H 09/11/18 07:17 - Head Exam Head Exam: ATRAUMATIC, NORMAL INSPECTION - Eye Exam Eye Exam: EOMI - ENT Exam Additional comments: Jaundice posterior pharynx - Respiratory Exam Respiratory Exam: Clear to Ausculation Bilateral, NORMAL BREATHING PATTERN - Cardiovascular Exam Cardiovascular Exam: REGULAR RHYTHM, +S1, +S2 - GI/Abdominal Exam GI & Abdominal Exam: Soft Additional comments: Mild tenderness to the RUQ and epigastrium, No tenderness over the LUQ, surgical dressings CDI overlying RUQ surgical site, Florentin drain in place draining dark nonturbulent bilious fluid - Extremities Exam Extremities Exam: Normal Inspection - Neurological Exam Neurological Exam: Awake, CN II-XII Intact, Oriented x3 - Skin Skin Exam: Dry, Intact, Normal Color Assessment and Plan - Assessment and Plan (Free Text) Assessment: Assessment: 62 year old female with PMHx of HTN and DM admitted for choledocholithiasis and and pancreatitis, who is POD #3 s/p cholecystectomy Plan: 1) Choledocholithiasis Imaging: - CT abdomen/pelvis (05/16/2018) - Cholelithiasis with a contracted distorted gallbladder. Slightly thickened indurated gallbladder wall with some infiltration in the adjacent mesenteries suggesting acute cholecystitis. There is choledocholithiasis with dilatation of the CBD and intrahepatic biliary ductal dilatation - CXR (05/17/2018) - Poor inspiration with low lung volumes, crowded bronchovascular markings and minor bibasilar atelectasis - Abdominal Ultrasound (05/17/2018) - Mild hepatomegaly. Diffuse increased echogenicity in the liver may reflect hepatic steatosis however parenchymal infectious/inflammatory etiologies cannot be excluded. Cholelithiasis, mild diffuse dilation of the common bile duct without evidence for choledocholithiasis. - ERCP (05/17/18) - 1 ml omnipaque biliary stent placed - EKG (05/17/2018) - Normal Sinus Rhythm at 78, normal axis deviation, normal R wave progression, no acute STT changes - MRCP (05/17/2018) - dilated common bile duct measuring approximately 8 mm in diameter. Tiny filling defect within the mid CBD measuring approximately 5 mm; possibly calculus. Mild intrahepatic biliary duct dilation. - PA and Lateral CXR (05/18/2018) - No active disease Labs: - Labs reviewed: - Lipase - 1739 (OA) --> 2372 --> 279 --> 718 --> 98 - Amylase - 275 (OA) --> 138 - AST - 188 --> 187 --> 130 --> 74 --> 74 --> 25 - ALT - 455 --> 423 --> 327 --> 241 --> 196 --> 119 - T Bili - 2.3 --> 3.9 --> 2.5 --> 2.3 --> 1.9 - WBC - 21.8 --> 12.7 --> 10.5 --> 11.8 --> 16 --> 19 - Alk Phos - 364 --> 333 --> 338 --> 350 --> 273 --> 219 - UA/Urine Tox - Negative - AFP - 3.3 (WNL), CA 19-9 - 159 (elevated), CEA - 1.8 (WNL) - PT - 12.2 --> 12.9, INR - 1.1 --> 1.1, PTT - 35 --> 36 - A1c - 8.1 (elevated) - sugars have been well controlled this admission on ISS moderate - TG - 153 (elevated), Total Chol - 148 (WNL), LDL - 92 (WNL), HDL - 20 (low) Consults: - Surgery consulted (Dr. Marshall) - help appreciated - GI consult placed to Dr. López (Dr. Kirk pimentel) - help appreciated - Surgery performed cholecystectomy on 05/19/2018 with lysis of adhesions, intraoperative cholangiogram and drain placement - Patient should remain NPO - has drained >175 in the last 24 hrs - Encourage use of incentive spirometer - Encourage OOB ambulation - ID consulted (Dr. Rios) - help appreciated - vancomycin added - f/u vanc trough ordered 05/23 Meds: - Pain controlled with Dilaudid 0.5 mg IVP q3h PRN - Nausea well controlled with Zofran 4 mg IVP q4h PRN - Benadryl 25mg IVP daily prn for itching - Tylenol 650 mg rectally PRN ordered for F temp > 100.4 - IV NS at 150 mls/hr q6h - Leukocytosis treated with Aztreonam 1 gm IVPB qd and Flagyl 500 mg IVPB q8h 2) Pancreatitis, acute - likely secondary to choledocholithiasis - lipase OA 1739 --> 2372 --> 279 --> 718 --> 98 - Patient is NPO for bowel rest - Continue NS at 150 ml/hr - Zofran 4 mg IVP q4h PRN - Dilaudid 0.5 mg Q3 prn 3) Transaminitis - Likely 2/2 Choledocholithiasis - AST - 188 --> 187 --> 130 --> 74 --> 74 --> 25 - ALT - 455 --> 423 --> 327 --> 241 --> 196 --> 119 - T Bili - 2.3 --> 3.9 --> 2.5 --> 2.3 --> 1.9 - Currently downtrending, will continue to monitor 4) Leukocytosis - WBC - 21.8 --> 12.7 --> 10.5 --> 11.8 --> 16 --> 19 - Currently treated with Aztreonam 1 gm IVPB qd and Flagyl 500 mg IVPB q8h - Consult placed to Dr. Rios - UA, Urine cultures and blood cultures ordered 5) Electrolyte Imbalance - Hypokalemia and Hypophosphatemia - Phos - 2.1; K - 3.5 - Mg - 1.7 WNL - Repleted with Potassium Phosphate 20 mmol IVPB - Continue to monitor 6) Hyperlipidemia - Lipid panel - TG - 153 (elevated) - Total Chol - 148 (WNL) - LDL - 92 (WNL) - HDL - 20 (low) - ASCVD Risk - 15.8%; will consider high dose statin on discharge pending LFT trend 7) Hx of HTN - Home ASA 81mg po daily held d/t NPO status/surgery, will continue 48hrs post procedure, pending NPO status - Home Losartan 50 mg po daily held d/t NPO status - Monitor BP 8) Hx of DM - Blood sugar: 355 --> 280 --> 191 --> 159 --> 285 --> 232 - Accucheck q6h - Insulin sliding scale - moderate ordered - Metformin held d/t NPO status/ elevated LFTs - Atorvastatin 20 mg po daily held d/t NPO status/ elevated LFTs 9) Constipation - Resolved - Dulcolax 10mg once 10) Prophylaxis - SCDs and Lovenox 40 mg sc daily - Protonix 40 mg IV qd Assessment/Plan Discussed with Dr. Remy Castillo PGY-1 <Jennifer Alberto V - Last Filed: 05/23/18 16:46> Objective - Vital Signs/Intake and Output Vital Signs (last 24 hours): Temp Pulse Resp BP Pulse Ox 98.8 F 78 20 155/79 H 96 05/23/18 00:00 05/23/18 00:00 05/23/18 00:00 05/23/18 00:00 05/23/18 00:00 Intake and Output: 05/23/18 05/23/18 06:59 18:59 Intake Total 1250 1080 Output Total 0 0 Balance 1250 1080 - Medications Medications: Current Medications Acetaminophen (Tylenol 650 Mg Supp) 650 mg DC Q6 PRN PRN Reason: Fever >100.4 F Dextrose (Dextrose 50% Inj) 50 ml IVP ONCE PRN PRN Reason: Hypoglycemia Dextrose (Dextrose 50% Inj) 0 ml IV STAT PRN; Protocol PRN Reason: Hypoglycemia Protocol Dextrose (Glutose 15) 0 gm PO ONCE PRN; Protocol PRN Reason: Hypoglycemia Protocol Enoxaparin Sodium (Lovenox) 40 mg SC DAILY [facility] Last Admin: 05/23/18 09:37 Dose: 40 mg Glucagon (Glucagen Diagnostic Kit) 0 mg IM STAT PRN; Protocol PRN Reason: Hypoglycemia Protocol Metronidazole (Flagyl) 500 mg in 100 mls @ 100 mls/hr IVPB Q8H DAVID PRN Reason: Protocol Last Admin: 05/23/18 14:12 Dose: 100 mls/hr Aztreonam 2 gm/ Sodium (Chloride) 100 mls @ 200 mls/hr IVPB Q8H DAVID PRN Reason: Protocol Last Admin: 05/23/18 11:38 Dose: 200 mls/hr Vancomycin/Sodium Chloride (Vancomycin 1 Gm/Ns 200 Ml) 1 gm in 200 mls @ 133 mls/hr IVPB Q12H DAVID PRN Reason: Protocol Stop: 05/26/18 20:01 Last Admin: 05/23/18 11:14 Dose: 133 mls/hr Sodium Chloride (Sodium Chloride 0.9%) 1,000 mls @ 60 mls/hr IV .[id number] [facility] Last Admin: 05/23/18 11:39 Dose: 60 mls/hr Insulin Aspart (Novolog) 3 unit SC AC [facility] Last Admin: 05/23/18 11:45 Dose: 3 unit Insulin Aspart (Novolog) 0 unit SC ACHS DAVID PRN Reason: Protocol Last Admin: 05/23/18 11:46 Dose: 6 unit Insulin Glargine (Lantus) 5 unit SC HS [facility] Losartan Potassium (Cozaar) 50 mg PO DAILY [facility] Last Admin: 05/23/18 09:36 Dose: 50 mg Ondansetron HCl (Zofran Inj) 4 mg IVP Q6H PRN PRN Reason: Nausea/Vomiting Oxycodone/Acetaminophen (Percocet 5/325 Mg Tab) 1 tab PO Q4H PRN PRN Reason: Pain, moderate (4-7) Stop: 05/26/18 09:54 Pantoprazole Sodium (Protonix Inj) 40 mg IVP DAILY [facility] Last Admin: 05/23/18 09:36 Dose: 40 mg Saccharomyces Boulardii (Florastor) 250 mg PO Q12 [facility] Last Admin: 05/23/18 09:36 Dose: 250 mg Senna/Docusate Sodium (Senokot S 50 Mg-8.6 Mg) 1 tab PO BID [facility] Last Admin: 05/23/18 11:57 Dose: 1 tab Zinc Acetate/Diphenhydramine (Benadryl 1% Zinc Acetate -0.1%) 1 cre TOP DAILY PRN PRN Reason: Itching / Pruritus - Labs Labs: 05/23/18 09:02 05/23/18 09:02 PT 12.9 SECONDS (9.7-12.2) H 05/18/18 07:17 INR 1.2 05/18/18 07:17 APTT 36 SECONDS (21-34) H 05/18/18 07:17 Attending/Attestation - Attestation I have personally seen and examined this patient.: Yes I have fully participated in the care of the patient.: Yes I have reviewed all pertinent clinical information, including history, physical exam and plan: Yes Notes (Text): Patient seen, examined, case discussed with medical apparatus model maker. Patient seen this morning with family members at bedside. Patient reports that she does feel weak and reports pain localized to the surgical site patient has minimal amount of bilious fluid in JPEG. Patient is encouraged to eat she reports she does not have appetite. Patient reports concerns of the sugar is elevated but is unusual for her. I have discontinued the D5NS given that that is contributing to her elevated sugars. I've switched to NS 60 mL/h. I have discontinued the regular insulin sliding scale. I've started medium dose of NovoLog insulin sliding scale. Patient has noted to be taking about 20 units of regular insulin coverage for the past 24 hours. I'll start Lantus 5 units subcutaneous at bedtime, NovoLog 3 units 3 times a day before meals, and NovoLog insulin sliding scale. Restart patient's antihypertensives since she is now advanced her diet by surgery. Patient's urine culture from May 21 shows Enterococcus faecalis is sensitive to vancomycin. There is also an option for ciprofloxacin as well. I have repeated urine culture to show clearance. Blood cultures from May 21 containing continue to be negative. We will repeat a pro-calcitonin for tomorrow. White count is improving. Liver functions are improving. Patient has been encourage to continue to use incentive spirometry and to be out of bed. Assessment/Plan 1) Leukocytosis Assessment/Plan * patient is postoperative day 4: lysis of adhesions, cholecystectomy, intraoperative cholangiogram explosion of common bile duct * blood cultures from May 21: no growth * Urine culture May 21: Enterococcus faecalis sensitive vancomycin * Will repeat UA and urine culture * Elevated pro-calcitonin * Will repeat pro calcitonin * Infectious disease consult * Patient is currently on IV antibiotic * Patient has been encourage incentive spirometer * Vancomycin 1 gram IV Q12H (active since 05/21/18) * Aztreonam 2gm IV Q8H (active since 05/21/18) * Previously on Aztreonam 1 gram IV Q8H (since 05/18/18) * Flagyl 500mg IV Q8H (active since 05/18/18) 2) Choledocholithiasis Cholelithiasis Assessment/Plan * GI (Dr. Turcios covering Dr. López who was afternoon babysitter 05/16/18) and Dr. Bradley ( covering Dr. Turcios given holiday) * General surgery (Dr. Marshall) on case * going for surgery with exploration of the CBD 05/19/18 * preoperative/intraoperative/postoperative per surgery * 05/19/18: lysis of adhesions, cholecystectomy, intraoperative cholangiogram explosion of common bile duct * Patient underwent ERCP with stent, recommended for surgery given gallstones, cbd dilation, unable to visualize cyst duct * CT abdomen/pelvis (05/16/2018) - Cholelithiasis with a contracted distorted gallbladder. Slightly thickened indurated gallbladder wall with some infiltration in the adjacent mesenteries suggesting acute cholecystitis. There is choledocholithiasis with dilatation of the CBD and intrahepatic biliary ductal dilatation * CXR (05/17/2018) - Poor inspiration with low lung volumes, crowded bronchovascular markings and minor bibasilar atelectasis * Abdominal Ultrasound (05/17/2018) - Mild hepatomegaly. Diffuse increased echogenicity in the liver may reflect hepatic steatosis however parenchymal infectious/inflammatory etiologies cannot be excluded. Cholelithiasis, mild diffuse dilation of the common bile duct without evidence for choledocholithiasis. * ERCP (05/17/18) - biliary stent placed. full report pending * MRCP (05/17/18): gallbladder appears compressed containing gallstones. Dilated common bile duct measuring approximately 8mm in diameter. Abrupt distal taper. tiny filling defect within the mid CBD measures ~5mm. Mild intrahepatic biliary fuctal dilatation. * EKG (05/17/2018): NSR * Elevated bilirubin, and transaminitis * Pain PRN: Morphine 4 mg q4h PRN * Nausea PRN: well controlled with Zofran 4 mg IVP q4h PRN, Reglan 5mg IVP q6h prn * Tylenol 650 mg rectally prn ordered for F temp > 100.4 * IV abx:Aztreonam 1 gm IVPB q8H and Flagyl 500 mg IVPB q8h 3) Pancreatitis, Gallstone Assessment/Plan * likely secondary to cholelithiasis * lipase OA 1739 * Patient is NPO for bowel rest * GI and general surgery on board * patient is on IV fluid 4) Hx of HTN Assessment/Plan * Home ASA 81mg po daily held d/t NPO status * Will restart losartan 50 mg once day * Monitor BP 5) Hx of DM uncontrolled diabetes Assessment/Plan * a1c: 8.8 * Lipid panel: T, chol: 148, LDL: 92, HDL: 20 * Accucheck qacHS * Lantus 5 units daily at bedtime * NovoLog 3 units 3 times * NovoLog insulin sliding scale * Metformin held d/t NPO status * Atorvastatin 20 mg po daily held d/t NPO status * hypoglycemic protocol 6) Transaminitis Assessment/Plan * monitor 7) Prophylaxis * SCDs * Protonix 40 mg IV qd * On IV fluids * lovenox 40mg subqdaily Disposition: Patient is postoperative day 4 of lysis of adhesions, cholecystectomy, intraoperative cholangiogram explosion of common bile duct. postoperative management per surgery. white count is improving, liver function tests improving. Repeat urine culture. Repeat pro calcitonin. Patient is pending surgery clearance from the standpoint. Will need repeat cultures as well.
--- NOTE | 2018-05-23 00:43 | CP.PCM.PN ---
<Jose Castillo - Last Filed: 05/23/18 00:42> Subjective - Date & Time of Evaluation Date of Evaluation: 05/23/18 Time of Evaluation: 00:42 - Subjective Subjective: PGY-[address] Tang Patient seen and examined at bedside this morning. Patient appears comfortable. Patient denies any pain or urge to urinate. Patient is voiding via oliveira placed 05/21/18. Patient is status post leadless pacemaker placement. Patient sitting up in bed and eating. Patient denied pain and/or new complaints. Objective - Vital Signs/Intake and Output Vital Signs (last 24 hours): Temp Pulse Resp BP Pulse Ox 98.5 F 79 20 160/88 H 98 05/22/18 17:20 05/22/18 17:20 05/22/18 17:20 05/22/18 17:20 05/22/18 17:20 Intake and Output: 05/22/18 05/23/18 18:59 06:59 Intake Total 1450 1250 Output Total 10 0 Balance 1440 1250 - Medications Medications: Current Medications Acetaminophen (Tylenol 650 Mg Supp) 650 mg [place] Q6 PRN PRN Reason: Fever >100.4 F Dextrose (Dextrose 50% Inj) 50 ml IVP ONCE PRN PRN Reason: Hypoglycemia Dextrose (Dextrose 50% Inj) 0 ml IV STAT PRN; Protocol PRN Reason: Hypoglycemia Protocol Dextrose (Glutose 15) 0 gm PO ONCE PRN; Protocol PRN Reason: Hypoglycemia Protocol Enoxaparin Sodium (Lovenox) 40 mg SC DAILY [facility] Last Admin: 05/22/18 09:31 Dose: 40 mg Glucagon (Glucagen Diagnostic Kit) 0 mg IM STAT PRN; Protocol PRN Reason: Hypoglycemia Protocol Hydromorphone HCl (Dilaudid) 0.5 mg IVP Q3H PRN PRN Reason: Pain, moderate (4-7) Last Admin: 05/20/18 18:35 Dose: 0.5 mg Metronidazole (Flagyl) 500 mg in 100 mls @ 100 mls/hr IVPB Q8H [facility] PRN Reason: Protocol Last Admin: 05/22/18 23:28 Dose: 100 mls/hr Dextrose (Dextrose 5% In Water 1000 Ml) 1,000 mls @ 0 mls/hr IV .Q0M PRN; Protocol; Per Protocol PRN Reason: Hypoglycemia Protocol Dextrose/Sodium Chloride (Dextrose 5%/0.45% Ns 1000 Ml) 1,000 mls @ 150 mls/hr IV .Q6H40M [facility] Last Admin: 05/22/18 18:50 Dose: Not Given Aztreonam 2 gm/ Sodium (Chloride) 100 mls @ 200 mls/hr IVPB Q8H [facility] PRN Reason: Protocol Last Admin: 05/22/18 19:12 Dose: 200 mls/hr Vancomycin/Sodium Chloride (Vancomycin 1 Gm/Ns 200 Ml) 1 gm in 200 mls @ 133 mls/hr IVPB Q12H [facility] PRN Reason: Protocol Stop: 05/26/18 20:01 Last Admin: 05/22/18 21:51 Dose: 133 mls/hr Insulin Human Regular (Novolin R) 0 unit SC ACHS [facility] PRN Reason: Protocol Last Admin: 05/22/18 22:19 Dose: 2 units Losartan Potassium (Cozaar) 50 mg PO DAILY [facility] Last Admin: 05/22/18 09:31 Dose: 50 mg Ondansetron HCl (Zofran Inj) 4 mg IVP Q6H PRN PRN Reason: Nausea/Vomiting Pantoprazole Sodium (Protonix Inj) 40 mg IVP DAILY [facility] Last Admin: 05/22/18 09:30 Dose: 40 mg Saccharomyces Boulardii (Florastor) 250 mg PO Q12 [facility] Last Admin: 05/22/18 21:50 Dose: 250 mg Zinc Acetate/Diphenhydramine (Benadryl 1% Zinc Acetate -0.1%) 1 cre TOP DAILY PRN PRN Reason: Itching / Pruritus - Labs Labs: 05/22/18 07:16 05/22/18 16:30 PT 12.9 SECONDS (9.7-12.2) H 05/18/18 07:17 INR 1.2 05/18/18 07:17 APTT 36 SECONDS (21-34) H 05/18/18 07:17 - Head Exam Head Exam: ATRAUMATIC, NORMAL INSPECTION - Eye Exam Eye Exam: EOMI, Normal appearance - ENT Exam ENT Exam: Mucous Membranes Moist, Normal Exam - Respiratory Exam Respiratory Exam: Clear to Ausculation Bilateral, NORMAL BREATHING PATTERN. absent: Rales, Wheezes - Cardiovascular Exam Cardiovascular Exam: REGULAR RHYTHM, RRR, +S1, +S2 - GI/Abdominal Exam GI & Abdominal Exam: Soft, Normal Bowel Sounds. absent: Tenderness - Extremities Exam Extremities Exam: Normal Inspection - Neurological Exam Neurological Exam: Alert, Awake, CN II-XII Intact, Oriented x3 - Psychiatric Exam Psychiatric exam: Normal Affect, Normal Mood - Skin Skin Exam: Normal Color, Warm Assessment and Plan - Assessment and Plan (Free Text) Assessment: Assessment: This is a frail 89 year old male with possible history of hypertension ,unknown psychiatric illness and possible dementia was brought for evaluation after patient was reportedly found on the floor in his house by cleaning staff in his home. Unknown how long he was on the floor. Patient is under state guardianship. He was living alone with the help of once a week home care service. On admission patient was in atrial flutter with varying response. His lowest rate was in 30's. Patient was asymptomatic on admission and admitted to telemetry. Subsequently brought to ICU for bradycardia with evidence of Atrial flutter with block. Advance directive -full code Of note, patient has no family. He was living alone with once a week help. History of dementia,psychiatry disorder and hypertension. He was refusing medical care in the past as per his watch case polisher d/w patient's comp field case manager. His state guardian is on vacation State guardian . The State appointed Guardian number is [phone] - her name is Loy Diamond Plan: Atrial fibrillation / flutter with block, bradycardia often in the 30s - Patient was in bradycardic with HR in 30ies - Day 2 status-post leadless pacemaker 05/18/18 - Paced rhythm rate 70 - Start: Eliquis 2.5mg PO BID today The State appointed Guardian number is [phone] - her name is Loy Diamond Urinary retention - Oliveira placed 05/20/18 - PSA=pending - Medications: * Flomax 0.4mg PO Daily * Terazosin 1mg PO HS Severe Aortic Stenosis 05/10: Echo returned, there is JOEY of 0.8, also moderate to severe pulmonary HTN seen and severely dilated left atrium New CVA with aphasia /subacute stroke - Neurology consulted on case (Dr. Paniagua) - CT without contrast: subtle hypodensity in the left MCA territory ( nonspecific and may represent subacute infarct) * Heparin on hold * Continue Crestor 10mg PO HS Community Acquired Pneumonia 05/10: Cultures have been negative 3 days now. He remains on IV rocephin/ completing today Chest X-ray: Left lower lobe infiltrates/atelectasis Ulcers secondary to being on the ground for unknown duration - Wound Care Advance directives-full code Previously d/w patient's comp field case manager. His state guardian is on vacation Patient tolerated the placement of leadless pacemaker through right femoral access. Groin suture removed by laborer airport maintenance nurse in AM 05/19/18. Follow up with Dr Monet Archer in 2 weeks as an out patient. Per francisco conversation with Urology: Patient's urinary retention is likely neurological in etiology and associated with most recent stroke. No further work -up indicated at this time. Per recommendations, patient will benefit from rehabilitation. Recommends patient undergo voiding trials at rehab facility and if any issues regarding the former patient is to follow-up with Dr. Dwaine Li ( Urology). Of note, patient is medically optimized and cleared for discharge to rehab facility. Discussed with comp field case manager. Per comp field case manager, patient is pending acceptance to rehab facility. Will follow recommendations. Assessment/Plan Discussed with Dr. Clyde Castillo, PGY-1 <Jennifer Alberto V - Last Filed: 05/23/18 10:26> Objective - Vital Signs/Intake and Output Vital Signs (last 24 hours): Temp Pulse Resp BP Pulse Ox 98.8 F 78 20 155/79 H 96 05/23/18 00:00 05/23/18 00:00 05/23/18 00:00 05/23/18 00:00 05/23/18 00:00 Intake and Output: 05/23/18 05/23/18 06:59 18:59 Intake Total 1250 Output Total 0 Balance 1250 - Medications Medications: Current Medications Acetaminophen (Tylenol 650 Mg Supp) 650 mg [place] Q6 PRN PRN Reason: Fever >100.4 F Dextrose (Dextrose 50% Inj) 50 ml IVP ONCE PRN PRN Reason: Hypoglycemia Dextrose (Dextrose 50% Inj) 0 ml IV STAT PRN; Protocol PRN Reason: Hypoglycemia Protocol Dextrose (Glutose 15) 0 gm PO ONCE PRN; Protocol PRN Reason: Hypoglycemia Protocol Enoxaparin Sodium (Lovenox) 40 mg SC DAILY [facility] Last Admin: 05/23/18 09:37 Dose: 40 mg Glucagon (Glucagen Diagnostic Kit) 0 mg IM STAT PRN; Protocol PRN Reason: Hypoglycemia Protocol Metronidazole (Flagyl) 500 mg in 100 mls @ 100 mls/hr IVPB Q8H [facility] PRN Reason: Protocol Last Admin: 05/23/18 06:17 Dose: 100 mls/hr Dextrose (Dextrose 5% In Water 1000 Ml) 1,000 mls @ 0 mls/hr IV .Q0M PRN; Protocol; Per Protocol PRN Reason: Hypoglycemia Protocol Aztreonam 2 gm/ Sodium (Chloride) 100 mls @ 200 mls/hr IVPB Q8H [facility] PRN Reason: Protocol Last Admin: 05/23/18 01:32 Dose: 200 mls/hr Vancomycin/Sodium Chloride (Vancomycin 1 Gm/Ns 200 Ml) 1 gm in 200 mls @ 133 mls/hr IVPB Q12H [facility] PRN Reason: Protocol Stop: 05/26/18 20:01 Last Admin: 05/22/18 21:51 Dose: 133 mls/hr Sodium Chloride (Sodium Chloride 0.9%) 1,000 mls @ 60 mls/hr IV .[id number] [facility] Insulin Aspart (Novolog) 3 unit SC AC [facility] Insulin Aspart (Novolog) 0 unit SC ACHS [facility] PRN Reason: Protocol Insulin Glargine (Lantus) 5 unit SC HS [facility] Losartan Potassium (Cozaar) 50 mg PO DAILY [facility] Last Admin: 05/23/18 09:36 Dose: 50 mg Ondansetron HCl (Zofran Inj) 4 mg IVP Q6H PRN PRN Reason: Nausea/Vomiting Oxycodone/Acetaminophen (Percocet 5/325 Mg Tab) 1 tab PO Q4H PRN PRN Reason: Pain, moderate (4-7) Stop: 05/26/18 09:54 Pantoprazole Sodium (Protonix Inj) 40 mg IVP DAILY [facility] Last Admin: 05/23/18 09:36 Dose: 40 mg Saccharomyces Boulardii (Florastor) 250 mg PO Q12 [facility] Last Admin: 05/23/18 09:36 Dose: 250 mg Senna/Docusate Sodium (Senokot S 50 Mg-8.6 Mg) 1 tab PO BID [facility] Zinc Acetate/Diphenhydramine (Benadryl 1% Zinc Acetate -0.1%) 1 cre TOP DAILY PRN PRN Reason: Itching / Pruritus - Labs Labs: 05/23/18 09:02 05/23/18 09:02 PT 12.9 SECONDS (9.7-12.2) H 05/18/18 07:17 INR 1.2 05/18/18 07:17 APTT 36 SECONDS (21-34) H 05/18/18 07:17 Attending/Attestation - Attestation Notes (Text): Please disregard this note. Resident has entered note on the wrong patient. Please disregard.
[2018-05-23] MEDS: Aztreonam 2 GM in Sodium Chloride 0.9% 100 ML IVPB SCH ×3 (01:32→17:45)
[2018-05-23] MEDS: Dextrose 5%/0.45% NS 1,000 ML IV SCH ×3 (05:41→11:40)
[2018-05-23] MEDS: metroNIDAZOLE IV 500 mg/100 ml 500 MG/100 ML BAG IVPB SCH ×3 (06:17→22:06)
[2018-05-23] MEDS: (Novolin R) Insulin Human Regular 100 units/ml vial SC SCH (07:55)
[2018-05-23 09:17] LABS: BASO # 0.1 K/uL (0.0-0.2); BASO % 0.4 % (0.0-2.0); EOS # 0.3 K/uL (0.0-0.7); EOS % 2.4 % (0.0-4.0); HEMOGLOBIN 10.1 g/dL (11.0-16.0); LYMPH % 14.3 % (20.0-40.0); MEAN CELL VOLUME 75.3 fL (81.0-99.0); MEAN CORPUSCULAR HEMOGLOBIN 25.8 pg (27.0-31.0); MEAN CORPUSCULAR HGB CONC 34.3 g/dL (33.0-37.0); MEAN PLATELET VOLUME 8.4 fL (7.2-11.7); MONO % 7.1 % (0.0-10.0); NEUT # 10.3 K/uL (1.8-7.0); NEUT % 75.8 % (50.0-75.0); NRBC % 0.1 % (0.0-2.0); RBC 3.9 Mil/uL (3.80-5.20); RED CELL DISTRIBUTION WIDTH 15.6 % (11.5-14.5); WHITE BLOOD COUNT 13.6 K/uL (4.8-10.8)
[2018-05-23] MEDS: Saccharomyces Boulardi 250 mg Cap PO SCH ×2 (09:36→22:00)
[2018-05-23] MEDS: Enoxaparin 40 mg Syringe SC SCH (09:37)
[2018-05-23 09:43] LABS: ALT/SGPT 67 U/L (9-52); AST/SGOT 17 U/L (14-36); BLOOD UREA NITROGEN 5 mg/dL (7-17); CALCIUM 8.9 mg/dl (8.6-10.4); GFR NON-AFRICAN AMERICAN > 60; LIPASE 216 U/L (23-300)
[2018-05-23] MEDS ORDERED: Dextrose 5%/0.45% NS 1,000 ML IV SCH (09:52)
[2018-05-23] MEDS ORDERED: Oxycodone/Acetaminophen 5/325 mg Tab PO PRN (09:53)
[2018-05-23] MEDS ORDERED: Sodium Chloride 0.9% 1,000 ML IV SCH (10:30)
--- NOTE | 2018-05-23 11:05 | CP.PCM.PN ---
Subjective - Date & Time of Evaluation Date of Evaluation: 05/23/18 Time of Evaluation: 10:45 - Subjective Subjective: F/u cholecystitis. Sitting in chair. Family members are present. Reports less abdom pain. Denies fever, chills, SZ, myalgia, RB, melena, hematuria, hemoptysis Objective - Vital Signs/Intake and Output Vital Signs (last 24 hours): Temp Pulse Resp BP Pulse Ox 98.8 F 78 20 155/79 H 96 05/23/18 00:00 05/23/18 00:00 05/23/18 00:00 05/23/18 00:00 05/23/18 00:00 Intake and Output: 05/23/18 05/23/18 06:59 18:59 Intake Total 1250 Output Total 0 Balance 1250 - Medications Medications: Current Medications Acetaminophen (Tylenol 650 Mg Supp) 650 mg [place] Q6 PRN PRN Reason: Fever >100.4 F Dextrose (Dextrose 50% Inj) 50 ml IVP ONCE PRN PRN Reason: Hypoglycemia Dextrose (Dextrose 50% Inj) 0 ml IV STAT PRN; Protocol PRN Reason: Hypoglycemia Protocol Dextrose (Glutose 15) 0 gm PO ONCE PRN; Protocol PRN Reason: Hypoglycemia Protocol Enoxaparin Sodium (Lovenox) 40 mg SC DAILY [facility] Last Admin: 05/23/18 09:37 Dose: 40 mg Glucagon (Glucagen Diagnostic Kit) 0 mg IM STAT PRN; Protocol PRN Reason: Hypoglycemia Protocol Metronidazole (Flagyl) 500 mg in 100 mls @ 100 mls/hr IVPB Q8H [facility] PRN Reason: Protocol Last Admin: 05/23/18 06:17 Dose: 100 mls/hr Dextrose (Dextrose 5% In Water 1000 Ml) 1,000 mls @ 0 mls/hr IV .Q0M PRN; Protocol; Per Protocol PRN Reason: Hypoglycemia Protocol Aztreonam 2 gm/ Sodium (Chloride) 100 mls @ 200 mls/hr IVPB Q8H [facility] PRN Reason: Protocol Last Admin: 05/23/18 01:32 Dose: 200 mls/hr Vancomycin/Sodium Chloride (Vancomycin 1 Gm/Ns 200 Ml) 1 gm in 200 mls @ 133 mls/hr IVPB Q12H [facility] PRN Reason: Protocol Stop: 05/26/18 20:01 Last Admin: 05/22/18 21:51 Dose: 133 mls/hr Sodium Chloride (Sodium Chloride 0.9%) 1,000 mls @ 60 mls/hr IV .[id number] [facility] Insulin Aspart (Novolog) 3 unit SC AC [facility] Insulin Aspart (Novolog) 0 unit SC ACHS [facility] PRN Reason: Protocol Insulin Glargine (Lantus) 5 unit SC HS [facility] Losartan Potassium (Cozaar) 50 mg PO DAILY [facility] Last Admin: 05/23/18 09:36 Dose: 50 mg Ondansetron HCl (Zofran Inj) 4 mg IVP Q6H PRN PRN Reason: Nausea/Vomiting Oxycodone/Acetaminophen (Percocet 5/325 Mg Tab) 1 tab PO Q4H PRN PRN Reason: Pain, moderate (4-7) Stop: 05/26/18 09:54 Pantoprazole Sodium (Protonix Inj) 40 mg IVP DAILY [facility] Last Admin: 05/23/18 09:36 Dose: 40 mg Saccharomyces Boulardii (Florastor) 250 mg PO Q12 [facility] Last Admin: 05/23/18 09:36 Dose: 250 mg Senna/Docusate Sodium (Senokot S 50 Mg-8.6 Mg) 1 tab PO BID [facility] Zinc Acetate/Diphenhydramine (Benadryl 1% Zinc Acetate -0.1%) 1 cre TOP DAILY PRN PRN Reason: Itching / Pruritus - Labs Labs: 05/23/18 09:02 05/23/18 09:02 PT 12.9 SECONDS (9.7-12.2) H 05/18/18 07:17 INR 1.2 05/18/18 07:17 APTT 36 SECONDS (21-34) H 05/18/18 07:17 - Constitutional Appears: Non-toxic - Respiratory Exam Respiratory Exam: Clear to Ausculation Bilateral - Cardiovascular Exam Cardiovascular Exam: RRR - GI/Abdominal Exam GI & Abdominal Exam: Soft, Tenderness, Normal Bowel Sounds. absent: Guarding, Mass, Rebound Additional comments: Mild RUQ tenderness - Neurological Exam Neurological Exam: Alert, Awake, Oriented x3 Assessment and Plan (1) Pancreatitis Status: Acute (2) Choledocholithiasis Assessment & Plan: s/p dust exploration. LFTs improving. Status: Acute (3) Cough Status: Acute (4) Leukocytosis Assessment & Plan: Improving Status: Acute (5) Abnormal LFTs Status: Acute
[2018-05-23] MEDS: Vancomycin 1 gm/NS 200 ml 1 GM/200 ML BAG IVPB SCH ×2 (11:14→19:52)
[2018-05-23] MEDS ORDERED: (Novolog) Insulin Aspart, Recombinant 100 u/ml 10 ml vial SC SCH (11:30)
[2018-05-23] MEDS: (Novolog) Insulin Aspart, Recombinant 100 u/ml 10 ml vial SC SCH ×5 (11:45→22:01)
[2018-05-23] MEDS: Docusate-Senna 50 mg-8.6 mg Tab PO SCH ×2 (11:57→17:53)
[2018-05-23 13:34] LABS: SQUAMOUS EPITHIAL 6 /hpf (0-5); URINE BACTERIA RARE (<OCC); URINE BILIRUBIN NEGATIVE (NEGATIVE); URINE BLOOD NEGATIVE (NEGATIVE); URINE CLARITY Clear (Clear); URINE COLOR Yellow (YELLOW); URINE GLUCOSE (UA) 3+ mg/dL (Normal); URINE LEUKOCYTE ESTERASE NEG Leu/uL (Negative); URINE PROTEIN NEGATIVE (NEGATIVE)
--- NOTE | 2018-05-23 15:48 | CP.PCM.PN ---
Subjective - Date & Time of Evaluation Date of Evaluation: 05/23/18 Time of Evaluation: 07:00 - Subjective Subjective: 62F presented w/ chief complaint of sharp RUQ pain. CT showed distended CBD with intra-ductal choledocholithiasis and resultant dilation of both intra- hepatic and extra-hepatic ducts. Underwent cholecystectomy Post op having leukocytosis On azactam and flagyl ? allergy to Penicillin less abd pain no fever wbc trrending down Objective - Vital Signs/Intake and Output Vital Signs (last 24 hours): Temp Pulse Resp BP Pulse Ox 98.8 F 78 20 155/79 H 96 05/23/18 00:00 05/23/18 00:00 05/23/18 00:00 05/23/18 00:00 05/23/18 00:00 Intake and Output: 05/23/18 05/23/18 06:59 18:59 Intake Total 1250 1080 Output Total 0 0 Balance 1250 1080 - Medications Medications: Current Medications Acetaminophen (Tylenol 650 Mg Supp) 650 mg [place] Q6 PRN PRN Reason: Fever >100.4 F Dextrose (Dextrose 50% Inj) 50 ml IVP ONCE PRN PRN Reason: Hypoglycemia Dextrose (Dextrose 50% Inj) 0 ml IV STAT PRN; Protocol PRN Reason: Hypoglycemia Protocol Dextrose (Glutose 15) 0 gm PO ONCE PRN; Protocol PRN Reason: Hypoglycemia Protocol Enoxaparin Sodium (Lovenox) 40 mg SC DAILY [facility] Last Admin: 05/23/18 09:37 Dose: 40 mg Glucagon (Glucagen Diagnostic Kit) 0 mg IM STAT PRN; Protocol PRN Reason: Hypoglycemia Protocol Metronidazole (Flagyl) 500 mg in 100 mls @ 100 mls/hr IVPB Q8H [facility] PRN Reason: Protocol Last Admin: 05/23/18 14:12 Dose: 100 mls/hr Dextrose (Dextrose 5% In Water 1000 Ml) 1,000 mls @ 0 mls/hr IV .Q0M PRN; Protocol; Per Protocol PRN Reason: Hypoglycemia Protocol Aztreonam 2 gm/ Sodium (Chloride) 100 mls @ 200 mls/hr IVPB Q8H [facility] PRN Reason: Protocol Last Admin: 05/23/18 11:38 Dose: 200 mls/hr Vancomycin/Sodium Chloride (Vancomycin 1 Gm/Ns 200 Ml) 1 gm in 200 mls @ 133 mls/hr IVPB Q12H [facility] PRN Reason: Protocol Stop: 05/26/18 20:01 Last Admin: 05/23/18 11:14 Dose: 133 mls/hr Sodium Chloride (Sodium Chloride 0.9%) 1,000 mls @ 60 mls/hr IV .[id number] [facility] Last Admin: 05/23/18 11:39 Dose: 60 mls/hr Insulin Aspart (Novolog) 3 unit SC AC [facility] Last Admin: 05/23/18 11:45 Dose: 3 unit Insulin Aspart (Novolog) 0 unit SC ACHS [facility] PRN Reason: Protocol Last Admin: 05/23/18 11:46 Dose: 6 unit Insulin Glargine (Lantus) 5 unit SC HS [facility] Losartan Potassium (Cozaar) 50 mg PO DAILY [facility] Last Admin: 05/23/18 09:36 Dose: 50 mg Ondansetron HCl (Zofran Inj) 4 mg IVP Q6H PRN PRN Reason: Nausea/Vomiting Oxycodone/Acetaminophen (Percocet 5/325 Mg Tab) 1 tab PO Q4H PRN PRN Reason: Pain, moderate (4-7) Stop: 05/26/18 09:54 Pantoprazole Sodium (Protonix Inj) 40 mg IVP DAILY [facility] Last Admin: 05/23/18 09:36 Dose: 40 mg Saccharomyces Boulardii (Florastor) 250 mg PO Q12 [facility] Last Admin: 05/23/18 09:36 Dose: 250 mg Senna/Docusate Sodium (Senokot S 50 Mg-8.6 Mg) 1 tab PO BID [facility] Last Admin: 05/23/18 11:57 Dose: 1 tab Zinc Acetate/Diphenhydramine (Benadryl 1% Zinc Acetate -0.1%) 1 cre TOP DAILY PRN PRN Reason: Itching / Pruritus - Labs Labs: 05/23/18 09:02 05/23/18 09:02 PT 12.9 SECONDS (9.7-12.2) H 05/18/18 07:17 INR 1.2 05/18/18 07:17 APTT 36 SECONDS (21-34) H 05/18/18 07:17 - Constitutional Appears: Non-toxic, Chronically Ill - Head Exam Head Exam: NORMOCEPHALIC - Eye Exam Eye Exam: PERRL - ENT Exam ENT Exam: Mucous Membranes Dry - Neck Exam Neck Exam: absent: Lymphadenopathy - Respiratory Exam Respiratory Exam: Decreased Breath Sounds - Cardiovascular Exam Cardiovascular Exam: REGULAR RHYTHM - GI/Abdominal Exam GI & Abdominal Exam: Distended, Soft. absent: Tenderness Assessment and Plan (1) Abnormal LFTs Status: Acute (2) Choledocholithiasis Status: Acute (3) Pancreatitis Status: Acute - Assessment and Plan (Free Text) Assessment: cont empiric rx min 7 days
[2018-05-23] MEDS: (Lantus) Insulin Glargine, Recombinant SC SCH (22:00)
--- NOTE | 2018-05-23 22:22 | CP.PCM.PN ---
Subjective - Date & Time of Evaluation Date of Evaluation: 05/23/18 Time of Evaluation: 07:35 - Subjective Subjective: Patient seen and examined. No acute events over night. Tolerating liquid diet. Denies abdominal pain. No output into CECY drain. Objective - Vital Signs/Intake and Output Vital Signs (last 24 hours): Temp Pulse Resp BP Pulse Ox 99 F 80 20 153/73 H 96 05/23/18 17:49 05/23/18 17:49 05/23/18 17:49 05/23/18 17:49 05/23/18 17:49 Intake and Output: 05/23/18 05/24/18 18:59 06:59 Intake Total 1080 Output Total 0 Balance 1080 - Medications Medications: Current Medications Acetaminophen (Tylenol 650 Mg Supp) 650 mg [place] Q6 PRN PRN Reason: Fever >100.4 F Dextrose (Dextrose 50% Inj) 50 ml IVP ONCE PRN PRN Reason: Hypoglycemia Dextrose (Dextrose 50% Inj) 0 ml IV STAT PRN; Protocol PRN Reason: Hypoglycemia Protocol Dextrose (Glutose 15) 0 gm PO ONCE PRN; Protocol PRN Reason: Hypoglycemia Protocol Enoxaparin Sodium (Lovenox) 40 mg SC DAILY [facility] Last Admin: 05/23/18 09:37 Dose: 40 mg Glucagon (Glucagen Diagnostic Kit) 0 mg IM STAT PRN; Protocol PRN Reason: Hypoglycemia Protocol Metronidazole (Flagyl) 500 mg in 100 mls @ 100 mls/hr IVPB Q8H [facility] PRN Reason: Protocol Last Admin: 05/23/18 22:06 Dose: 100 mls/hr Aztreonam 2 gm/ Sodium (Chloride) 100 mls @ 200 mls/hr IVPB Q8H [facility] PRN Reason: Protocol Last Admin: 05/23/18 17:45 Dose: 200 mls/hr Vancomycin/Sodium Chloride (Vancomycin 1 Gm/Ns 200 Ml) 1 gm in 200 mls @ 133 mls/hr IVPB Q12H [facility] PRN Reason: Protocol Stop: 05/26/18 20:01 Last Admin: 05/23/18 19:52 Dose: 133 mls/hr Sodium Chloride (Sodium Chloride 0.9%) 1,000 mls @ 60 mls/hr IV .[id number] [facility] Last Admin: 05/23/18 11:39 Dose: 60 mls/hr Insulin Aspart (Novolog) 3 unit SC AC [facility] Last Admin: 05/23/18 17:46 Dose: 3 unit Insulin Aspart (Novolog) 0 unit SC ACHS [facility] PRN Reason: Protocol Last Admin: 05/23/18 22:01 Dose: Not Given Insulin Glargine (Lantus) 5 unit SC HS [facility] Last Admin: 05/23/18 22:00 Dose: 5 units Losartan Potassium (Cozaar) 50 mg PO DAILY [facility] Last Admin: 05/23/18 09:36 Dose: 50 mg Ondansetron HCl (Zofran Inj) 4 mg IVP Q6H PRN PRN Reason: Nausea/Vomiting Oxycodone/Acetaminophen (Percocet 5/325 Mg Tab) 1 tab PO Q4H PRN PRN Reason: Pain, moderate (4-7) Stop: 05/26/18 09:54 Pantoprazole Sodium (Protonix Inj) 40 mg IVP DAILY [facility] Last Admin: 05/23/18 09:36 Dose: 40 mg Saccharomyces Boulardii (Florastor) 250 mg PO Q12 [facility] Last Admin: 05/23/18 22:00 Dose: 250 mg Senna/Docusate Sodium (Senokot S 50 Mg-8.6 Mg) 1 tab PO BID [facility] Last Admin: 05/23/18 17:53 Dose: 1 tab Zinc Acetate/Diphenhydramine (Benadryl 1% Zinc Acetate -0.1%) 1 cre TOP DAILY PRN PRN Reason: Itching / Pruritus - Labs Labs: 05/23/18 09:02 05/23/18 09:02 PT 12.9 SECONDS (9.7-12.2) H 05/18/18 07:17 INR 1.2 05/18/18 07:17 APTT 36 SECONDS (21-34) H 05/18/18 07:17 - Constitutional Appears: No Acute Distress - Head Exam Head Exam: NORMOCEPHALIC - Eye Exam Eye Exam: EOMI, Normal appearance - Respiratory Exam Respiratory Exam: NORMAL BREATHING PATTERN - Cardiovascular Exam Cardiovascular Exam: +S1, +S2 - GI/Abdominal Exam GI & Abdominal Exam: Soft. absent: Distended, Firm, Guarding, Rigid - Neurological Exam Neurological Exam: Alert, Awake, Oriented x3 - Skin Skin Exam: Dry, Intact, Warm Assessment and Plan - Assessment and Plan (Free Text) Assessment: 62F with choledocholithiasis and gallstone pancreatitis s/p CBD exploration POD4 Plan: Low fat diet IVF C/w ABx as per ID Leukocytosis trending down PO analgesic C/w anti-emetics prn Trend LFT's- downtrending Encourage incentive spirometer use OOB to chair Encourage Ambulation PT DVT ppx D/w Dr. Rolando Cruz PGY3
[2018-05-24] MEDS: Aztreonam 2 GM in Sodium Chloride 0.9% 100 ML IVPB SCH ×3 (01:17→18:04)
[2018-05-24] MEDS: metroNIDAZOLE IV 500 mg/100 ml 500 MG/100 ML BAG IVPB SCH ×3 (06:09→22:08)
--- NOTE | 2018-05-24 07:22 | CP.PCM.PN ---
Subjective - Date & Time of Evaluation Date of Evaluation: 05/24/18 Time of Evaluation: 06:30 - Subjective Subjective: PGY-1 general surgery note for Dr Marshall Patient is seen and examined at bedside. Patient reports no acute events overnight. Patient is eating, denies nausea or vomiting, fever or chills. Patient has not had a bowel movements. Patient is tolerating regular diet. Right sided charan drain output is 5 cc in past 7 hours. Objective - Vital Signs/Intake and Output Vital Signs (last 24 hours): Temp Pulse Resp BP Pulse Ox 98.8 F 81 20 157/83 H 98 05/24/18 00:00 05/24/18 00:00 05/24/18 00:00 05/24/18 00:00 05/24/18 00:00 Intake and Output: 05/24/18 05/24/18 06:59 18:59 Intake Total 1740 Output Total 0 Balance 1740 - Medications Medications: Current Medications Acetaminophen (Tylenol 650 Mg Supp) 650 mg [place] Q6 PRN PRN Reason: Fever >100.4 F Dextrose (Dextrose 50% Inj) 50 ml IVP ONCE PRN PRN Reason: Hypoglycemia Dextrose (Dextrose 50% Inj) 0 ml IV STAT PRN; Protocol PRN Reason: Hypoglycemia Protocol Dextrose (Glutose 15) 0 gm PO ONCE PRN; Protocol PRN Reason: Hypoglycemia Protocol Enoxaparin Sodium (Lovenox) 40 mg SC DAILY [facility] Last Admin: 05/23/18 09:37 Dose: 40 mg Glucagon (Glucagen Diagnostic Kit) 0 mg IM STAT PRN; Protocol PRN Reason: Hypoglycemia Protocol Metronidazole (Flagyl) 500 mg in 100 mls @ 100 mls/hr IVPB Q8H [facility] PRN Reason: Protocol Last Admin: 05/24/18 06:09 Dose: 100 mls/hr Aztreonam 2 gm/ Sodium (Chloride) 100 mls @ 200 mls/hr IVPB Q8H [facility]ID PRN Reason: Protocol Last Admin: 05/24/18 01:17 Dose: 200 mls/hr Vancomycin/Sodium Chloride (Vancomycin 1 Gm/Ns 200 Ml) 1 gm in 200 mls @ 133 mls/hr IVPB Q12H [facility]ID PRN Reason: Protocol Stop: 05/26/18 20:01 Last Admin: 05/23/18 19:52 Dose: 133 mls/hr Insulin Aspart (Novolog) 3 unit SC AC [facility] Last Admin: 05/23/18 17:46 Dose: 3 unit Insulin Aspart (Novolog) 0 unit SC ACHS [facility] PRN Reason: Protocol Last Admin: 05/23/18 22:01 Dose: Not Given Insulin Glargine (Lantus) 5 unit SC HS [facility] Last Admin: 05/23/18 22:00 Dose: 5 units Losartan Potassium (Cozaar) 50 mg PO DAILY [facility] Last Admin: 05/23/18 09:36 Dose: 50 mg Ondansetron HCl (Zofran Inj) 4 mg IVP Q6H PRN PRN Reason: Nausea/Vomiting Oxycodone/Acetaminophen (Percocet 5/325 Mg Tab) 1 tab PO Q4H PRN PRN Reason: Pain, moderate (4-7) Stop: 05/26/18 09:54 Pantoprazole Sodium (Protonix Inj) 40 mg IVP DAILY [facility] Last Admin: 05/23/18 09:36 Dose: 40 mg Saccharomyces Boulardii (Florastor) 250 mg PO Q12 [facility] Last Admin: 05/23/18 22:00 Dose: 250 mg Senna/Docusate Sodium (Senokot S 50 Mg-8.6 Mg) 1 tab PO BID [facility] Last Admin: 05/23/18 17:53 Dose: 1 tab Zinc Acetate/Diphenhydramine (Benadryl 1% Zinc Acetate -0.1%) 1 cre TOP DAILY PRN PRN Reason: Itching / Pruritus - Labs Labs: 05/23/18 09:02 05/23/18 09:02 PT 12.9 SECONDS (9.7-12.2) H 05/18/18 07:17 INR 1.2 05/18/18 07:17 APTT 36 SECONDS (21-34) H 05/18/18 07:17 - Constitutional Appears: Non-toxic, No Acute Distress - Head Exam Head Exam: ATRAUMATIC, NORMAL INSPECTION, NORMOCEPHALIC - Eye Exam Eye Exam: EOMI, Normal appearance - ENT Exam ENT Exam: Mucous Membranes Moist, Normal Exam - Neck Exam Neck Exam: Full ROM - Respiratory Exam Respiratory Exam: NORMAL BREATHING PATTERN. absent: Accessory Muscle Use, Respiratory Distress - GI/Abdominal Exam GI & Abdominal Exam: Soft. absent: Tenderness Additional comments: Right LQ charan drain in place - Extremities Exam Extremities Exam: Full ROM, Normal Inspection - Neurological Exam Neurological Exam: Alert, Awake, Oriented x3 - Psychiatric Exam Psychiatric exam: Normal Affect, Normal Mood - Skin Skin Exam: Intact, Normal Color, Warm Assessment and Plan - Assessment and Plan (Free Text) Assessment: 62F with choledocholithiasis and gallstone pancreatitis s/p CBD exploration POD5 Plan: - continue diet - Dulcolax 10mg GA x 1 dose - Stopped IVF - Consults with ID about po abx for discharge - continue pain meds as needed - continue trending LFTs - Encourage IS - Follow up with PT on recs for continuing PT home vs [facility] - F/U am labs - Possible DC tomorrow - Should follow up with Dr Marshall on Thursday05/28/18 for post op care Plan to be discussed with Dr Rolando Mayberry PGY-1
[2018-05-24] MEDS ORDERED: Magnesium Hydroxide Susp 30 ml UD PO ONE (07:26)
[2018-05-24 07:29] LABS: BASO # 0.1 K/uL (0.0-0.2); BASO % 0.6 % (0.0-2.0); EOS # 0.3 K/uL (0.0-0.7); EOS % 2.4 % (0.0-4.0); LYMPH # 2.5 K/uL (1.0-4.3); LYMPH % 20.2 % (20.0-40.0); MEAN CORPUSCULAR HEMOGLOBIN 25.7 pg (27.0-31.0); MEAN CORPUSCULAR HGB CONC 34.3 g/dL (33.0-37.0); MEAN PLATELET VOLUME 8.2 fL (7.2-11.7); MONO # 0.9 K/uL (0.0-0.8); MONO % 7.1 % (0.0-10.0); NEUT # 8.5 K/uL (1.8-7.0); NEUT % 69.7 % (50.0-75.0); RBC 3.89 Mil/uL (3.80-5.20); RED CELL DISTRIBUTION WIDTH 15.7 % (11.5-14.5); WHITE BLOOD COUNT 12.2 K/uL (4.8-10.8)
[2018-05-24 07:48] LABS: ALB/GLOB RATIO 0.9 (1.0-2.1); ALBUMIN 2.7 g/dL (3.5-5.0); ALT/SGPT 57 U/L (9-52); AST/SGOT 29 U/L (14-36); BLOOD UREA NITROGEN 6 mg/dL (7-17); GFR NON-AFRICAN AMERICAN > 60; LIPASE 232 U/L (23-300)
[2018-05-24] MEDS ORDERED: Potassium Chloride 20 mEq ER Tab PO ONE (08:15)
[2018-05-24] MEDS: (Novolog) Insulin Aspart, Recombinant 100 u/ml 10 ml vial SC SCH ×7 (08:42→22:01)
[2018-05-24] MEDS: Vancomycin 1 gm/NS 200 ml 1 GM/200 ML BAG IVPB SCH ×2 (08:43→19:39)
[2018-05-24] MEDS: Saccharomyces Boulardi 250 mg Cap PO SCH ×2 (09:16→21:49)
[2018-05-24] MEDS: Enoxaparin 40 mg Syringe SC SCH (09:16)
[2018-05-24] MEDS: Docusate-Senna 50 mg-8.6 mg Tab PO SCH ×2 (09:17→18:09)
--- NOTE | 2018-05-24 12:01 | CP.PCM.PN ---
Subjective - Date & Time of Evaluation Date of Evaluation: 05/24/18 Time of Evaluation: 07:00 - Subjective Subjective: less abd pain no fever wbc trrending down Objective - Vital Signs/Intake and Output Vital Signs (last 24 hours): Temp Pulse Resp BP Pulse Ox 98.4 F 80 20 165/80 H 98 05/24/18 08:22 05/24/18 08:22 05/24/18 08:22 05/24/18 08:22 05/24/18 08:22 Intake and Output: 05/24/18 05/24/18 06:59 18:59 Intake Total 1740 Output Total 0 Balance 1740 - Medications Medications: Current Medications Acetaminophen (Tylenol 650 Mg Supp) 650 mg [place] Q6 PRN PRN Reason: Fever >100.4 F Dextrose (Dextrose 50% Inj) 50 ml IVP ONCE PRN PRN Reason: Hypoglycemia Dextrose (Dextrose 50% Inj) 0 ml IV STAT PRN; Protocol PRN Reason: Hypoglycemia Protocol Dextrose (Glutose 15) 0 gm PO ONCE PRN; Protocol PRN Reason: Hypoglycemia Protocol Enoxaparin Sodium (Lovenox) 40 mg SC DAILY [facility] Last Admin: 05/24/18 09:16 Dose: 40 mg Glucagon (Glucagen Diagnostic Kit) 0 mg IM STAT PRN; Protocol PRN Reason: Hypoglycemia Protocol Metronidazole (Flagyl) 500 mg in 100 mls @ 100 mls/hr IVPB Q8H [facility] PRN Reason: Protocol Last Admin: 05/24/18 06:09 Dose: 100 mls/hr Aztreonam 2 gm/ Sodium (Chloride) 100 mls @ 200 mls/hr IVPB Q8H [facility] PRN Reason: Protocol Last Admin: 05/24/18 10:03 Dose: 200 mls/hr Vancomycin/Sodium Chloride (Vancomycin 1 Gm/Ns 200 Ml) 1 gm in 200 mls @ 133 mls/hr IVPB Q12H [facility] PRN Reason: Protocol Stop: 05/26/18 20:01 Last Admin: 05/24/18 08:43 Dose: 133 mls/hr Insulin Aspart (Novolog) 3 unit SC AC [facility] Last Admin: 05/24/18 08:42 Dose: 3 unit Insulin Aspart (Novolog) 0 unit SC ACHS [facility] PRN Reason: Protocol Last Admin: 05/24/18 08:42 Dose: 3 unit Insulin Glargine (Lantus) 5 unit SC HS [facility] Last Admin: 05/23/18 22:00 Dose: 5 units Losartan Potassium (Cozaar) 50 mg PO DAILY [facility] Last Admin: 05/24/18 09:16 Dose: 50 mg Ondansetron HCl (Zofran Inj) 4 mg IVP Q6H PRN PRN Reason: Nausea/Vomiting Oxycodone/Acetaminophen (Percocet 5/325 Mg Tab) 1 tab PO Q4H PRN PRN Reason: Pain, moderate (4-7) Stop: 05/26/18 09:54 Pantoprazole Sodium (Protonix Inj) 40 mg IVP DAILY [facility] Last Admin: 05/24/18 09:16 Dose: 40 mg Saccharomyces Boulardii (Florastor) 250 mg PO Q12 [facility] Last Admin: 05/24/18 09:16 Dose: 250 mg Senna/Docusate Sodium (Senokot S 50 Mg-8.6 Mg) 1 tab PO BID [facility] Last Admin: 05/24/18 09:17 Dose: 1 tab Zinc Acetate/Diphenhydramine (Benadryl 1% Zinc Acetate -0.1%) 1 cre TOP DAILY PRN PRN Reason: Itching / Pruritus - Labs Labs: 05/24/18 06:48 05/24/18 06:48 PT 12.9 SECONDS (9.7-12.2) H 05/18/18 07:17 INR 1.2 05/18/18 07:17 APTT 36 SECONDS (21-34) H 05/18/18 07:17 Assessment and Plan (1) Abnormal LFTs Status: Acute (2) Choledocholithiasis Status: Acute (3) Pancreatitis Status: Acute
--- NOTE | 2018-05-24 15:03 | CP.PCM.PN ---
Subjective - Date & Time of Evaluation Date of Evaluation: 05/24/18 Time of Evaluation: 14:59 - Subjective Subjective: f/u gallstone pancreatitis Clinically pt is doing well. Liver chemistries and bilirubin nearly normalized. Leukocytosis improving Some mild pain at cholecystectomy incisional site Objective - Vital Signs/Intake and Output Vital Signs (last 24 hours): Temp Pulse Resp BP Pulse Ox 98.4 F 80 20 165/80 H 98 05/24/18 08:22 05/24/18 08:22 05/24/18 08:22 05/24/18 08:22 05/24/18 08:22 Intake and Output: 05/24/18 05/24/18 06:59 18:59 Intake Total 1740 Output Total 0 Balance 1740 - Medications Medications: Current Medications Acetaminophen (Tylenol 650 Mg Supp) 650 mg [place] Q6 PRN PRN Reason: Fever >100.4 F Dextrose (Dextrose 50% Inj) 50 ml IVP ONCE PRN PRN Reason: Hypoglycemia Dextrose (Dextrose 50% Inj) 0 ml IV STAT PRN; Protocol PRN Reason: Hypoglycemia Protocol Dextrose (Glutose 15) 0 gm PO ONCE PRN; Protocol PRN Reason: Hypoglycemia Protocol Enoxaparin Sodium (Lovenox) 40 mg SC DAILY [facility] Last Admin: 05/24/18 09:16 Dose: 40 mg Glucagon (Glucagen Diagnostic Kit) 0 mg IM STAT PRN; Protocol PRN Reason: Hypoglycemia Protocol Metronidazole (Flagyl) 500 mg in 100 mls @ 100 mls/hr IVPB Q8H [facility] PRN Reason: Protocol Last Admin: 05/24/18 14:34 Dose: 100 mls/hr Aztreonam 2 gm/ Sodium (Chloride) 100 mls @ 200 mls/hr IVPB Q8H [facility] PRN Reason: Protocol Last Admin: 05/24/18 10:03 Dose: 200 mls/hr Vancomycin/Sodium Chloride (Vancomycin 1 Gm/Ns 200 Ml) 1 gm in 200 mls @ 133 mls/hr IVPB Q12H [facility] PRN Reason: Protocol Stop: 05/26/18 20:01 Last Admin: 05/24/18 08:43 Dose: 133 mls/hr Insulin Aspart (Novolog) 3 unit SC AC [facility] Last Admin: 05/24/18 12:30 Dose: 3 unit Insulin Aspart (Novolog) 0 unit SC ACHS [facility] PRN Reason: Protocol Last Admin: 05/24/18 12:30 Dose: 3 unit Insulin Glargine (Lantus) 5 unit SC HS [facility] Last Admin: 05/23/18 22:00 Dose: 5 units Losartan Potassium (Cozaar) 100 mg PO DAILY [facility] Ondansetron HCl (Zofran Inj) 4 mg IVP Q6H PRN PRN Reason: Nausea/Vomiting Oxycodone/Acetaminophen (Percocet 5/325 Mg Tab) 1 tab PO Q4H PRN PRN Reason: Pain, moderate (4-7) Stop: 05/26/18 09:54 Pantoprazole Sodium (Protonix Inj) 40 mg IVP DAILY [facility] Last Admin: 05/24/18 09:16 Dose: 40 mg Saccharomyces Boulardii (Florastor) 250 mg PO Q12 [facility] Last Admin: 05/24/18 09:16 Dose: 250 mg Senna/Docusate Sodium (Senokot S 50 Mg-8.6 Mg) 1 tab PO BID [facility] Last Admin: 05/24/18 09:17 Dose: 1 tab Zinc Acetate/Diphenhydramine (Benadryl 1% Zinc Acetate -0.1%) 1 cre TOP DAILY PRN PRN Reason: Itching / Pruritus - Labs Labs: 05/24/18 06:48 05/24/18 06:48 PT 12.9 SECONDS (9.7-12.2) H 05/18/18 07:17 INR 1.2 05/18/18 07:17 APTT 36 SECONDS (21-34) H 05/18/18 07:17 - Constitutional Appears: Well, No Acute Distress - Eye Exam Eye Exam: absent: Scleral icterus - Respiratory Exam Respiratory Exam: Clear to Ausculation Bilateral - Cardiovascular Exam Cardiovascular Exam: REGULAR RHYTHM - GI/Abdominal Exam GI & Abdominal Exam: Soft. absent: Tenderness, Mass (Large RUQ surgical scar with michael and incisional tenderness) Assessment and Plan (1) Pancreatitis Assessment & Plan: resolved S/P Cholecystectomy, CBD stent (Dr Bradley) Will need stent removal/replacement in 8-12 weeks as outpatient Status: Acute
--- NOTE | 2018-05-24 17:04 | CP.PCM.PN ---
Subjective - Date & Time of Evaluation Date of Evaluation: 05/24/18 Time of Evaluation: 07:00 - Subjective Subjective: PGY-1 Medicine Progress note for Dr. Tabares Patient seen and examined at bedside today with family present in no acute distress. No overnight events reported. Patient is s/p cholecystectomy POD #5. Patient reports abdominal pain is resolved at rest and minimally painful to touch. Patient tolerated full meal of pasta last night with no nausea, vomiting , diarrhea or worsening abdominal pain. Patient reports she has been urinating well, and had BMx1 today. Patient denies fever, chest pain, shortness of breath , nausea, vomiting or headache. Objective - Vital Signs/Intake and Output Vital Signs (last 24 hours): Temp Pulse Resp BP Pulse Ox 98.4 F 80 20 165/80 H 98 05/24/18 08:22 05/24/18 08:22 05/24/18 08:22 05/24/18 08:22 05/24/18 08:22 Intake and Output: 05/24/18 05/24/18 06:59 18:59 Intake Total 1740 1020 Output Total 0 0 Balance 1740 1020 - Medications Medications: Current Medications Acetaminophen (Tylenol 650 Mg Supp) 650 mg [place] Q6 PRN PRN Reason: Fever >100.4 F Dextrose (Dextrose 50% Inj) 50 ml IVP ONCE PRN PRN Reason: Hypoglycemia Dextrose (Dextrose 50% Inj) 0 ml IV STAT PRN; Protocol PRN Reason: Hypoglycemia Protocol Dextrose (Glutose 15) 0 gm PO ONCE PRN; Protocol PRN Reason: Hypoglycemia Protocol Enoxaparin Sodium (Lovenox) 40 mg SC DAILY [facility] Last Admin: 05/24/18 09:16 Dose: 40 mg Glucagon (Glucagen Diagnostic Kit) 0 mg IM STAT PRN; Protocol PRN Reason: Hypoglycemia Protocol Metronidazole (Flagyl) 500 mg in 100 mls @ 100 mls/hr IVPB Q8H [facility]ID PRN Reason: Protocol Last Admin: 05/24/18 14:34 Dose: 100 mls/hr Aztreonam 2 gm/ Sodium (Chloride) 100 mls @ 200 mls/hr IVPB Q8H [facility] PRN Reason: Protocol Last Admin: 05/24/18 10:03 Dose: 200 mls/hr Vancomycin/Sodium Chloride (Vancomycin 1 Gm/Ns 200 Ml) 1 gm in 200 mls @ 133 mls/hr IVPB Q12H [facility] PRN Reason: Protocol Stop: 05/26/18 20:01 Last Admin: 05/24/18 08:43 Dose: 133 mls/hr Insulin Aspart (Novolog) 3 unit SC AC [facility] Last Admin: 05/24/18 12:30 Dose: 3 unit Insulin Aspart (Novolog) 0 unit SC ACHS [facility] PRN Reason: Protocol Last Admin: 05/24/18 12:30 Dose: 3 unit Insulin Glargine (Lantus) 5 unit SC HS [facility] Last Admin: 05/23/18 22:00 Dose: 5 units Losartan Potassium (Cozaar) 100 mg PO DAILY [facility] Ondansetron HCl (Zofran Inj) 4 mg IVP Q6H PRN PRN Reason: Nausea/Vomiting Oxycodone/Acetaminophen (Percocet 5/325 Mg Tab) 1 tab PO Q4H PRN PRN Reason: Pain, moderate (4-7) Stop: 05/26/18 09:54 Pantoprazole Sodium (Protonix Inj) 40 mg IVP DAILY [facility] Last Admin: 05/24/18 09:16 Dose: 40 mg Saccharomyces Boulardii (Florastor) 250 mg PO Q12 [facility] Last Admin: 05/24/18 09:16 Dose: 250 mg Senna/Docusate Sodium (Senokot S 50 Mg-8.6 Mg) 1 tab PO BID [facility] Last Admin: 05/24/18 09:17 Dose: 1 tab Zinc Acetate/Diphenhydramine (Benadryl 1% Zinc Acetate -0.1%) 1 cre TOP DAILY PRN PRN Reason: Itching / Pruritus - Labs Labs: 05/24/18 06:48 05/24/18 06:48 PT 12.9 SECONDS (9.7-12.2) H 05/18/18 07:17 INR 1.2 05/18/18 07:17 APTT 36 SECONDS (21-34) H 05/18/18 07:17 - Constitutional Appears: Well, Non-toxic, No Acute Distress - Head Exam Head Exam: ATRAUMATIC, NORMOCEPHALIC - Eye Exam Eye Exam: EOMI - ENT Exam ENT Exam: Mucous Membranes Moist - Respiratory Exam Respiratory Exam: Clear to Ausculation Bilateral, NORMAL BREATHING PATTERN. absent: Rales, Rhonchi, Wheezes - Cardiovascular Exam Cardiovascular Exam: REGULAR RHYTHM, RRR, +S1, +S2. absent: Gallop, JVD, Murmur - GI/Abdominal Exam GI & Abdominal Exam: Soft, Tenderness, Normal Bowel Sounds. absent: Distended, Firm Additional comments: Mild tenderness to epigastrium, surgical dressings CDI overlying RUQ surgical site. Florentin drain in place draining nonturbulent bilious fluid. - Extremities Exam Additional comments: Well healing right thumb burn - Neurological Exam Neurological Exam: Awake, CN II-XII Intact, Oriented x3 - Psychiatric Exam Psychiatric exam: Normal Affect, Normal Mood - Skin Skin Exam: Dry, Intact, Normal Color Assessment and Plan - Assessment and Plan (Free Text) Assessment: 62 yo F with PMHx of HTN and DM admitted for choledocholithiasis and pancreatitis who is s/p cholecystectomy POD #5 Plan: 1) Leukocytosis Assessment/Plan * patient is postoperative day 5: lysis of adhesions, cholecystectomy, intraoperative cholangiogram explosion of common bile duct * blood cultures from May 21: no growth * Urine culture May 21: Enterococcus faecalis sensitive vancomycin * repeat UA contaminated * repeat urine Cx negative * Elevated pro-calcitonin * repeat pro calcitonin: 0.41 * Infectious disease consult * Patient is currently on IV antibiotic * Patient has been encourage incentive spirometer * Vancomycin 1 gram IV Q12H (active since 05/21/18) * Vanc trough 05/23 <5. * Aztreonam 2gm IV Q8H (active since 05/21/18) * Previously on Aztreonam 1 gram IV Q8H (since 05/18/18) * Flagyl 500mg IV Q8H (active since 05/18/18) * Discussed with Dr. Rios who recommends Levofloxacin 500 mg po daily upon d/ c to finish a 7 day course from 05/21/18 2) Choledocholithiasis Cholelithiasis Assessment/Plan * GI (Dr. Turcios covering Dr. López who was long goods drier 05/16/18) and Dr. Bradley ( covering Dr. Turcios given holiday) * General surgery (Dr. Marshall) on case * going for surgery with exploration of the CBD 05/19/18 * preoperative/intraoperative/postoperative per surgery * 05/19/18: lysis of adhesions, cholecystectomy, intraoperative cholangiogram explosion of common bile duct * Patient underwent ERCP with stent, recommended for surgery given gallstones, cbd dilation, unable to visualize cyst duct * CT abdomen/pelvis (05/16/2018) - Cholelithiasis with a contracted distorted gallbladder. Slightly thickened indurated gallbladder wall with some infiltration in the adjacent mesenteries suggesting acute cholecystitis. There is choledocholithiasis with dilatation of the CBD and intrahepatic biliary ductal dilatation * CXR (05/17/2018) - Poor inspiration with low lung volumes, crowded bronchovascular markings and minor bibasilar atelectasis * Abdominal Ultrasound (05/17/2018) - Mild hepatomegaly. Diffuse increased echogenicity in the liver may reflect hepatic steatosis however parenchymal infectious/inflammatory etiologies cannot be excluded. Cholelithiasis, mild diffuse dilation of the common bile duct without evidence for choledocholithiasis. * ERCP (05/17/18) - biliary stent placed. full report pending * MRCP (05/17/18): gallbladder appears compressed containing gallstones. Dilated common bile duct measuring approximately 8mm in diameter. Abrupt distal taper. tiny filling defect within the mid CBD measures ~5mm. Mild intrahepatic biliary fuctal dilatation. * EKG (05/17/2018): NSR * Elevated bilirubin, and transaminitis * Pain PRN: Morphine 4 mg q4h PRN * Nausea PRN: well controlled with Zofran 4 mg IVP q4h PRN, Reglan 5mg IVP q6h prn * Tylenol 650 mg rectally prn ordered for F temp > 100.4 * IV abx:Aztreonam 2 gm IVPB q8H and Flagyl 500 mg IVPB q8h 3) Pancreatitis, Gallstone Assessment/Plan * likely secondary to cholelithiasis * lipase OA 1739 * Patient is NPO for bowel rest * GI and general surgery on board * patient is on IV fluid 4) Hx of HTN Assessment/Plan * Home ASA 81mg po daily held d/t NPO status * Losartan 100 mg once day * Monitor BP 5) Hx of DM uncontrolled diabetes Assessment/Plan * a1c: 8.8 * Lipid panel: T, chol: 148, LDL: 92, HDL: 20 * Accucheck qacHS * Lantus 5 units daily at bedtime * NovoLog 3 units 3 times * NovoLog insulin sliding scale * Metformin held d/t NPO status * Increase home dose to 1000 BID upon d/c * Atorvastatin 20 mg po daily held d/t NPO status * hypoglycemic protocol 6) Transaminitis Assessment/Plan * improving 7) Prophylaxis * SCDs * Protonix 40 mg IV qd * On IV fluids * Lovenox 40mg subq daily Disposition: Patient is postoperative day 5 of lysis of adhesions, cholecystectomy, intraoperative cholangiogram explosion of common bile duct. Surgery has signed off. Post-op follow up with Surgery on Thursday with Dr. Marshall. White count is improving, liver function tests improving. Home physical therapy is set up through [facility]. d/w Dr. Rayshawn Llanes PGY-1
[2018-05-24] MEDS: (Lantus) Insulin Glargine, Recombinant SC SCH (21:49)
[2018-05-25] MEDS: Aztreonam 2 GM in Sodium Chloride 0.9% 100 ML IVPB SCH ×2 (01:44→09:35)
[2018-05-25 02:54] VITALS: PULSE 83; TEMP 98.8; O2SAT 94
[2018-05-25] MEDS: metroNIDAZOLE IV 500 mg/100 ml 500 MG/100 ML BAG IVPB SCH (06:03)
[2018-05-25 06:53] VITALS: BP 146/87
[2018-05-25] MEDS: (Novolog) Insulin Aspart, Recombinant 100 u/ml 10 ml vial SC SCH ×4 (07:51→11:59)
[2018-05-25 08:00] LABS: BASO # 0.1 K/uL (0.0-0.2); BASO % 0.8 % (0.0-2.0); EOS # 0.2 K/uL (0.0-0.7); EOS % 1.5 % (0.0-4.0); HEMOGLOBIN 10.7 g/dL (11.0-16.0); LYMPH % 17.1 % (20.0-40.0); MEAN CELL VOLUME 74.5 fL (81.0-99.0); MEAN CORPUSCULAR HEMOGLOBIN 25.6 pg (27.0-31.0); MEAN CORPUSCULAR HGB CONC 34.3 g/dL (33.0-37.0); MONO # 0.8 K/uL (0.0-0.8); MONO % 7.1 % (0.0-10.0); NEUT # 8.7 K/uL (1.8-7.0); NEUT % 73.5 % (50.0-75.0); NRBC % 0.1 % (0.0-2.0); RBC 4.17 Mil/uL (3.80-5.20); RED CELL DISTRIBUTION WIDTH 15.9 % (11.5-14.5); WHITE BLOOD COUNT 11.8 K/uL (4.8-10.8)
[2018-05-25 08:15] LABS: ALBUMIN 3.1 g/dL (3.5-5.0); ALT/SGPT 52 U/L (9-52); AST/SGOT 27 U/L (14-36); BLOOD UREA NITROGEN 9 mg/dL (7-17); GFR NON-AFRICAN AMERICAN > 60; LIPASE 294 U/L (23-300)
[2018-05-25] MEDS: Vancomycin 1 gm/NS 200 ml 1 GM/200 ML BAG IVPB SCH (09:04)
[2018-05-25] MEDS: Saccharomyces Boulardi 250 mg Cap PO SCH (09:09)
[2018-05-25] MEDS: Docusate-Senna 50 mg-8.6 mg Tab PO SCH (09:09)
[2018-05-25] MEDS: Enoxaparin 40 mg Syringe SC SCH (09:09)
--- NOTE | 2018-05-25 10:34 | CP.PCM.PN ---
Subjective - Date & Time of Evaluation Date of Evaluation: 05/25/18 Time of Evaluation: 10:15 - Subjective Subjective: Hospitalist Progress Note Patient was seen and examined at 10:15 AM 05/25/18 Bed 360 B Seen with the assistance of patient's daughter in law who was at bedside and translated in Somali Upon FULL ROS: NO dysphagia/odynopahgia NO soreness in throat NO cough/SOB/Wheezing NO sinus/nasal congestion NO fever/chills NO muscle aches/pains NO joint pain NO chest pain/palpation NO abdominal pain NO n/v/d/c: last normal bowel movement was this morning and she is passing flatus NO burning pain with urination NO MCKEON NO lightheadedness/dizziness NO paresthesias NO new changes in vision NO new changes in hearing Exam: General: AAOX3, NAD HEENT: NCA, EOMI, PERRLA, NO cervical/supraclavicular/submandibular lymphadenopathy, NO pharyngeal erythema/exudate, Nasal Turbinates are nonerythematous/nonedematous, Oral Mucosa is moist Cardio: NS1 and NS2, NO M/R/G Resp: CTA B/L, NO R/R/W GI: BSx4, Soft, NT, NO HSM, NO guarding/rebound tenderness Ext: Pulses are strong and equal, Capillary Refill is 2 seconds, NO edema Neuro: CN II through XII are grossly intact Assessments: 1). CholedoCholithiasis: S/P Biliary Stent 05/17/[address] Bradley and S/P Lapo Genia 05/19/[address] Marshall. No longer with pain. Moving bowels and passing flatus and tolerating diet. Schedule follow up with Dr. Marshall this Thursday for drain managment and with Dr. Bradley in 8 weeks to schedule stent removal 2). Pancreatitis: Likely secondary to #1. Lipase normalized. See #1 above 3). Transaminitis: Likelly secondary to #1. Down trending 4). Leukocytosis: downtrending, NO fever, Vitals stable, Blood culture 05/21/18 negative to date. Repeat Urine Culture negative. 5). Abnormal Electrolytes: normalized 6). HLD: hold off on statin for now until LFTs completely normalize 7). HTN: continue Cozaar which was increased to 100 mg PO 1x/day and will need repeat blood pressure measurement with follow up with PMD 8). DM 2: restart Metformin at 1,000 mg PO 2x/day 9). Constipation: resolved Patient has been cleared by Surgical Team for discharge. Patient has been taught by Nurse how to empty and care for CECY Drain and confirmed with Daughter In Law that patient is comfortable doing this. Explained all discharge instructions to Daughter In Law who conveyed them to patient and she expressed understanding. The following instructions were explained to patient and a copy will need to be provided to her in Somali upon discharge: 1). Schedule follow up with Surgeon Dr. Reji Marshall for this Thursday05/28/18 by calling his office [phone]. This is important to do to make sure that your drain will be managed/removed properly. Also Dr. Marshall will need to clear you to return to work. 2). Schedule follow up with Mortgage Loan Officer Originator Dr. Bradley to take place in 8 weeks by calling his office [phone]. This is important to do to make sure that your stent from the gallbladder area is removed. 3). Schedule follow up with your primary care physician to take place in the next 7 days. You will need to have your blood pressure remeasured through your primary care physician's office at that time to see if you need additional blood pressure medication. You will also need to have your liver enzymes rechecked through your doctor to make sure it is ok for your to restart your cholesterol medication. 4). Please have the following medications filled at your pharmacy on your way home from the hospital. Please use as directed. These are the only medications that you should be taking: Levaquin 500 mg, 1 tablet by mouth 1 time a day (8 AM) starting 05/26/18 until finished, Dispense #3, NO refills Losartan 100 mg, 1 tablet by mouth 1 time a day (8 AM), Dispense #30, NO refills Aspirin 81 mg, 1 tablet by mouth 1 time a day (8 AM), Dispense #30, NO refills Metformin 1,000 mg, 1 tablet by mouth 2 times a day with breakfast and dinner ( 8 AM and 8 PM), Dispense #60, NO refills 5). Please DO NOT take any cholesterol medications such as Atorvastatin until you are cleared to do so by your primary care physician 6). Please have a low sugar Algerian Yogurt containing probiotics everyday with lunch at 1 PM for the next 33 days. This will help to keep the good bacteria in your colon from dying from the antibiotic 7). Please make sure that you do NOT lay down or recline for at least 1 hour after your meals as this is the likely cause of the burning sensation under your breast bone after you eat. 8). Stay well hydrated with water. You must drink at least 3 liters of water a day. 9). Be happy, be well, follow the above instructions, and watch a good movie. It is suggested that you watch "My Family" with Alek Buschtts as it will put a smile on your face. Helio Tabares D.O. Objective - Vital Signs/Intake and Output Vital Signs (last 24 hours): Temp Pulse Resp BP Pulse Ox 98.8 F 83 20 146/87 94 L 05/25/18 00:00 05/25/18 00:00 05/25/18 00:00 05/25/18 00:00 05/25/18 00:00 Intake and Output: 05/25/18 05/25/18 06:59 18:59 Intake Total 600 Output Total 300 Balance 300 - Medications Medications: Current Medications Dextrose (Dextrose 50% Inj) 50 ml IVP ONCE PRN PRN Reason: Hypoglycemia Dextrose (Dextrose 50% Inj) 0 ml IV STAT PRN; Protocol PRN Reason: Hypoglycemia Protocol Dextrose (Glutose 15) 0 gm PO ONCE PRN; Protocol PRN Reason: Hypoglycemia Protocol Enoxaparin Sodium (Lovenox) 40 mg SC DAILY [facility] Last Admin: 05/25/18 09:09 Dose: 40 mg Glucagon (Glucagen Diagnostic Kit) 0 mg IM STAT PRN; Protocol PRN Reason: Hypoglycemia Protocol Metronidazole (Flagyl) 500 mg in 100 mls @ 100 mls/hr IVPB Q8H DAVID PRN Reason: Protocol Last Admin: 05/25/18 06:03 Dose: 100 mls/hr Aztreonam 2 gm/ Sodium (Chloride) 100 mls @ 200 mls/hr IVPB Q8H DAVID PRN Reason: Protocol Last Admin: 05/25/18 09:35 Dose: 200 mls/hr Vancomycin/Sodium Chloride (Vancomycin 1 Gm/Ns 200 Ml) 1 gm in 200 mls @ 133 mls/hr IVPB Q12H [facility] PRN Reason: Protocol Stop: 05/26/18 20:01 Last Admin: 05/25/18 09:04 Dose: 133 mls/hr Insulin Aspart (Novolog) 3 unit SC AC [facility] Last Admin: 05/25/18 07:51 Dose: 3 unit Insulin Aspart (Novolog) 0 unit SC ACHS DAVID PRN Reason: Protocol Last Admin: 05/25/18 07:52 Dose: 6 unit Insulin Glargine (Lantus) 5 unit SC HS [facility] Last Admin: 05/24/18 21:49 Dose: 5 units Losartan Potassium (Cozaar) 100 mg PO DAILY [facility] Last Admin: 05/25/18 09:09 Dose: 100 mg Ondansetron HCl (Zofran Inj) 4 mg IVP Q6H PRN PRN Reason: Nausea/Vomiting Oxycodone/Acetaminophen (Percocet 5/325 Mg Tab) 1 tab PO Q4H PRN PRN Reason: Pain, moderate (4-7) Stop: 05/26/18 09:54 Pantoprazole Sodium (Protonix Inj) 40 mg IVP DAILY [facility] Last Admin: 05/25/18 09:09 Dose: 40 mg Saccharomyces Boulardii (Florastor) 250 mg PO Q12 [facility] Last Admin: 05/25/18 09:09 Dose: 250 mg Senna/Docusate Sodium (Senokot S 50 Mg-8.6 Mg) 1 tab PO BID [facility] Last Admin: 05/25/18 09:09 Dose: 1 tab Zinc Acetate/Diphenhydramine (Benadryl 1% Zinc Acetate -0.1%) 1 cre TOP DAILY PRN PRN Reason: Itching / Pruritus - Labs Labs: 05/25/18 07:50 05/25/18 07:50 PT 12.9 SECONDS (9.7-12.2) H 05/18/18 07:17 INR 1.2 05/18/18 07:17 APTT 36 SECONDS (21-34) H 05/18/18 07:17
--- NOTE | 2018-05-25 11:21 | CP.PCM.DIS ---
Provider - Provider Date of Admission: 05/16/18 18:22 Attending physician: Helio Tabares MD Time Spent in preparation of Discharge (in minutes): 45 Diagnosis - Discharge Diagnosis (1) Choledocholithiasis Status: Acute (2) Pancreatitis Status: Acute Hospital Course - Lab Results Lab Results: Micro Results 05/23/18 13:16 Urine Urine Culture - Final No Growth (<1,000 CFU/ML) 05/21/18 13:21 Blood Blood Culture - Preliminary NO GROWTH AFTER 3 DAYS 05/21/18 13:59 Blood Blood Culture - Preliminary NO GROWTH AFTER 3 DAYS 05/21/18 21:04 Urine,Catheterized Urine Culture - Final Enterococcus Faecalis Enterococcus Faecium Most Recent Lab Values WBC 11.8 K/uL (4.8-10.8) H 05/25/18 07:50 RBC 4.17 Mil/uL (3.80-5.20) 05/25/18 07:50 Hgb 10.7 g/dL (11.0-16.0) L 05/25/18 07:50 Hct 31.1 % (34.0-47.0) L 05/25/18 07:50 MCV 74.5 fL (81.0-99.0) L 05/25/18 07:50 MCH 25.6 pg (27.0-31.0) L 05/25/18 07:50 MCHC 34.3 g/dL (33.0-37.0) 05/25/18 07:50 RDW 15.9 % (11.5-14.5) H 05/25/18 07:50 Plt Count 843 K/uL (130-400) H 05/25/18 07:50 MPV 8.0 fL (7.2-11.7) 05/25/18 07:50 Neut % (Auto) 73.5 % (50.0-75.0) 05/25/18 07:50 Lymph % (Auto) 17.1 % (20.0-40.0) L 05/25/18 07:50 [place]more % (Auto) 7.1 % (0.0-10.0) 05/25/18 07:50 Eos % (Auto) 1.5 % (0.0-4.0) 05/25/18 07:50 Baso % (Auto) 0.8 % (0.0-2.0) 05/25/18 07:50 Neut # (Auto) 8.7 K/uL (1.8-7.0) H 05/25/18 07:50 Lymph # (Auto) 2.0 K/uL (1.0-4.3) 05/25/18 07:50 Elmore # (Auto) 0.8 K/uL (0.0-0.8) 05/25/18 07:50 Eos # (Auto) 0.2 K/uL (0.0-0.7) 05/25/18 07:50 Baso # (Auto) 0.1 K/uL (0.0-0.2) 05/25/18 07:50 Neutrophils % (Manual) 83 % (50-75) H 05/21/18 08:34 Band Neutrophils % 1 % (0-2) 05/21/18 08:34 Lymphocytes % (Manual) 12 % (20-40) L 05/21/18 08:34 Reactive Lymphs % 1 % (0-0) H 05/20/18 06:43 Monocytes % (Manual) 2 % (0-10) 05/21/18 08:34 Eosinophils % (Manual) 2 % (0-4) 05/21/18 08:34 Platelet Estimate Increased (NORMAL) H 05/21/18 08:34 Large Platelets Present 05/21/18 08:34 Hypochromasia (manual) Slight 05/21/18 08:34 Poikilocytosis (manual Slight 05/21/18 08:34 Anisocytosis (manual) Slight 05/21/18 08:34 Target Cells Slight 05/21/18 08:34 PT 12.9 SECONDS (9.7-12.2) H 05/18/18 07:17 INR 1.2 05/18/18 07:17 APTT 36 SECONDS (21-34) H 05/18/18 07:17 Sodium 137 mmol/L (132-148) 05/25/18 07:50 Potassium 3.8 mmol/L (3.6-5.2) 05/25/18 07:50 Chloride 96 mmol/L (98-107) L 05/25/18 07:50 Carbon Dioxide 33 mmol/L (22-30) H 05/25/18 07:50 Anion Gap 12 (10-20) 05/25/18 07:50 BUN 9 mg/dL (7-17) 05/25/18 07:50 Creatinine 0.4 mg/dL (0.7-1.2) L 05/25/18 07:50 Est GFR ( Amer) > 60 05/25/18 07:50 Est GFR (Non-Af Amer) > 60 05/25/18 07:50 POC Glucose (mg/dL) 321 mg/dL (65-110) H 05/25/18 07:33 Random Glucose 290 mg/dL (65-105) H 05/25/18 07:50 Hemoglobin A1c 8.8 % (4.2-6.5) H 05/18/18 07:17 Calcium 9.0 mg/dl (8.6-10.4) 05/25/18 07:50 Phosphorus 3.3 mg/dL (2.5-4.5) 05/25/18 07:50 Magnesium 1.9 mg/dL (1.6-2.3) 05/25/18 07:50 Total Bilirubin 0.8 mg/dL (0.2-1.3) 05/25/18 07:50 AST 27 U/L (14-36) 05/25/18 07:50 ALT 52 U/L (9-52) 05/25/18 07:50 Alkaline Phosphatase 181 U/L (38-126) H 05/25/18 07:50 Total Protein 6.2 g/dL (6.3-8.3) L 05/25/18 07:50 Albumin 3.1 g/dL (3.5-5.0) L 05/25/18 07:50 Globulin 3.1 gm/dL (2.2-3.9) 05/25/18 07:50 Albumin/Globulin Ratio 1.0 (1.0-2.1) 05/25/18 07:50 Triglycerides 153 mg/dL (0-149) H 05/18/18 07:17 Cholesterol 148 mg/dL (0-199) 05/18/18 07:17 LDL Cholesterol Direct 92 mg/dL (0-129) 05/18/18 07:17 HDL Cholesterol 20 mg/dL (30-70) L 05/18/18 07:17 Amylase 138 U/L (30-110) H D 05/19/18 19:23 Lipase 294 U/L (23-300) 05/25/18 07:50 Alpha Fetoprotein 3.3 ng/mL (0.0-7.5) 05/17/18 16:50 Carcinoembryonic Ag 1.8 ng/mL (0-3.0) 05/17/18 16:50 CA 19-9 Antigen 159 U/mL (0-37) H 05/17/18 16:50 Procalcitonin 0.41 NG/ML (0.19-0.49) 05/24/18 06:48 Beta HCG, Quant < 2.39 mIU/ML 05/17/18 20:41 Urine Color Yellow (YELLOW) 05/23/18 13:16 Urine Clarity Clear (Clear) 05/23/18 13:16 Urine pH 6.0 (5.0-8.0) 05/23/18 13:16 Ur Specific [place] 1.015 (1.003-1.030) 05/23/18 13:16 Urine Protein Negative mg/dL (NEGATIVE) 05/23/18 13:16 Urine Glucose (UA) 3+ mg/dL (Normal) H 05/23/18 13:16 Urine Ketones 1+ mg/dL (NEGATIVE) H 05/23/18 13:16 Urine Blood Negative (NEGATIVE) 05/23/18 13:16 Urine Nitrate Negative (NEGATIVE) 05/23/18 13:16 Urine Bilirubin Negative (NEGATIVE) 05/23/18 13:16 Urine Urobilinogen 2.0 mg/dL (0.2-1.0) H 05/23/18 13:16 Ur Leukocyte Esterase Neg Kaylie/uL (Negative) 05/23/18 13:16 Urine WBC (Auto) 1 /hpf (0-5) 05/23/18 13:16 Urine RBC (Auto) < 1 /hpf (0-3) 05/23/18 13:16 Ur Squamous Epith Cells 6 /hpf (0-5) H 05/23/18 13:16 Urine Bacteria Rare (<OCC) 05/23/18 13:16 Vancomycin Trough < 5.0 ug/mL (5.0-10.0) L 05/23/18 09:36 Urine Opiates Screen Negative (NEGATIVE) 05/16/18 20:42 Urine Methadone Screen Negative (NEGATIVE) 05/16/18 20:42 Ur Barbiturates Screen Negative (NEGATIVE) 05/16/18 20:42 Ur Phencyclidine Scrn Negative (NEGATIVE) 05/16/18 20:42 Ur Amphetamines Screen Negative (NEGATIVE) 05/16/18 20:42 U Benzodiazepines Scrn Negative (NEGATIVE) 05/16/18 20:42 U Oth Cocaine Metabols Negative (NEGATIVE) 05/16/18 20:42 U Cannabinoids Screen Negative (NEGATIVE) 05/16/18 20:42 Alcohol, Quantitative < 10 mg/dl (0-10) 05/16/18 18:36 Blood Type AB POSITIVE 05/19/18 06:55 Blood Type Confirm AB POSITIVE 05/19/18 06:55 Antibody Screen Negative 05/19/18 06:55 - Hospital Course Hospital Course: This patient is a 62 year old female with a PMHx of HTN, and diabetes who presents to the hospital with complaints of 10/10, sharp, postprandial abdominal pain without radiation that began at 11AM today. Patient describes the pain as "crushing" and points to her her lateral abdomen b/l when describing where the pain is. Patient has had this pain before in the past after eating with spontaneous resolution. She denies any fevers, chills, headache, lightheadedness, chest pain, shortness of breath, palpitations, or urinary symptoms. Patient did complain of nausea, and about 4-5 episodes of NBNB vomiting while at home. She also complained of 1 non-bloody loose bowel movement. Patient was admitted on 05/16/18 for choledocholithiasis and pancreatitis diagnosed by CT. CT abdomen/pelvis and abdominal US both revealed cholelithiasis with a contracted distorted gallbladder. GI, Dr. López, and general surgery, Dr. Marshall, were consulted. Dr. Bradley covering for Drs. López and Karolina performed an ERCP which confirmed cholelithiasis and was unable to visualize the cystic ducts which required a biliary stent to be placed. MRCP revealed gallbladder compressed containing gallstones with CBD dilation. CBC revealed leukocytosis which was treated with help of MAGGIE Rios. Due to ERCP results, surgery performed exploration of CBD, lysis of adhesion, cholecystectomy, and intraoperative cholangiogram explosion of CBD. Worsening leukocytosis and fever s/p surgery noted. Urine culture grew enterococcus faecalis sensitive to vancomycin and levofloxacin and blood cultures were negative. Patient also diagnosed with pancreatitis on admission likely secondary to cholelithiasis with a lipase on admission of 1739. Pancreatitis resolved with IV fluid, bowel rest and cholecystectomy. Patient found to have transaminitis which resolved during hospital course. Patient's home Losartan, for hypertension increased from 50 to 100 mg once daily. Patient's home Metformin held while in the hospital and was put on an Insulin sliding scale. Patient will be discharged home with increase of home dose from 500 BID to 1000 BID. Patient continues to feel well, tolerates full diet, has had normal bowel movements, with minimal abdominal pain at rest. Patient's leukocytosis downtrending and will be discharged on Levofloxacin. Patient will be discharged home with drain in place with plan to remove drain and michael on Thursday at follow up with Dr. Marshall. Patient instructed to call Dr. Bradley for 8 week follow up to remove biliary stent. Patient has home PT with [facility] already in place. Primary Diagnosis: Choledocholithiasis s/p cholecystectomy, pancreatitis Patient has been cleared by Surgical Team for discharge. Patient has been taught by Nurse how to empty and care for CECY Drain and confirmed with Daughter In Law that patient is comfortable doing this. Explained all discharge instructions to Daughter In Law who conveyed them to patient and she expressed understanding. The following instructions were explained to patient and a copy will need to be provided to her in [place] upon discharge: 1). Schedule follow up with Surgeon Dr. Reji Marshall for this Thursday05/28/18 by calling his office [phone]. This is important to do to make sure that your drain will be managed/removed properly. Also Dr. Marshall will need to clear you to return to work. 2). Schedule follow up with Graduate Assistant Athletic Trainer Dr. Bradley to take place in 8 weeks by calling his office [phone]. This is important to do to make sure that your stent from the gallbladder area is removed. 3). Schedule follow up with your primary care physician to take place in the next 7 days. You will need to have your blood pressure remeasured through your primary care physician's office at that time to see if you need additional blood pressure medication. You will also need to have your liver enzymes rechecked through your doctor to make sure it is ok for your to restart your cholesterol medication. 4). Please have the following medications filled at your pharmacy on your way home from the hospital. Please use as directed. These are the only medications that you should be taking: Levaquin 500 mg, 1 tablet by mouth 1 time a day (8 AM) starting 05/26/18 until finished, Dispense #3, NO refills Losartan 100 mg, 1 tablet by mouth 1 time a day (8 AM), Dispense #30, NO refills Aspirin 81 mg, 1 tablet by mouth 1 time a day (8 AM), Dispense #30, NO refills Metformin 1,000 mg, 1 tablet by mouth 2 times a day with breakfast and dinner ( 8 AM and 8 PM), Dispense #60, NO refills 5). Please DO NOT take any cholesterol medications such as Atorvastatin until you are cleared to do so by your primary care physician 6). Please have a low sugar Czech Yogurt containing probiotics everyday with lunch at 1 PM for the next 33 days. This will help to keep the good bacteria in your colon from dying from the antibiotic 7). Please make sure that you do NOT lay down or recline for at least 1 hour after your meals as this is the likely cause of the burning sensation under your breast bone after you eat. 8). Stay well hydrated with water. You must drink at least 3 liters of water a day. 9). Be happy, be well, follow the above instructions, and watch a good movie. It is suggested that you watch "My Family" with Alek Branch as it will put a smile on your face. Patient is clear for discharge per Primary, Dr. Tabares, and surgery, Dr. Marshall. Please follow up with Dr. Marshall of [facility] to schedule an appointment to remove staple and drains. He can be reached at [phone]. You should follow up in 8 weeks (Mid-July) to remove the stent in your common bile duct. His office can be reached at [phone]. Follow up with your PMD in the next week to inform them of your hospitalization and control your blood pressure. You will also need medication refills on the new prescriptions and can get this through your PMD. Until you go see your PMD, do NOT resume taking your cholesterol medication: atorvastatin. Please take the following new prescriptions as prescribed: Levaquin 500 mg, 1 tablet by mouth 1 time a day (8 AM) starting 05/26/18 until finished, Dispense #3, NO refills Losartan 100 mg, 1 tablet by mouth 1 time a day (8 AM), Dispense #30, NO refills Aspirin 81 mg, 1 tablet by mouth 1 time a day (8 AM), Dispense #30, NO refills Metformin 1,000 mg, 1 tablet by mouth 2 times a day with breakfast and dinner ( 8 AM and 8 PM), Dispense #60, NO refills Please stay hydrated. Keep wound clean; you may shower, but only with gentle soap and water over your surgical site. Please do NOT strain yourself. Absolutely no lifting heavy objects over 25 pounds. This is a summary of the hospital course. Please refer to the EMR for more details. - Date & Time of H&P Date of H&P: 05/25/18 Time of H&P: 07:10 Discharge Exam - Head Exam Head Exam: ATRAUMATIC, NORMAL INSPECTION, NORMOCEPHALIC - Eye Exam Eye Exam: EOMI Pupil Exam: PERRL - ENT Exam ENT Exam: Mucous Membranes Moist - Neck Exam Additional comments: No lymphadenopathy, neck tenderness - Respiratory Exam Respiratory Exam: Clear to PA & Lateral, NORMAL BREATHING PATTERN. absent: Rales, Rhonchi, Wheezes - Cardiovascular Exam Cardiovascular Exam: REGULAR RHYTHM, RRR, +S1, +S2. absent: Diastolic murmur, Gallop, Rubs - GI/Abdominal Exam GI & Abdominal Exam: Normal Bowel Sounds, Soft. absent: Distended, Firm, Guarding, Rebound, Rigid, Tenderness Additional comments: RUQ surgical site clean dry and intact with multiple michael. Drain in place from surgical site. - Extremities Exam Extremities exam: normal inspection, pedal pulses present Additional comments: no calf tenderness - Neurological Exam Neurological exam: Alert, CN II-XII Intact - Psychiatric Exam Psychiatric exam: Normal Affect, Normal Mood Discharge Plan - Discharge Medications Prescriptions: Aspirin [Ecotrin] 81 mg PO DAILY #30 tabec Levofloxacin [Levaquin] 500 mg PO DAILY #3 tablet Losartan [Cozaar] 100 mg PO DAILY #30 tab metFORMIN [glucOPHAGE] 1,000 mg PO BID #60 tab - Follow Up Plan Condition: STABLE Disposition: HOME/ ROUTINE Instructions: Pancreatitis (DC) Additional Instructions: Patient is clear for discharge per Primary, Dr. Tabares, and surgery, Dr. Marshall. Please follow up with Dr. Marshall of [facility] to schedule an appointment to remove staple and drains. He can be reached at [phone]. You should follow up in 8 weeks (Mid-July) to remove the stent in your common bile duct. His office can be reached at [phone]. Follow up with your PMD in the next week to inform them of your hospitalization and control your blood pressure. You will also need medication refills on the new prescriptions and can get this through your PMD. Until you go see your PMD, do NOT resume taking your cholesterol medication: atorvastatin. Please take the following new prescriptions as prescribed: Levaquin 500 mg, 1 tablet by mouth 1 time a day (8 AM) starting 05/26/18 until finished, Dispense #3, NO refills Losartan 100 mg, 1 tablet by mouth 1 time a day (8 AM), Dispense #30, NO refills Aspirin 81 mg, 1 tablet by mouth 1 time a day (8 AM), Dispense #30, NO refills Metformin 1,000 mg, 1 tablet by mouth 2 times a day with breakfast and dinner ( 8 AM and 8 PM), Dispense #60, NO refills Please stay hydrated. Keep wound clean; you may shower, but only with gentle soap and water over your surgical site. Please do NOT strain yourself. Absolutely no lifting heavy objects over 25 pounds. El paciente est listo para el brit por Primaria, el Dr. Tabares, y la ciruga, el Dr. Marshall. Por favor, dejuan un seguimiento con el Dr. Rolando Spangler para programar rosey nathalie para eliminar alimentos bsicos y drenajes. l puede ser contactado al [phone]. Debe hacer un seguimiento en 8 semanas (mediados de noviembre) para extraer el stent en brooks conducto biliar comn. Brooks oficina puede ser contactada al [phone]. Dejuan un seguimiento con brooks PMD la prxima semana para informarles sobre brooks hospitalizacin y controlar brooks presin arterial. Tambin necesitar reabastecimiento de medicamentos en las nuevas recetas y puede obtenerlo a travs de brooks PMD. Hasta que no vaya a pramod brooks PMD, NO contine tomando brooks medicamento para el colesterol: atorvastatin. Por favor, tome las siguientes nuevas prescripciones segn lo prescrito: Levaquin 500 mg, 1 tableta por va oral 1 vez al da (8 a.m.) comenzando el 26/05 hasta finalizar, Distribuir # 3, NO rellenar Losartan 100 mg, 1 tableta por va oral 1 vez al da (8 AM), dispensacin # 30, sin recargas Aspirina 81 mg, 1 tableta por va oral 1 vez al da (8 AM), Dispensa # 30, NO recargas Metformina 1,000 mg, 1 tableta por va oral 2 veces al da con desayuno y engraved roller inspector ( 8 AM y 8 PM), Dispensa # 60, NO recambios Por favor mantente hidratado. Mantenga la herida limpia; Puede ducharse, jose luis solo con jabn suave y agua sobre brooks sitio quirrgico. Por favor NO te esfuerces. Absolutamente no levantar objetos pesados de ms de 25 libras. Referrals: Reji Marshall MD [Staff Provider] - Melvin Bradley [Staff Provider] -
--- NOTE | 2018-05-25 14:29 | CP.PCM.PN ---
Subjective - Date & Time of Evaluation Date of Evaluation: 05/25/18 Time of Evaluation: 06:30 - Subjective Subjective: PGY-1 general surgery note for Dr Marshall Patient is seen and examined at bedside. Patient reports no acute events overnight. Patient continues eating regular diet. Denies fevers, chills, nausea or vomiting. Objective - Vital Signs/Intake and Output Vital Signs (last 24 hours): Temp Pulse Resp BP Pulse Ox 98.8 F 83 20 146/87 94 L 05/25/18 00:00 05/25/18 00:00 05/25/18 00:00 05/25/18 00:00 05/25/18 00:00 Intake and Output: 05/25/18 05/25/18 06:59 18:59 Intake Total 600 Output Total 300 Balance 300 - Medications Medications: Current Medications Dextrose (Dextrose 50% Inj) 50 ml IVP ONCE PRN PRN Reason: Hypoglycemia Dextrose (Dextrose 50% Inj) 0 ml IV STAT PRN; Protocol PRN Reason: Hypoglycemia Protocol Dextrose (Glutose 15) 0 gm PO ONCE PRN; Protocol PRN Reason: Hypoglycemia Protocol Enoxaparin Sodium (Lovenox) 40 mg SC DAILY [facility] Last Admin: 05/25/18 09:09 Dose: 40 mg Glucagon (Glucagen Diagnostic Kit) 0 mg IM STAT PRN; Protocol PRN Reason: Hypoglycemia Protocol Metronidazole (Flagyl) 500 mg in 100 mls @ 100 mls/hr IVPB Q8H DAVID PRN Reason: Protocol Last Admin: 05/25/18 06:03 Dose: 100 mls/hr Aztreonam 2 gm/ Sodium (Chloride) 100 mls @ 200 mls/hr IVPB Q8H DAVID PRN Reason: Protocol Last Admin: 05/25/18 09:35 Dose: 200 mls/hr Vancomycin/Sodium Chloride (Vancomycin 1 Gm/Ns 200 Ml) 1 gm in 200 mls @ 133 mls/hr IVPB Q12H DAVID PRN Reason: Protocol Stop: 05/26/18 20:01 Last Admin: 05/25/18 09:04 Dose: 133 mls/hr Insulin Aspart (Novolog) 3 unit SC AC [facility] Last Admin: 05/25/18 11:59 Dose: 3 unit Insulin Aspart (Novolog) 0 unit SC ACHS DAVID PRN Reason: Protocol Last Admin: 09/18/18 11:59 Dose: 6 unit Insulin Glargine (Lantus) 5 unit SC HS [facility] Last Admin: 05/24/18 21:49 Dose: 5 units Losartan Potassium (Cozaar) 100 mg PO DAILY [facility] Last Admin: 05/25/18 09:09 Dose: 100 mg Ondansetron HCl (Zofran Inj) 4 mg IVP Q6H PRN PRN Reason: Nausea/Vomiting Oxycodone/Acetaminophen (Percocet 5/325 Mg Tab) 1 tab PO Q4H PRN PRN Reason: Pain, moderate (4-7) Stop: 05/26/18 09:54 Pantoprazole Sodium (Protonix Inj) 40 mg IVP DAILY [facility] Last Admin: 05/25/18 09:09 Dose: 40 mg Saccharomyces Boulardii (Florastor) 250 mg PO Q12 [facility] Last Admin: 05/25/18 09:09 Dose: 250 mg Senna/Docusate Sodium (Senokot S 50 Mg-8.6 Mg) 1 tab PO BID [facility] Last Admin: 05/25/18 09:09 Dose: 1 tab Zinc Acetate/Diphenhydramine (Benadryl 1% Zinc Acetate -0.1%) 1 cre TOP DAILY PRN PRN Reason: Itching / Pruritus - Labs Labs: 05/25/18 07:50 05/25/18 07:50 PT 12.9 SECONDS (9.7-12.2) H 05/18/18 07:17 INR 1.2 05/18/18 07:17 APTT 36 SECONDS (21-34) H 05/18/18 07:17 - Constitutional Appears: Well, Non-toxic, No Acute Distress - Head Exam Head Exam: ATRAUMATIC, NORMAL INSPECTION, NORMOCEPHALIC - Eye Exam Eye Exam: EOMI, Normal appearance - ENT Exam ENT Exam: Mucous Membranes Moist, Normal Exam - Neck Exam Neck Exam: Full ROM, Normal Inspection - Respiratory Exam Respiratory Exam: NORMAL BREATHING PATTERN. absent: Accessory Muscle Use, Respiratory Distress - GI/Abdominal Exam GI & Abdominal Exam: Soft - Extremities Exam Extremities Exam: Full ROM, Normal Inspection - Back Exam Back Exam: Full ROM, NORMAL INSPECTION - Neurological Exam Neurological Exam: Alert, Awake, Oriented x3 - Psychiatric Exam Psychiatric exam: Normal Affect, Normal Mood - Skin Skin Exam: Intact, Normal Color, Warm Assessment and Plan - Assessment and Plan (Free Text) Assessment: 62F with choledocholithiasis and gallstone pancreatitis s/p CBD exploration POD6 Plan: -Patient clear to discharge - Patient to follow up with Dr Marshall on Monday 05/28. Patient instructed to call his office to make appointment - Patient to follow up with GI Dr Bradley in 8 weeks. Patient instructed to call his office to make appointment. - Patient to continue regular diet - Pain medication as needed - patient indicated to avoid heavy lifting Plan to be discussed with Dr Rolando Mayberry PGY-1
--- NOTE | 2018-06-05 15:11 | CARD ---
APPROVED REPORT Date of service: 05/17/2018 EKG Measurement Heart [id number] <Conclusion> Normal sinus rhythm Normal ECG
--- NOTE | 2018-06-11 08:13 | OP ---
PROCEDURE DATE: 05/19/2018 PREOPERATIVE DIAGNOSIS: Choledocholithiasis. POSTOPERATIVE DIAGNOSIS: Choledocholithiasis. PROCEDURE: Cholecystectomy with common bile duct exploration and cholangiogram. INDICATIONS: This is a 62-year-old woman who was found to have choledocholithiasis on ERCP. The stones were unable to be removed, so therefore an open common bile duct exploration was indicated. DESCRIPTION OF PROCEDURE: The patient was placed in a supine position on the operating table. Time-outs were performed using both preinduction and pre-incision AC checklist to verify correct patient, procedures, diet and additional critical information prior to the beginning of the procedure. After induction of general endotracheal anesthesia, Lundberg catheter and nasogastric tube were placed and then the abdomen was prepped and draped in the usual sterile fashion. A right subcostal incision was made two fingerbreadths below the costal margin extending from the subxiphoid region to the anterior axillary line. The subcutaneous tissue was then divided using electrocautery and the peritoneal cavity was entered. The falciform was then doubly ligated with 0 silk ties and divided. At this point, attention was turned towards performing the initial cholecystectomy. The gallbladder was elevated and the peritoneum overlying the Calot's triangle was incised. The cystic duct and cystic artery were then identified and encircled using 2-0 silk ties. Cystic duct was cannulated with a cholangiogram catheter and the cholangiogram was obtained demonstrating a dilated common bile duct containing two stones distally. The cystic duct and cystic artery were then ligated proximally and distally and divided and the gallbladder was taken off the liver bed using blunt dissection and electrocautery and then sent to Pathology for permanent section. At this point, the common bile duct was then identified. A 29-gauge butterfly needle was used to cannulate the duct and aspirate demonstrating bile and not blood and then we were in fact in the common bile duct. Then a cholangiogram was then performed again demonstrating the common bile duct that contained the two distal stones. A Sarah maneuver was then performed by incising the peritoneal attachments lateral to the duodenum and gently rotating duodenum and head of the pancreas medially. The CBD duct and head of the pancreas were palpated and were without any obvious abnormality, though the two stones were palpated just superior to the head of the pancreas within the CBD. The hepatoduodenal ligament overlying the CBD was then incised to expose the anterior wall of the common bile duct approximately 2 cm proximal to the pancreas. Two 4-0 Vicryl stay sutures were placed on the anteromedial wall of the CBD and a 1 cm incision was then made between these sutures using a #11 blade. Bile was aspirated and this was sent for culture and Gram stain. Then, we attempted to gently milk the stones from the distal duct and remove them via the choledochotomy; however, this was unsuccessful. Further attempts were made with Richard stone forceps as well as a biliary Rita catheter placed proximal and distally. Again, this was unsuccessful. Decision was then made as to what the next appropriate step would be considering choledochojejunostomy versus a and sphincterotomy. However, the decision was made to attempt giving the patient 1 g of glucagon. The glucagon was administered and then the stones were compressed distally. At this point, due to the dilation of the ampulla from the administration of glucagon, the stones were able to pass into the duodenum. A cholangiogram was then repeated, which showed that the CBD though still dilated, now containing no stones and that contrast was freely flowing into the duodenum. It is also important to note that a stent was placed in the prior ERCP, so now that the CBD was empty, the determination was that a T-tube would not be needed considering the placement of the choledocho stent. So at this point, we closed the choledochotomy using 5-0 Vicryl suture in an interrupted fashion. We then tested this with saline via our cystic opening, which confirmed that the choledochotomy was well closed. Another cholangiogram was repeated, which showed no extravasation of contrast and again that the stones were no longer within the CBD and had been moved into the duodenum. At this point, the cystic duct was then again re-ligated with 2-0 silk and closed. At this point, a 19-[place] Florentin drain was placed in the right upper quadrant in the subhepatic space and brought out through a separation incision lateral. Hemostasis was obtained. The abdomen was irrigated with saline. Omentum was placed over the choledochotomy. The abdominal fascia was closed using running 0 PDS and then the skin was closed with subcuticular 3-0 Vicryl and then michael. The subhepatic drain was then placed on bulb suction. The patient tolerated the procedure well and was wheeled back to the recovery unit in stable condition. There were no immediate complications. EBL was approximately 300 mL. Vitaly KmDO <Reji Marshall MD>
== END 2018-05-25 14:49 | disposition home or self-care (01) | DRG 411 ==
LOC: C.ER 15:04 → C.3T 18:22 → OBSVTOIN 18:22
PROVIDERS: ADMIT Family Medicine; ATTEND Family Medicine
PROC: 0F798DZ Dilation of Common Bile Duct with Intraluminal Device, Via Natural or Artificial Opening Endoscopic (ICD-10-PCS; 2018-05-17)
PROC: BF13YZZ Fluoroscopy of Gallbladder and Bile Ducts using Other Contrast (ICD-10-PCS; 2018-05-19)
PROC: 0FT40ZZ Resection of Gallbladder, Open Approach (ICD-10-PCS; principal; 2018-05-19 12:30)
PROC: 0FC90ZZ Extirpation of Matter from Common Bile Duct, Open Approach (ICD-10-PCS; 2018-05-19 12:30)
DX: K80.65 Calculus of gallbladder and bile duct with chronic cholecystitis with obstruction (principal); K85.10 Biliary acute pancreatitis without necrosis or infection; I48.92 Unspecified atrial flutter; E11.65 Type 2 diabetes mellitus with hyperglycemia; E78.5 Hyperlipidemia, unspecified; I10 Essential (primary) hypertension; F03.90 Unspecified dementia, unspecified severity, without behavioral disturbance, psychotic disturbance, mood disturbance, and anxiety; K59.00 Constipation, unspecified; Z95.0 Presence of cardiac pacemaker; L29.9 Pruritus, unspecified; Z88.0 Allergy status to penicillin

== ENCOUNTER 2018-06-09 12:54 | Emergency (ER) | payer OTHER ==
[2018-06-09 13:13] VITALS: BP 127/84; RESP 20
[2018-06-09 14:04] VITALS: PULSE 120; TEMP 99.8; O2SAT 99
--- NOTE | 2018-06-09 14:06 | C.PDOC ---
History Of Present Illness 62 year old female presents to the ED for evaluation of surgical wound that opened this morning. Patient is s/p cholecystectomy on 05/22/[address] Marshall. She also noticed some clear and bloody fluid leaking. Patient reports mild pain near the surgical site and has had a poor appetite since surgery. She is tolerating fluids. Denies any nausea, vomiting, or fever. Time Seen by Provider: 06/09/18 13:35 Chief Complaint (Nursing): Abnormal Skin Integrity History Per: Patient History/Exam Limitations: no limitations Onset/Duration Of Symptoms: Hrs Current Symptoms Are (Timing): Still Present Past Medical History Reviewed: Historical Data, Nursing Documentation, Vital Signs Vital Signs: Last Vital Signs Temp 99.8 F H 06/09/18 14:03 Pulse 120 H 06/09/18 14:03 Resp 20 06/09/18 14:03 BP 127/84 06/09/18 13:12 Pulse Ox 99 06/09/18 14:03 - Medical History PMH: HTN, Hyperlipidemia Surgical History: Cholecystectomy Family History: States: No Known Family Hx - Social History Hx Tobacco Use: No Hx Alcohol Use: No Hx Substance Use: No Review Of Systems Except As Marked, All Systems Reviewed And Found Negative. Constitutional: Negative for: Fever, Chills Gastrointestinal: Positive for: Abdominal Pain (mild). Negative for: Nausea, Vomiting, Diarrhea Skin: Positive for: Other (surgical wound opening to RUQ, + bloody/clear fluid) Neurological: Negative for: Weakness, Dizziness Physical Exam - Physical Exam Appears: Non-toxic, No Acute Distress Skin: Warm, Dry Head: Atraumatic, Normacephalic Eye(s): bilateral: Normal Inspection, PERRL, EOMI Neck: Normal ROM Chest: Symmetrical Cardiovascular: Rhythm Regular, No Murmur Respiratory: Normal Breath Sounds, No Accessory Muscle Use, Other (NARD) Gastrointestinal/Abdominal: Soft, No Tenderness, No Distention, Other (Healing surgical incision to right upper quadrant, no cellulitis, less than 1 cm wound dehiscence with serosanguineous fluid draining from the lateral aspect of wound, no pus) Extremity: Bilateral: Atraumatic, Normal Color And Temperature, Normal ROM Neurological/Psych: Oriented x3, Normal Speech ED Course And Treatment O2 Sat by Pulse Oximetry: 99 (RA) Pulse Ox Interpretation: Normal Progress - Re-Evaluation Re-evaluation Note: 06/09/18 1:45pm Patient seen and evaluated by Dr. Marshall at bedside, will place drains. 2:05pm S/p bedside drains. Per Dr. Marshall, requesting discharge with Cipro 500mg BID. Patient instructed to follow up with Dr. Marshall in the office in 2 days. - Patient Plan Patient Plan: Discharge Medical Decision Making Medical Decision Making: Plan: * Discussed with Dr. Marshall, informed that patient is in the ED, and will come to evaluate Disposition Counseled Patient/Family Regarding: Diagnosis, Need For Followup, Rx Given - Disposition Referrals: Reji Marshall MD [Staff Provider] - Disposition: HOME/ ROUTINE Disposition Time: 14:05 Condition: GOOD Prescriptions: Ciprofloxacin [Cipro] 1 tab PO BID #14 tab Instructions: Surgical Wound (DC) Forms: [facility] (Armenian) - Clinical Impression Clinical Impression: Seroma - Scribe Statement The provider has reviewed the documentation as recorded by the Scribe (Alisa Marks) Provider Attestation: All medical record entries made by the Scribe were at my direction and personally dictated by me. I have reviewed the chart and agree that the record accurately reflects my personal performance of the history, physical exam, medical decision making, and the department course for this patient. I have also personally directed, reviewed, and agree with the discharge instructions and disposition.
--- NOTE | 2018-06-15 01:34 | CON ---
DATE: 06/09/2018 This is an elderly white female who has been recently discharged from the hospital for open cholecystectomy and common duct exploration and retaining of the stents. She had very contracted gallbladder, requiring difficult surgery and removal of the stones from the common duct. This was done following first laparoscopy and then open cholecystectomy via a right upper quadrant incision, Sarah incision. She was discharged with a drain. She was seen in the office recently with removal of the michael. The drain has been removed at that point. She came to the emergency room today because of drainage from the wound. This looks like a large seroma, but there was no evidence of any infection. Therefore, the wound was slightly enlarged. Probing was done and a drain was left in place after extracting all the available seroma. She will be seen in the office for followup and removal of the packing inserted. She was also given some antibiotics for prophylaxis. Reji Marshall MD
== END 2018-06-09 14:17 | disposition home or self-care (01) ==
LOC: C.ER 12:54
DX: K91.873 Postprocedural seroma of a digestive system organ or structure following other procedure (principal); Y83.9 Surgical procedure, unspecified as the cause of abnormal reaction of the patient, or of later complication, without mention of misadventure at the time of the procedure